=== PATIENT | female | born 1950 | race Caucasian/White ===

== ENCOUNTER 2018-06-22 05:56 | Inpatient (IN) | payer MEDICARE ==
[~2018-06-22] VITALS: Ht 149.9 cm; Wt 74.4 kg
[~2018-06-22 05:56] MED LIST: ALBU2.5V2 IH; ASCO125T PO; BUDE0.5A3 IH; BUPR100T6 PO; DIAZ5TAB PO; IPRA4AER IH; PED1TAB. PO; SUVO10TA2 PO; TRAM50TA PO; VERA180C2 PO; [UNRECOGNIZED DRUG - CODE] PO
[2018-06-22 06:00] VITALS: BP 158/73
[2018-06-22] MEDS ORDERED: DUONEB 0.5 MG-3 MG/3 ML SOLN IH STA ×3 (06:12→13:39)
[2018-06-22] MEDS ORDERED: SOLU-MEDROL IV STA (06:14)
[2018-06-22] MEDS ORDERED: DUONEB 0.5 MG-3 MG/3 ML SOLN IH ONE ×2 (06:16→15:58)
[2018-06-22] MEDS ORDERED: SOLU-MEDROL ONE (06:16)
--- NOTE | 2018-06-22 06:19 | ER.PDOC ---
General Chief Complaint: Requesting Medical Care Stated Complaint: ASTHMA Time seen by MD: 06:16 Source: patient Exam Limitations: no limitations History of Present Illness Initial Comments 67 y/o f with hx off and on sob last 2-3 days, to ED with increased wheezing this am. No chest pain, poss fever, no n/v/d. Did take breathing tx this am at home. Timing/Duration: 4-6 hours Severity: severe Activities at Onset: activity/exertion, rest Prior Episodes/Possible Cause: frequent episodes Modifying Factors: improves with albuterol inhaler, improves with albuterol nebulizer, improves with coughing Associated Symptoms: cough, wheezing Prior symptoms/Treatment: Similar symptoms previous Allergies: Coded Allergies: Penicillins (Unverified Allergy, Severe, CAN'T BREATH,SEVERE HEADACHE,RASH , 09/13/13) Latex, Natural Rubber (Verified Adverse Reaction, Severe, PULLS SKIN OFF, 02/05/14) Home Meds Reported Medications Suvorexant (Belsomra) 10 Mg Tablet, 10 MG PO DAILY, TABLET 11/29/14 Ipratropium/Albuterol Sulfate (COMBIVENT RESPIMAT INHAL SPRAY) Unknown Strength Aer.w.adap, IH RTQID PRN for SHORTNESS OF BREATH 09/13/13 Cyanocobalamin (Vitamin B-12) (VITAMIN B-12) 250 Mcg Tab.chew, PO DAILY, TAB.CHEW 09/13/13 Ped Multivit #22/Vit D3/Vit K (Multivitamins Chewable Tablet) 1 Each Tab.chew, PO DAILY, TAB.CHEW 09/13/13 Ascorbic Acid (Vitamin C) 125 Mg Tab.chew, PO DAILY, TAB.CHEW 09/13/13 Tramadol Hcl (TRAMADOL HCL) 50 Mg Tablet, 50 MG PO BID PRN for PAIN, TABLET 09/13/13 Bupropion Hcl (WELLBUTRIN) 100 Mg Tablet, 300 MG PO DAILY, TABLET 09/13/13 Diazepam (VALIUM) 5 Mg Tablet, 5 MG PO HS, TABLET 09/13/13 Ipratropium/Albuterol Sulfate (COMBIVENT RESPIMAT INHAL SPRAY) 4 Gm Aer.w.adap, IH DAILY 09/13/13 Albuterol Sulfate (ALBUTEROL SULFATE) 2.5 Mg/3 Ml Vial.neb, 2.5 MG IH DAILY 5/1/14 Budesonide (PULMICORT) 0.5 Mg/2 Ml Ampul.neb, 0.5 MG IH DAILY 09/13/13 Verapamil Hcl (VERAPAMIL ER) 180 Mg Cap24h.pel, 180 MG PO DAILY 09/13/13 Past Medical History Medical History: asthma Surgical History: appendectomy, cholecystectomy, hysterectomy, shoulder Family History Significant Family History: no pertinent family hx Social History Smoking: non-smoker Alcohol Use: none Drug Use: none Reviewed Nursing Reviewed: Vital Signs, Abn. Noted, Nursing Assessment Review of Systems Constitutional: see HPI, fever EENTM: no symptoms reported, other Respiratory: see HPI, cough, shortness of breath, wheezing Cardiovascular: no symptoms reported; denies see HPI, denies chest pain, denies edema, denies palpitations, denies syncope, denies other Gastrointestinal: no symptoms reported Genitourinary: no symptoms reported Musculoskeletal: no symptoms reported Skin: no symptoms reported Psychiatric/Neurological: no symptoms reported Endocrine: no symptoms reported Hematologic/Lymphatic: no symptoms reported All Other Systems: Reviewed and Negative Physical Exam General Appearance: Moderate Distress HEENT: PERRL/EOMI, Normal ENT Inspection, TMs Normal, Pharynx Normal Neck: Non-Tender, Full Range of Motion, Supple, Normal Inspection Respiratory: respiratory distress, decreased breath sounds, prolonged expirations, wheezing Cardiovascular: Normal Peripheral Pulses, Regular Rate, Rhythm, No Edema, No Gallop, No JVD, No Murmur Gastrointestinal: Normal Bowel Sounds, No Organomegaly, No Pulsatile Mass, Non Tender, Soft Rectal: Normal Exam Extremities: Normal Range of Motion, Non-Tender, Normal Inspection, No Pedal Edema, No Calf Tenderness, Normal Capillary Refill 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, No Motor/Sensory Deficits, Alert, Normal Mood/Affect, Oriented x 3 Skin: Normal Color, Warm/Dry Lymphatic: No Adenopathy Results/Orders Results/Orders Laboratory Tests Test 06/22/18 06:25 06/22/18 06:45 06/22/18 07:43 White Blood Count 8.3 10^3/uL (4.5-11.0) Red Blood Count 4.51 10^6/uL (4.00-5.20) Hemoglobin 13.4 g/dL (12.0-15.0) Hematocrit 41.1 % (36.0-46.0) Mean Corpuscular Volume 91.1 fL (78-100) Mean Corpuscular Hemoglobin 29.7 pg (26-34) Mean Corpuscular Hemoglobin Concent 32.6 g/dL (33-37) Red Cell Distribution Width 14.9 % (11.5-14.5) Platelet Count 217 10^3/uL (150-400) Mean Platelet Volume 9.0 fL (7.8-11.0) Prothrombin Time 10.3 SEC (9.8-11.9) Prothrombin Time INR (Non-Therap) 1.0 Activated Partial Thromboplast Time 25.1 SEC (24.67-30.72) Sodium Level 138 mmol/L (132-145) Potassium Level 3.5 mmol/L (3.6-5.2) Chloride Level 100.0 mmol/L (96-109) Carbon Dioxide Level 25.2 mmol/L (20.0-32) Anion Gap 16.3 Blood Urea Nitrogen 17 mg/dL (7-18) Creatinine 0.98 mg/dL (0.59-1.40) Estimated GFR () 68.7 (>/=60) BUN/Creatinine Ratio 17.0 Glucose Level 105 mg/dL (70-110) Calcium Level 8.7 mg/dL (8.4-10.5) Total Bilirubin 0.7 mg/dL (0.2-1.0) Aspartate Amino Transf (AST/SGOT) 17 U/L (0-35) Alanine Aminotransferase (ALT/SGPT) 19 U/L (12-78) Alkaline Phosphatase 107 U/L (50-136) Creatine Kinase MB < 0.5 ng/mL (0.5-3.6) Troponin I < 0.02 ng/mL (0.00-0.05) Pro-B-Type Natriuretic Peptide 710 pg/mL (0-125) Total Protein 7.7 g/dL (6.4-8.2) Albumin 3.6 g/dL (3.4-5.0) Globulin 4.1 Influenza Type A Antigen POSITIVE (NEG) Influenza B Immunofluorescence NEGATIVE (NEG) Blood Gas Sample Site LEFT BRACHIAL ARTRY Blood Gas pH 7.578 (7.350-7.450) Blood Gas PCO2 30.3 mmHg (35.0-45.0) Blood Gas PO2 73.9 mmHg (75.0-100.0) Blood Gas HCO3 27.6 mmol/L (22.0-26.0) Blood Gas Base Excess 6.2 mmol/L (-2.0-2.0) Tim Test N/A Arterial Blood Oxygen Saturation 96.1 % (95-) Deoxyhemoglobin 3.8 % (0.2-0.6) Carboxyhemoglobin 1.1 % (0.5-1.5) Methemoglobin 0.3 % (0.2-0.6) Total Hemoglobin 13.8 % (13.5-17.5) Total Oxygen Concentration 18.4 % (13.5-17.5) Lactic Acid (Blood Gas) 1.1 MMOL/L (0.5-1.0) Blood Gas Temperature 37 Oxygen Delivery Method (LAB) RA FiO2 21 % (20-101) Bicarbonate 28.6 mmol/L (23-27) Administered Medications Medications (Trade) Dose Ordered Sig/Fani Route PRN Reason Start Time Stop Time Status Last Admin Dose Admin Albuterol/ Ipratropium (Duoneb 0.5 Mg-3 Mg/3 ml Soln) 3 ml STAT STAT IH 06/22/18 06:12 06/22/18 06:14 DC 06/22/18 06:23 Methylprednisolone Sodium Succinate (Solu-Medrol) 125 mg STAT STAT IV 06/22/18 06:14 06/22/18 06:17 DC 06/22/18 06:[address] Daugherty at 0700 EKG/XRAY/CT/US EKG: NSR EKG Comments: sinus tach XRAY: chest (No active disease) Departure Time of Disposition: 08:21 Disposition: 09 ADMITTED INPATIENT Impression: Primary Impression: Status asthmaticus Additional Impression: Influenza A Condition: Stable Referrals: MARCIE COYNE MD (PCP) PRIMARY CARE PROVIDER Comments Admitted to Dr. Wesley Duration or Time Spent with Pa: 60 mins Problem Qualifiers Primary Impression: Status asthmaticus Asthma severity: moderate Asthma persistence: unspecified Qualified Codes: J45.902 - Unspecified asthma with status asthmaticus BÁRBARA LOCKHART DO Jun 22, 2018 06:19 FABBY DAUGHERTY MD Jun 22, 2018 08:24
[2018-06-22 06:34] LABS: HEMOGLOBIN 13.4 g/dL (12.0-15.0); MEAN CELL HGB 29.7 pg (26-34); MEAN CELL HGB CONCENTRATION 32.6 g/dL (33-37); MEAN CORP VOLUME 91.1 fL (78-100); RED CELL DISTRIBUTION WIDTH 14.9 % (11.5-14.5); WHITE BLOOD CELL 8.3 10^3/uL (4.5-11.0)
--- NOTE | 2018-06-22 06:46 | PCM.EKG ---
[facility] Test Date: 2018-06-22 Test Time: 06:42:21 Pat Name: KEVIN ENCARNACION Department: Room: Gender: F Stock Holder: NICOLÁS : 1950 Requested By: BÁRBARA LOCKHART Order Number: [id number] Reading MD: Measurements Intervals [place] Rate: 115 P: 70 VA: 130 QRS: 62 QRSD: 70 T: 56 QT: 304 QTc: 420 Interpretive Statements Sinus tachycardia Low voltage QRS Borderline ECG Compared to ECG 06/27/2017 13:16:56 Atrial premature complex(es) no longer present Please click the below link to view image of tracing.
--- NOTE | 2018-06-22 07:12 | DIREP ---
PROCEDURE:CHEST 1 VIEW COMPARISON:[facility], CT, CT CHEST W/O, 06/27/2017, 03:05 PM. [facility], CR, XRAY CHEST SINGLE VW, 06/27/2017, 01:16 PM. [facility], CR, XRAY CHEST SINGLE VW, 07/21/2015, 01:20 PM. INDICATIONS:Short of breath FINDINGS: LUNGS/PLEURA:No significant pulmonary parenchymal abnormalities. No effusions. VASCULATURE:Normal. Unremarkable pulmonary vasculature. CARDIAC:Normal. No cardiac silhouette abnormality or cardiomegaly. MEDIASTINUM:Normal. No visible mass or adenopathy. BONES:Left shoulder arthroplasty pre surgical anchor in the right humeral head. Degenerative changes of the right shoulder. OTHER:Negative. CONCLUSION:No acute cardiopulmonary abnormalities. Dictated by: Douglas Matt M.D. on 06/22/2018 at 07:08 AM
[2018-06-22 07:15] LABS: ALANINE AMINOTRANSFERASE(ML) 19 U/L (12-78); ALKALINE PHOSPHATASE 107 U/L (50-136); ASPARTATE AMINO TRANSFERASE 17 U/L (0-35); CALCIUM 8.7 mg/dL (8.4-10.5); CARBON DIOXIDE 25.2 mmol/L (20.0-32); GLUCOSE 105 mg/dL (70-110)
[2018-06-22 07:55] LABS: ABG PCO2 30.3 mmHg (35.0-45.0); ABG PH 7.578 (7.350-7.450); BE(B) 6.2 mmol/L (-2.0-2.0); HCO3act 27.6 mmol/L (22.0-26.0); pO2 73.9 mmHg (75.0-100.0)
--- NOTE | 2018-06-22 08:04 | NUR ---
IRIS DALTONA ON PHONE WITH DR SIMMONS AT THIS TIME REGARDING PT.
[2018-06-22] MEDS ORDERED: DECADRON IH STA (08:07)
[2018-06-22] MEDS ORDERED: XOPENEX IH STA (08:07)
--- NOTE | 2018-06-22 08:26 | PRM.ACF1 ---
Date and Time Date and Time Time: Admission Criteria Forms ASTHMA Clinical Indications for Inpatient Care ([place]/check the applicable condition/criteria) Admission is indicated for 1 or more of the following(1)(2)(3)(4): [ ] I. Ventilatory support required [ ] II. Peak expiratory flow rate less than 25% of predicted or personal best before treatment [ ]III. Peak expiratory flow rate less than 40% of predicted or personal best after treatment [ ]IV. Peak expiratory flow rate between 40% and 60% of predicted or personal best after treatment, and 1 or more of the following: [ ] a. History of asthma requiring intubation [ ] b. Hospitalization for asthma within the past year [ ] c. Current or recent use of oral corticosteroids for asthma [ ] d. Use of more than 1 canister of inhaled beta2-agonist in past month [ ] e. Exacerbation due to allergic reaction to food [ ] f. Inadequate access to medical care or medications [ ] g. Adherence to post-discharge asthma regimen cannot be assured (eg, psychosocial problems, poor adherence, no available follow-up care) [ ] V. Hypoxemia as indicated by 1 or more of the following (1): [ ] a. Previously normal respiratory status with 1 or more of the following [ ]i. Arterial oxygen saturation (SaO2) less than 90% or arterial partial pressure of oxygen (PO2) less than 60 mm Hg (8.0 kPa) on room air[A] [ ] ii. Oxygen required to keep SaO2 greater than 90% or PO2 greater than 60 mm Hg (8.0 kPa) [ ] b. Chronic lung disease with 1 or more of the following (2): [ ]i. New requirement for supplemental oxygen to keep SaO2 at baseline or acceptable level [ ]ii. Required supplemental oxygen performable only in acute inpatient setting [ ]. PaCO2 elevation from baseline by 2 mm Hg (0.27 kPa) or greater [ ]VII. Cyanosis [ ]VIII. Silent chest (absent or markedly diminished breath sounds) [ ]IX. Cardiac dysrhythmia (eg, Bradycardia) [ ]a. Bradycardia as indicated by 1 or more of the following(1)(2): [ ] i. Heart rate less than 60 beats per minute in adult or child age 6 years or older [ ] ii. Heart rate less than 70 beats per minute in child 3 to 5 years of age [ ] iii. Heart rate less than 80 beats per minute in child 1 or 2 years of age [ ]iv. Heart rate less than 90 beats per minute in infant 6 to 11 months of age [ ] v. Heart rate less than 100 beats per minute in infant 3 to 5 months of age [ ] vi. Heart rate less than 110 beats per minute in from (full-term) to 3 months of age [ ]X. Hemodynamic instability indicated by 1 or more of the following(1)(2)(3 )(4)(5)(6)(7): [ ]a. Vital sign abnormality not readily corrected by appropriate treatment within 12 to 24 hours indicated by 1 or more of the following: [ ]i. Tachycardia as indicated by 1 or more of the following (1)(2): [ ] 1. Heart rate greater than 100 beats per minute in adult or child age 6 years or older [ ] 2. Heart rate greater than 115 beats per minute in child 3 to 5 years of age [ ] 3. Heart rate greater than 125 beats per minute in child 1 or 2 years of age [ ] 4. Heart rate greater than 130 beats per minute in 6 to 11 months of age [ ] 5. Heart rate greater than 150 beats per minute in infant 3 to 5 months of age [ ] 6. Heart rate greater than 160 beats per minute in 1 or 2 months of age [ ]ii. Hypotension as indicated by ALL of the following (1)(2)(3)(4): [ ] A. Not patient baseline (eg, healthy adult with low SBP) or intentional therapeutic goal (eg, low SBP as treatment goal in heart failure) [ ] B. Low blood pressure as indicated by 1 or more of the following: [ ]1. New onset of SBP less than 90 mm Hg in adult or child 10 years or older [ ]2. New decrease in SBP greater than 40 mm Hg in adult or child 10 years or older [ ]3. Mean arterial pressure[A] less than 70 mm Hg in adult or child 10 years or older [ ]4. New onset of SBP less than sum of 70 mm Hg plus twice patient's age in years in child 1 to 9 years of age [ ]5. New onset of SBP less than 70 mm Hg in infant 1 to 11 months of age [ ] iii. Orthostatic vital sign changes as indicated by 1 or more of the following (1): [ ] A. Fall in SBP of 20 mm Hg or more 1 to 3 minutes after patient sits or stands from recumbent position [ ] B. Fall in DBP of 10 mm Hg or more 1 to 3 minutes after patient sits or stands from recumbent position [ ]b. Vital sign abnormality that is severe indicated by 1 or more of the following: [ ]i. Inadequate perfusion as indicated by 1 or more of the following : [ ] A. Lactic acidosis, with lactic acid greater than 18 mg/dL (2 mmol /L) or base excess < -5mEq/L [ ]B. New abnormal capillary refill (longer than 3 seconds) [ ] C. Other metabolic acidosis (arterial pH < 7.35)not otherwise explained [ ]D. Myocardial ischemia [ ]E. Altered mental status indicated by 1 or more of the following(1) (2)(3)(4): [ ]1. Confusional state (eg,disorientation,difficulty following commands,deficit in attention) [ ]2. Lethargy (awake or arousal,but with drowsiness;reduced awareness of self and environment) [ ]3. Obtundation(ie,arousal with strong stimuli,lessened interesting environment, slowed responses to stimulation) [ ]4. Stupor (may be arousal but patient does not return to normal baseline level of awareness) [ ]5. Coma (not arousal) [ ]F. Reduced urine output as indicated by 1 or more of the following(1)(2): [ ]1. Urine output less than 0.5 mL/kg/hour for 6 hours in adult [ ]2. Anuria (urine output less than 0.1 mL/kg/hour) for 4 hours in any age group [ ]3. Reduced output in child as indicated by 1 or more of the following (3): [ ]i. Urine output less than 2 mL/kg/hour for 6 hours in younger than 2 years [ ] ii. Urine output less than 1 mL/kg/hour for 6 hours in child younger than 12 years [ ] iii. Urine output less than 0.75 mL/kg/h [ ] ii. Mean arterial pressure[A] less than 60 mm Hg [ ] iii. Mean arterial pressure[A] less than 70 mm Hg after 30 minutes of appropriate treatment (eg, fluid resuscitation) [ ]iv. IV inotropic or vasopressor medication required to maintain adequate blood pressure or perfusion [ ]v. Sustained heart rate greater than 120 beats per minute in adult or child 6 years or older [ ] XI. Altered mental status indicated by 1 or more of the following(1)(2)(3) (4): [ ] a. Confusional state (eg,disorientation,difficulty following commands, deficit in attention) [ ] b. Lethargy (awake or arousal,but with drowsiness;reduced awareness of self and environment) [ ] c. Obtundation(ie,arousal with strong stimuli,lessened interesting environment, slowed responses to stimulation) [ ] d. Stupor (may be arousal but patient does not return to normal baseline level of awareness) [ ] e. Coma (not arousal) [ ]XII. Radiographic evidence of complication requiring inpatient treatment ( eg, pneumonia, pneumothorax) [ ]XIII. Inpatient admission required[A] rather than observation care) because of 1 or more of the following: [ ]a. Respiratory finding that is severe or persistent (eg, dyspnea, Tachypnea, accessory muscle use) [ ] i. Tachypnea as indicated by respiratory rate of 1 or more of the following(1)(2): [ ]1. Greater than 18 breaths per minute in adult or child age 12 years or older [ ]2. Greater than 22 breaths per minute in child 6 to 11 years of age [ ]3. Greater than 25 breaths per minute in child 3 to 5 years of age [ ]4. Greater than 30 breaths per minute in child 1 or 2 years of age [ ]5. Greater than 40 breaths per minute in 6 to 11 months of age [ ]6. Greater than 45 breaths per minute in 3 to 5 months of age [ ]7. Greater than 60 breaths per minute in 1 or 2 months of age [ ]ii. Other condition, treatment, or monitoring requiring inpatient admission Extended stay beyond goal length of stay may be needed for(1)(25)(27): [ ] I. Severe respiratory distress or respiratory failure(22)(23)(28)(29) [ ] a. Anticipate possible mechanical ventilation or noninvasive positive pressure ventilation. [ ] b. Patient requiring mechanical ventilation or noninvasive ventilation for status asthmaticus may require longer duration of therapy before adequate response. [ ]c. Anticipate intense bronchodilator treatment with continuous nebulization. [x ] II. Status asthmaticus [ ]a. Resistant and severe signs and symptoms of asthma despite aggressive conventional treatment, including intubation and mechanical ventilation, may require general anesthesia. [ ]III. Chronic obstructive asthma (eg, asthma-COPD overlap syndrome) (30) [ ]a. Severe attacks may result in slow resolution of admission indicators. [ ] b. Anticipate continued intense bronchodilation treatment and flow monitoring. [ ] IV. Secondary causes and complications (24) [ ]a. Infectious causes (eg, pneumonia) and asthma complications(eg , pneumothorax) may require additional therapy. [ ]V. Clinically significant exacerbation of comorbidities (eg, congestive heart failure, atrial fibrillation) [ ]a. Anticipate specific treatment of comorbidity. [ ]. Slow resolution [ ] a. Severe attacks may result in slow resolution of admission indicators. oxygen as needed. [ ] b. Anticipate continued intense bronchodilation treatment, flow monitoring, and oxygen as needed [ ]VII. Older patient (28) [x ]a. Patient 65 years or older may require longer acute hospital care. The original [employer] content created by [employer] has been revised. The portions of the content which have been revised are identified through the use of italic text or in bold, and [employer] has neither reviewed nor approved the modified material. All other unmodified content is copyright [employer] FOOTNOTES: (Only relevant footnotes and references have been used in this form) FABBY DAUGHERTY MD Jun 22, 2018 08:26
[2018-06-22] MEDS ORDERED: D5W-1/2 NS/KCL 20MEQ 1,000 ML IV STA (08:34)
[2018-06-22] MEDS ORDERED: TAMIFLU PO STA (08:34)
[2018-06-22] MEDS ORDERED: TAMIFLU PO ONE (08:35)
[2018-06-22] MEDS ORDERED: D5W-1/2 NS/KCL 20MEQ 1,000 ML ONE ×2 (08:35→19:34)
--- NOTE | 2018-06-22 09:06 | NUR ---
[facility] THEY ARE WAITING ON STAT CLEAN OF ROOM
--- NOTE | 2018-06-22 09:30 | NUR ---
ARRIVAL PT ARRIVED FROM ER AT THIS TIME. REPORT RECEIVED FROM Kade LORENZO RN AND ASSUMED CARE OF PT
[2018-06-22 09:41] VITALS: BP 119/59
[2018-06-22 12:04] VITALS: BP 122/58
[2018-06-22] MEDS: TAMIFLU PO SCH ×2 (12:42→20:50)
[2018-06-22] MEDS ORDERED: TYLENOL PO PRN (14:00)
--- NOTE | 2018-06-22 14:01 | PCM.HP ---
History of Present Illness Reason for Visit: Dyspnea History of Present Illness Patient is a 67 F PMH of HTN and asthma presents today with 4-5 day worsening dyspnea with fever. Patient found to have Influenza A and Asthma exacerbation. Patient started on IV steroids and Nebs with improvement in symptoms. CXR negative for acute pathology. Patient still having mild respiratory distress during my evaluation but she does feel better. Patient requires frequent hospitalization but never required intubation. She states she responds well to IV steroids. She denies any other complaints. Past Medical History Cardiac: HTN Pulmonary: Asthma Past Surgical History: Appendectomy, Cholecystectomy, Other (Hysterectomy, Left Shoulder Arthroplasty, right shoulder arthroscopy) Past Social History Smoke: Quit Alcohol: none Drugs: None Lives: with Family Travel Hx EBOLA RISK:Travel to/contact w: No Is pt experiencing any Ebola s: No Review of Systems Constitutional: Fever; No: Chills Eyes: No: Vision change, Conjunctivae inflammation, Eyelid inflammation ENT: No: Nose discharge, Nose congestion Respiratory: Cough, Shortness of breath, SOB with excertion, Wheezing Cardiovascular: Palpitations; No: Chest Pain, Edema Gastrointestinal: No: Nausea, Vomiting, Abdominal Pain, Diarrhea, Constipation Genitourinary: No Dysuria, No Frequency, No Hematuria, No Retention Musculoskeletal: No: neck pain, back pain Skin: No: Rash, Lesions, Jaundice, Bruising Neurological: No: Weakness, Numbness, Incoordination, Change in speech, Confusion, Seizures Allergies: Coded Allergies: Penicillins (Unverified Allergy, Severe, CAN'T BREATH,SEVERE HEADACHE,RASH , 09/13/13) Latex, Natural Rubber (Verified Adverse Reaction, Severe, PULLS SKIN OFF, 02/05/14) Scheduled Albuterol Sulfate (Albuterol Sulfate), 2.5 MG IH DAILY, (Reported) Ascorbic Acid (Vitamin C), Unknown Dose PO DAILY, (Reported) Budesonide (Pulmicort), 0.5 MG IH DAILY, (Reported) Cyanocobalamin (Vitamin B-12) (Vitamin B-12), Unknown Dose PO DAILY, (Reported) Ipratropium/Albuterol Sulfate (Combivent Respimat Inhal [place]), Unknown Dose IH DAILY, (Reported) Ped Multivit #22/Vit D3/Vit K (Multivitamins Chewable Tablet), Unknown Dose PO DAILY, (Reported) Verapamil Hcl (Verapamil Er), 180 MG PO DAILY, (Reported) Scheduled PRN Ipratropium/Albuterol Sulfate (Combivent Respimat Inhal [place]), Unknown Dose IH RTQID PRN for SHORTNESS OF BREATH, (Reported) Discontinued Medications Bupropion Hcl (Wellbutrin), 300 MG PO DAILY, (Reported) Discontinued Reason: No Longer Taking Diazepam (Valium), 5 MG PO HS, (Reported) Discontinued Reason: No Longer Taking Suvorexant (Belsomra), 10 MG PO DAILY, (Reported) Discontinued Reason: No Longer Taking Tramadol Hcl (Tramadol Hcl), 50 MG PO BID PRN for PAIN, (Reported) Discontinued Reason: No Longer Taking VTE VTE Risk Total Score: 3 VTE Risk Score VTE Risk: Score 0-1 = Low Risk (Aggressive mobilization; early ambulation; no VTE prophylaxis required) Score 2: Moderate Risk (Intermittent/Pneumatic Compression Device OR Lovenox/Heparin/Coumadin) Score 3-4: High Risk (Intermittent/Pneumatic Compression Device AND Lovenox/Heparin/Coumadin) Score > or =5: Highest Risk (Intermittent/Pneumatic Compression Device AND Lovenox/Heparin/Coumadin) VTE VTE Present on Admission: No Currently receiving anticoagul: No VTE Risk Total Score: 3 Exam Vital Signs Vital Signs Date Time Temp Pulse Resp B/P (MAP) Pulse Ox O2 Delivery O2 Flow Rate FiO2 06/22/18 12:04 98.4 92 18 122/58 (79) 91 Room Air 98.4 General Appearance: Alert, Oriented X3, Cooperative, mild distress HEENT: Atraumatic, PERRLA, EOMI, Mucous membr. moist/pink Respiratory: Other (diffuse wheezing, decreased aeration) Cardiovascular: Normal S1, Normal S2, No murmurs, Other (tachycardia) Extremities: No edema, Normal pulses, No tenderness/swelling Skin: No rash, No breakdown, No lesions Neuro: Normal gait, Normal speech, Strength at 5/5 X4 ext, Normal tone, Sensation intact, Cranial nerves 3-12 NL Psych/Mental Status: Mental status NL, Mood NL Assessment/Plan Assessment/Plan Assessment/Plan Patient is a 67 F PMH of HTN and asthma presents today with 4-5 day worsening dyspnea with fever. Patient History: Patient reports no known family medical history. Plan 1. Asthma Exacerbation: cont IV steroids, Nebs, O2 support. 2. Influenza A: cont Tamiflu, treat fever PRN 3. HTN: cont home meds 4. PPx: PPI BID, GUDELIA Harvey MD Jun 22, 2018 14:01
[2018-06-22] MEDS ORDERED: DIAZ5TAB PO (14:28)
[2018-06-22] MEDS ORDERED: FLUT1AER IH (14:28)
[2018-06-22] MEDS: LOVENOX SQ SCH (15:09)
[2018-06-22] MEDS: SOLU-MEDROL IV SCH ×2 (15:09→20:49)
[2018-06-22 16:29] VITALS: BP 124/61
[2018-06-22] MEDS: DUONEB 0.5 MG-3 MG/3 ML SOLN IH SCH ×2 (16:37→20:11)
[2018-06-22 20:09] VITALS: BP 139/63
[2018-06-22] MEDS: VALIUM PO PRN (20:50)
[2018-06-22] MEDS: PROTONIX PO SCH (20:50)
[2018-06-23] VITALS (7 sets, daily range): BP systolic 113–158; BP diastolic 54–76
[2018-06-23] MEDS: DUONEB 0.5 MG-3 MG/3 ML SOLN IH SCH ×6 (00:50→20:00)
[2018-06-23] MEDS: VALIUM PO PRN (03:16)
[2018-06-23 05:23] LABS: BASOPHIL % 0.1 % (0.0-0.2); HEMOGLOBIN 13.6 g/dL (12.0-15.0); LYMPHOCYTES # 0.6 10^3/uL (1.0-4.8); LYMPHOCYTES % 5.7 % (24.0-44.0); MEAN CELL HGB 29.6 pg (26-34); MEAN CELL HGB CONCENTRATION 32.2 g/dL (33-37); MEAN CORP VOLUME 91.9 fL (78-100); MEAN PLATELET VOLUME 9.2 fL (7.8-11.0); MONOCYTES # 0.6 10^3/uL (0.3-0.8); MONOCYTES % 5.1 % (5.0-12.0); NEUTROPHIL # 9.8 10^3/uL (1.8-7.7); NEUTROPHILS % 88.6 % (41.0-85.0); RED CELL DISTRIBUTION WIDTH 14.5 % (11.5-14.5); WHITE BLOOD CELL 11.1 10^3/uL (4.5-11.0)
[2018-06-23 05:48] LABS: CALCIUM 9.1 mg/dL (8.4-10.5); CARBON DIOXIDE 21.9 mmol/L (20.0-32)
[2018-06-23 06:06] LABS: BAND NEUTROPHILS 1 % (2-6); LYMPHOCYTE 6 % (25-36); MONOCYTE 4 % (3-9); SEGMENTED NEUTROPHILS 89 % (31-76)
[2018-06-23] MEDS: SOLU-MEDROL IV SCH ×2 (07:01→20:56)
[2018-06-23] MEDS: PULMICORT IH SCH ×2 (08:20→20:01)
[2018-06-23] MEDS ORDERED: PROTONIX PO SCH (09:00)
--- NOTE | 2018-06-23 10:14 | NUR ---
DISCHARGE PLAN SPOKE TO PATIENT ABOUT DISCHARGE PLAN AND NEEDS. PT STATES SHE LIVES AT HOME WITH SPOUSE AND OTHER FAMILY MEMBERS. 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 PT STATES SHE IS INDEPENDENT OF ADL'S. PCP IS DR. BARNETT. THERE IS NO DME EQUIPMENT IN THE HOME. PT STATES THAT SHE IS ABLE TO AFFORD MEDICATIONS. DISCHARGE GOAL IS TO DISCHARGE HOME SELF CARE. NO OTHER NEEDS NOTED AT THIS TIME.
[2018-06-23] MEDS: CALAN PO SCH (10:36)
[2018-06-23] MEDS: TAMIFLU PO SCH ×2 (10:37→20:56)
[2018-06-23] MEDS: PROTONIX PO SCH ×2 (10:37→20:56)
--- NOTE | 2018-06-23 11:46 | NUR ---
DISCHARGE PLAN UPDATE CHOICE LETTER PRESENTED TO PT, SIGNED AND PLACED IN CHART. PT DENIES NEED FOR HOME HEALTH OR OUTPT SERVICES AT THIS TIME.
--- NOTE | 2018-06-23 12:53 | PRM.PN ---
Subjective Subjective Date: Jun 23, 2018 Time: 12:50 Subjective Patient with significant improvement. Will decrease steroids today. No fever, no resp distress. Likely home in AM. Patient History: Patient reports no known family medical history. VTE VTE Risk Total Score: 3 VTE Risk Score VTE Risk: Score 0-1 = Low Risk (Aggressive mobilization; early ambulation; no VTE prophylaxis required) Score 2: Moderate Risk (Intermittent/Pneumatic Compression Device OR Lovenox/Heparin/Coumadin) Score 3-4: High Risk (Intermittent/Pneumatic Compression Device AND Lovenox/Heparin/Coumadin) Score > or =5: Highest Risk (Intermittent/Pneumatic Compression Device AND Lovenox/Heparin/Coumadin) Review of Systems Gastrointestinal: Constipation Allergies: Coded Allergies: Penicillins (Unverified Allergy, Severe, CAN'T BREATH,SEVERE HEADACHE,RASH , 09/13/13) Latex, Natural Rubber (Verified Adverse Reaction, Severe, PULLS SKIN OFF, 02/05/14) Scheduled Albuterol Sulfate (Albuterol Sulfate), 2.5 MG IH DAILY, (Reported) Budesonide (Pulmicort), 0.5 MG IH DAILY, (Reported) Fluticasone/Vilanterol (Breo Ellipta 100-25 Mcg INH), 1 EACH IH DAILY24, ( Reported) Ipratropium/Albuterol Sulfate (Combivent Respimat Inhal Perry), Unknown Dose IH DAILY, (Reported) Verapamil Hcl (Verapamil Er), 180 MG PO DAILY, (Reported) Scheduled PRN Diazepam (Valium), 1 TAB PO BID PRN for ANXIETY, (Reported) Ipratropium/Albuterol Sulfate (Combivent Respimat Inhal Perry), Unknown Dose IH RTQID PRN for SHORTNESS OF BREATH, (Reported) Discontinued Medications Ascorbic Acid (Vitamin C), Unknown Dose PO DAILY, (Reported) Discontinued Reason: No Longer Taking Bupropion Hcl (Wellbutrin), 300 MG PO DAILY, (Reported) Discontinued Reason: No Longer Taking Cyanocobalamin (Vitamin B-12) (Vitamin B-12), Unknown Dose PO DAILY, (Reported) Discontinued Reason: No Longer Taking Diazepam (Valium), 5 MG PO HS, (Reported) Discontinued Reason: No Longer Taking Ped Multivit #22/Vit D3/Vit K (Multivitamins Chewable Tablet), Unknown Dose PO DAILY, (Reported) Discontinued Reason: No Longer Taking Suvorexant (Belsomra), 10 MG PO DAILY, (Reported) Discontinued Reason: No Longer Taking Tramadol Hcl (Tramadol Hcl), 50 MG PO BID PRN for PAIN, (Reported) Discontinued Reason: No Longer Taking Objective Vitals and I/O Vital Sign - Last 24 Hours 06/22/18 06/22/18 06/22/18 06/22/18 14:02 14:04 14:10 16:29 Temp 97.5 97.5 Pulse 95 103 86 Resp 20 20 20 17 B/P (MAP) 124/61 (82) Pulse Ox 93 93 95 91 O2 Delivery Room Air 06/22/18 06/22/18 06/22/18 06/22/18 16:37 16:43 20:09 20:13 Temp 97.5 97.5 Pulse 87 96 88 88 Resp 20 24 20 20 B/P (MAP) 139/63 (88) Pulse Ox 95 96 92 92 O2 Delivery Room Air Room Air FiO2 21 06/22/18 06/22/18 06/22/18 06/23/18 20:13 20:13 20:17 00:29 Temp 97.8 97.8 Pulse 88 88 88 Resp 20 20 19 B/P (MAP) 142/76 (98) Pulse Ox 92 92 92 O2 Delivery Room Air Room Air 06/23/18 06/23/18 06/23/18 06/23/18 00:49 00:51 04:26 04:29 Pulse 81 88 83 77 Resp 20 18 16 16 Pulse Ox 94 94 94 97 06/23/18 06/23/18 06/23/18 06/23/18 04:39 08:20 08:28 10:34 Temp 97.6 97.5 97.6 97.5 Pulse 86 86 88 90 Resp 20 16 16 20 B/P (MAP) 144/73 (96) 131/58 (82) Pulse Ox 90 96 96 92 O2 Delivery Room Air Room Air 06/23/18 06/23/18 10:36 10:44 Pulse 90 B/P (MAP) 131/58 O2 Delivery Room Air Intake and Output 06/22/18 06/22/18 06/23/18 15:01 23:01 07:01 Intake Total 240 ml 240 ml 480 ml Output Total 900 ml 650 ml Balance 240 ml -660 ml -170 ml General: Alert, Oriented X3, Cooperative, mild distress HEENT: Atraumatic, PERRLA, EOMI, Mucous membr. moist/pink Neck: Supple, No JVD Lungs: Other (diffuse wheezing, decreased aeration) Heart: Normal S1, Normal S2, No murmurs, Other (tachycardia) Abdomen: Normal bowel sounds, Soft, No tenderness Extremities: No edema, Normal pulses, No tenderness/swelling Skin: No rashes, No breakdown, No significant lesion Neuro: Normal gait, Normal speech, Strength at 5/5 X4 ext, Normal tone, Sensation intact, Cranial nerves 3-12 NL Psych/Mental Status: Mental status NL, Mood NL All Results(Lab/Rad) Laboratory Tests Test 06/23/18 05:05 06/23/18 05:28 White Blood Count 11.1 10^3/uL Red Blood Count 4.59 10^6/uL Hemoglobin 13.6 g/dL Hematocrit 42.2 % Mean Corpuscular Volume 91.9 fL Mean Corpuscular Hemoglobin 29.6 pg Mean Corpuscular Hemoglobin Concent 32.2 g/dL Red Cell Distribution Width 14.5 % Platelet Count 201 10^3/uL Mean Platelet Volume 9.2 fL Neutrophils (%) (Auto) 88.6 % Lymphocytes (%) (Auto) 5.7 % Monocytes (%) (Auto) 5.1 % Neutrophils # (Auto) 9.8 10^3/uL Lymphocytes # (Auto) 0.6 10^3/uL Monocytes # (Auto) 0.6 10^3/uL Absolute Immature Granulocyte (auto 0.06 10^3 u/L Eosinophils % 0.0 % Basophils % 0.1 % Basophils # 0.0 10^3/uL Eosinophil Count 0.0 10^3/uL Sodium Level 140 mmol/L Potassium Level 3.5 mmol/L Chloride Level 105.0 mmol/L Carbon Dioxide Level 21.9 mmol/L Anion Gap 16.6 Blood Urea Nitrogen 13 mg/dL Creatinine 0.97 mg/dL Estimated GFR () 69.5 BUN/Creatinine Ratio 13.0 Glucose Level 164 mg/dL Calcium Level 9.1 mg/dL Total Bilirubin 0.4 mg/dL Aspartate Amino Transf (AST/SGOT) 14 U/L Alanine Aminotransferase (ALT/SGPT) 18 U/L Alkaline Phosphatase 101 U/L Total Protein 7.8 g/dL Albumin 3.3 g/dL Globulin 4.5 Percent Immature Gran (Cell Imm) 0.50 % Differential Total Cells Counted 100 #CELLS Segmented Neutrophils 89 % Band Neutrophils 1 % Lymphocytes 6 % Monocytes 4 % Platelet Estimate ADEQUATE Platelet Morphology NORMAL Blood Morphology Comment NORMAL MORPHOLOGY Current Medications Medications (Trade) Dose Ordered Sig/Fani Route PRN Reason Start Time Stop Time Status Last Admin Dose Admin Albuterol/ Ipratropium (Duoneb 0.5 Mg-3 Mg/3 ml Soln) 3 ml STAT STAT IH 06/22/18 06:12 06/22/18 06:14 DC 06/22/18 06:23 Methylprednisolone Sodium Succinate (Solu-Medrol) 125 mg STAT STAT IV 06/22/18 06:14 06/22/18 06:17 DC 06/22/18 06:20 Albuterol/ Ipratropium (Duoneb 0.5 Mg-3 Mg/3 ml Soln) 3 ml STK-MED ONCE IH 06/22/18 06:16 06/22/18 06:19 DC Methylprednisolone Sodium Succinate (Solu-Medrol) 125 mg STK-MED ONCE .ROUTE 06/22/18 06:16 06/22/18 06:20 DC Levalbuterol HCl (Xopenex) 1.25 mg STAT STAT IH 06/22/18 08:07 06/22/18 09:24 DC 06/22/18 08:40 Dexamethasone Sodium Phosphate (Decadron) 4 mg STAT STAT IH 06/22/18 08:07 06/22/18 09:24 DC 06/22/18 08:40 Oseltamivir Phosphate (Tamiflu) 75 mg STAT STAT PO 06/22/18 08:34 06/22/18 08:37 DC 06/22/18 08:40 Oseltamivir Phosphate (Tamiflu) 75 mg BID PO 06/22/18 09:00 07/22/18 08:59 06/23/18 10:37 Potassium Chloride/Dextrose/ Sod Cl 1,000 ml @ 100 mls/hr Q10H STAT IV 06/22/18 08:34 06/22/18 18:33 DC 06/22/18 08:40 Albuterol/ Ipratropium (Duoneb 0.5 Mg-3 Mg/3 ml Soln) 3 ml STAT STAT IH 06/22/18 08:34 06/22/18 08:37 DC Methylprednisolone Sodium Succinate (Solu-Medrol) 60 mg Q8HR IV 06/22/18 14:00 06/23/18 12:50 DC 06/23/18 07:01 Oseltamivir Phosphate (Tamiflu) 75 mg STK-MED ONCE PO 06/22/18 08:35 06/22/18 08:38 DC Potassium Chloride/Dextrose/ Sod Cl 1,000 ml @ ud STK-MED ONCE .ROUTE 06/22/18 08:35 06/22/18 08:39 DC Pantoprazole Sodium (Protonix) 40 mg DAILY PO 06/23/18 09:00 06/23/18 09:00 DC Albuterol/ Ipratropium (Duoneb 0.5 Mg-3 Mg/3 ml Soln) 3 ml RTQ4 IH 06/22/18 17:00 07/22/18 16:59 06/23/18 08:20 Albuterol/ Ipratropium (Duoneb 0.5 Mg-3 Mg/3 ml Soln) 3 ml STAT STAT IH 06/22/18 13:39 06/22/18 13:55 DC 06/22/18 14:02 Pantoprazole Sodium (Protonix) 40 mg BID PO 06/22/18 21:00 07/23/18 08:59 06/23/18 10:37 Acetaminophen (Tylenol) 650 mg Q6HR PRN PO FEVER 06/22/18 14:00 07/22/18 13:59 Budesonide (Pulmicort) 0.5 mg DAILY IH 06/23/18 09:00 07/23/18 08:59 06/23/18 08:20 Verapamil HCl (Calan) 180 mg DAILY PO 06/23/18 09:00 07/23/18 08:59 06/23/18 10:36 Enoxaparin Sodium (Lovenox) 40 mg Q24HRS SQ 06/22/18 14:30 07/22/18 14:29 06/22/18 15:09 Albuterol/ Ipratropium (Duoneb 0.5 Mg-3 Mg/3 ml Soln) 3 ml STK-MED ONCE IH 06/22/18 15:58 06/22/18 16:02 DC Diazepam (Valium) 5 mg Q6 PRN PO ANXIETY 06/22/18 20:00 06/23/18 12:40 DC 06/23/18 03:16 Potassium Chloride/Dextrose/ Sod Cl 1,000 ml @ ud STK-MED ONCE .ROUTE 06/22/18 19:34 06/22/18 19:38 DC Diazepam (Valium) 5 mg HS PRN PO ANXIETY 06/23/18 13:00 07/22/18 19:59 UNV Methylprednisolone Sodium Succinate (Solu-Medrol) 60 mg BID IV 06/23/18 21:00 07/22/18 13:59 UNV Course Sepsis Screening Results: Posi: NEGATIVE Sepsis Qualifier/Stage: NO DEFINITE RISK Duration or Total Time Spent w: 60 mins Vitals & review Data Vital Sign - Last 24 Hours 06/22/18 06/22/18 06/22/18 06/22/18 14:02 14:04 14:10 16:29 Temp 97.5 97.5 Pulse 95 103 86 Resp 20 20 20 17 B/P (MAP) 124/61 (82) Pulse Ox 93 93 95 91 O2 Delivery Room Air 06/22/18 06/22/18 06/22/18 06/22/18 16:37 16:43 20:09 20:13 Temp 97.5 97.5 Pulse 87 96 88 88 Resp 20 24 20 20 B/P (MAP) 139/63 (88) Pulse Ox 95 96 92 92 O2 Delivery Room Air Room Air FiO2 21 06/22/18 06/22/18 06/22/18 06/23/18 20:13 20:13 20:17 00:29 Temp 97.8 97.8 Pulse 88 88 88 Resp 20 20 19 B/P (MAP) 142/76 (98) Pulse Ox 92 92 92 O2 Delivery Room Air Room Air 06/23/18 06/23/18 06/23/18 06/23/18 00:49 00:51 04:26 04:29 Pulse 81 88 83 77 Resp 20 18 16 16 Pulse Ox 94 94 94 97 06/23/18 06/23/18 06/23/18 06/23/18 04:39 08:20 08:28 10:34 Temp 97.6 97.5 97.6 97.5 Pulse 86 86 88 90 Resp 20 16 16 20 B/P (MAP) 144/73 (96) 131/58 (82) Pulse Ox 90 96 96 92 O2 Delivery Room Air Room Air 06/23/18 06/23/18 10:36 10:44 Pulse 90 B/P (MAP) 131/58 O2 Delivery Room Air Intake and Output 06/22/18 06/22/18 06/23/18 15:01 23:01 07:01 Intake Total 240 ml 240 ml 480 ml Output Total 900 ml 650 ml Balance 240 ml -660 ml -170 ml Laboratory Tests Test 06/22/18 06:25 06/22/18 06:45 06/22/18 07:43 06/23/18 05:05 White Blood Count 8.3 10^3/uL 11.1 10^3/uL Red Blood Count 4.51 10^6/uL 4.59 10^6/uL Hemoglobin 13.4 g/dL 13.6 g/dL Hematocrit 41.1 % 42.2 % Mean Corpuscular Volume 91.1 fL 91.9 fL Mean Corpuscular Hemoglobin 29.7 pg 29.6 pg Mean Corpuscular Hemoglobin Concent 32.6 g/dL 32.2 g/dL Red Cell Distribution Width 14.9 % 14.5 % Platelet Count 217 10^3/uL 201 10^3/uL Mean Platelet Volume 9.0 fL 9.2 fL Prothrombin Time 10.3 SEC Prothrombin Time INR (Non-Therap) 1.0 Activated Partial Thromboplast Time 25.1 SEC Sodium Level 138 mmol/L 140 mmol/L Potassium Level 3.5 mmol/L 3.5 mmol/L Chloride Level 100.0 mmol/L 105.0 mmol/L Carbon Dioxide Level 25.2 mmol/L 21.9 mmol/L Anion Gap 16.3 16.6 Blood Urea Nitrogen 17 mg/dL 13 mg/dL Creatinine 0.98 mg/dL 0.97 mg/dL Estimated GFR () 68.7 69.5 BUN/Creatinine Ratio 17.0 13.0 Glucose Level 105 mg/dL 164 mg/dL Calcium Level 8.7 mg/dL 9.1 mg/dL Total Bilirubin 0.7 mg/dL 0.4 mg/dL Aspartate Amino Transf (AST/SGOT) 17 U/L 14 U/L Alanine Aminotransferase (ALT/SGPT) 19 U/L 18 U/L Alkaline Phosphatase 107 U/L 101 U/L Creatine Kinase MB < 0.5 ng/mL Troponin I < 0.02 ng/mL Pro-B-Type Natriuretic Peptide 710 pg/mL Total Protein 7.7 g/dL 7.8 g/dL Albumin 3.6 g/dL 3.3 g/dL Globulin 4.1 4.5 Influenza Type A Antigen POSITIVE Influenza B Immunofluorescence NEGATIVE Blood Gas Sample Site LEFT BRACHIAL ARTRY Blood Gas pH 7.578 Blood Gas PCO2 30.3 mmHg Blood Gas PO2 73.9 mmHg Blood Gas HCO3 27.6 mmol/L Blood Gas Base Excess 6.2 mmol/L Tim Test N/A Arterial Blood Oxygen Saturation 96.1 % Deoxyhemoglobin 3.8 % Carboxyhemoglobin 1.1 % Methemoglobin 0.3 % Total Hemoglobin 13.8 % Total Oxygen Concentration 18.4 % Lactic Acid (Blood Gas) 1.1 MMOL/L Blood Gas Temperature 37 Oxygen Delivery Method (LAB) RA FiO2 21 % Bicarbonate 28.6 mmol/L Neutrophils (%) (Auto) 88.6 % Lymphocytes (%) (Auto) 5.7 % Monocytes (%) (Auto) 5.1 % Neutrophils # (Auto) 9.8 10^3/uL Lymphocytes # (Auto) 0.6 10^3/uL Monocytes # (Auto) 0.6 10^3/uL Absolute Immature Granulocyte (auto 0.06 10^3 u/L Eosinophils % 0.0 % Basophils % 0.1 % Basophils # 0.0 10^3/uL Eosinophil Count 0.0 10^3/uL Percent Immature Gran (Cell Imm) 0.50 % Test 06/23/18 05:28 Differential Total Cells Counted 100 #CELLS Segmented Neutrophils 89 % Band Neutrophils 1 % Lymphocytes 6 % Monocytes 4 % Platelet Estimate ADEQUATE Platelet Morphology NORMAL Blood Morphology Comment NORMAL MORPHOLOGY Current Medications Medications (Trade) Dose Ordered Sig/Fani PRN Reason Start Time Stop Time Status Last Admin Acetaminophen (Tylenol) 650 mg Q6HR PRN FEVER 06/22/18 14:00 07/22/18 13:59 Albuterol/ Ipratropium (Duoneb 0.5 Mg-3 Mg/3 ml Soln) 3 ml RTQ4 06/22/18 17:00 07/22/18 16:59 06/23/18 08:20 Budesonide (Pulmicort) 0.5 mg DAILY 06/23/18 09:00 07/23/18 08:59 06/23/18 08:20 Diazepam (Valium) 5 mg HS PRN ANXIETY 06/23/18 13:00 07/22/18 19:59 UNV Enoxaparin Sodium (Lovenox) 40 mg Q24HRS 06/22/18 14:30 07/22/18 14:29 06/22/18 15:09 Methylprednisolone Sodium Succinate (Solu-Medrol) 60 mg BID 06/23/18 21:00 07/22/18 13:59 UNV Oseltamivir Phosphate (Tamiflu) 75 mg BID 06/22/18 09:00 07/22/18 08:59 06/23/18 10:37 Pantoprazole Sodium (Protonix) 40 mg BID 06/22/18 21:00 07/23/18 08:59 06/23/18 10:37 Verapamil HCl (Calan) 180 mg DAILY 06/23/18 09:00 07/23/18 08:59 06/23/18 10:36 Sepsis Infection Criteria Pres: Documented Infection LEVEL 1 SEPSIS INFECTION CRITE: Flu-Pneumonia LEVEL 2-SIRS (LIST ALL THAT AP: None/Not assessed O2 Sat by Pulse Oximetry: 92 Assessment/Plan Assessment/Plan Assessment/Plan Patient is a 67 F PMH of HTN and asthma presents today with 4-5 day worsening dyspnea with fever. Plan 1. Asthma Exacerbation: decrease IV steroids, cont nebs/O2 support. Possible d /c in AM. 2. Influenza A: cont Tamiflu, treat fever PRN 3. HTN: cont home meds 4. PPx: PPI BID, Lovenox GUDELIA SIMMONS MD Jun 23, 2018 12:53
[2018-06-23] MEDS ORDERED: VALIUM PO PRN (13:00)
[2018-06-23] MEDS: LOVENOX SQ SCH (14:20)
--- NOTE | 2018-06-23 19:05 | NUR ---
BEDSIDE REPORT BEDSIDE REPORT GIVEN TO NIGHT NURSE ELLEN CASAS.
--- NOTE | 2018-06-23 19:28 | NUR ---
report received repoert from offgoing shift
[2018-06-24 00:23] VITALS: BP 138/64
[2018-06-24] MEDS: DUONEB 0.5 MG-3 MG/3 ML SOLN IH SCH ×3 (01:33→08:16)
[2018-06-24 04:30] VITALS: BP 153/86
[2018-06-24 05:07] LABS: BASOPHIL % 0.1 % (0.0-0.2); HEMOGLOBIN 13.2 g/dL (12.0-15.0); LYMPHOCYTES # 0.7 10^3/uL (1.0-4.8); LYMPHOCYTES % 4.6 % (24.0-44.0); MEAN CELL HGB 29.6 pg (26-34); MEAN CELL HGB CONCENTRATION 32.1 g/dL (33-37); MEAN CORP VOLUME 92.2 fL (78-100); MEAN PLATELET VOLUME 9.8 fL (7.8-11.0); MONOCYTES # 0.6 10^3/uL (0.3-0.8); MONOCYTES % 3.7 % (5.0-12.0); NEUTROPHIL # 13.8 10^3/uL (1.8-7.7); NEUTROPHILS % 91.2 % (41.0-85.0); RED CELL DISTRIBUTION WIDTH 14.6 % (11.5-14.5); WHITE BLOOD CELL 15.2 10^3/uL (4.5-11.0)
[2018-06-24 07:09] LABS: BAND NEUTROPHILS 13 % (2-6); LYMPHOCYTE 4 % (25-36); SEGMENTED NEUTROPHILS 79 % (31-76)
[2018-06-24] MEDS: PULMICORT IH SCH (08:15)
[2018-06-24 08:49] VITALS: BP 148/72
[2018-06-24] MEDS: CALAN PO SCH (08:51)
[2018-06-24] MEDS: SOLU-MEDROL IV SCH (08:51)
[2018-06-24] MEDS: PROTONIX PO SCH (08:51)
[2018-06-24] MEDS: TAMIFLU PO SCH (08:51)
--- NOTE | 2018-06-24 09:28 | NUR ---
DR AGUILERA AT THE BEDSIDE TALKING WITH Pt.
--- NOTE | 2018-06-24 10:02 | PRM.DC ---
Discharge Summary Date of Discharge: Jun 24, 2018 Time of Request to Discharge: 09:52 Reason for Visit: Dyspnea Hospital Course Patient admitted with Influenza and Asthma exacerbation. Patient treated with O2 support, IV Steroids, and scheduled Nebs. Patient feels much better and is ready to go home. Patient sees Medical Review Specialist for management of Asthma. She will f/ u within one week. Patient states that bilingual inside sales representative recommends Prednisone 10mg PO daily at home after exacerbation and she has medications at home already. I will not need to d/c on burst or taper. Patient can follow recs of Medical Review Specialist upon d/c. Will give course of Tamiflu to complete and discussed with patient. Patient History: Patient reports no known family medical history. General: Alert, Oriented X3, Cooperative, No acute distress HEENT: Atraumatic, PERRLA, EOMI, Mucous membr. moist/pink Neck: Supple, No JVD Lungs: Normal air movement, Other (mild diffuse wheezing) Heart: Regular rate, Normal S1, Normal S2, No murmurs Abdomen: Normal bowel sounds, Soft, No tenderness Extremities: No edema, Normal pulses, No tenderness/swelling Skin: No rashes, No breakdown, No significant lesion Neuro: Normal gait, Normal speech, Strength at 5/5 X4 ext, Normal tone, Sensation intact, Cranial nerves 3-12 NL Psych/Mental Status: Mental status NL, Mood NL Scheduled Albuterol Sulfate (Albuterol Sulfate), 2.5 MG IH DAILY, (Reported) Budesonide (Pulmicort), 0.5 MG IH DAILY, (Reported) Fluticasone/Vilanterol (Breo Ellipta 100-25 Mcg INH), 1 EACH IH DAILY24, ( Reported) Ipratropium/Albuterol Sulfate (Combivent Respimat Inhal [place]), Unknown Dose IH DAILY, (Reported) Verapamil Hcl (Verapamil Er), 180 MG PO DAILY, (Reported) Scheduled PRN Diazepam (Valium), 1 TAB PO BID PRN for ANXIETY, (Reported) Ipratropium/Albuterol Sulfate (Combivent Respimat Inhal [place]), Unknown Dose IH RTQID PRN for SHORTNESS OF BREATH, (Reported) Discontinued Medications Ascorbic Acid (Vitamin C), Unknown Dose PO DAILY, (Reported) Discontinued Reason: No Longer Taking Bupropion Hcl (Wellbutrin), 300 MG PO DAILY, (Reported) Discontinued Reason: No Longer Taking Cyanocobalamin (Vitamin B-12) (Vitamin B-12), Unknown Dose PO DAILY, (Reported) Discontinued Reason: No Longer Taking Diazepam (Valium), 5 MG PO HS, (Reported) Discontinued Reason: No Longer Taking Ped Multivit #22/Vit D3/Vit K (Multivitamins Chewable Tablet), Unknown Dose PO DAILY, (Reported) Discontinued Reason: No Longer Taking Suvorexant (Belsomra), 10 MG PO DAILY, (Reported) Discontinued Reason: No Longer Taking Tramadol Hcl (Tramadol Hcl), 50 MG PO BID PRN for PAIN, (Reported) Discontinued Reason: No Longer Taking Sepsis Evaluation @ Discharge Vital Sign - Last 24 Hours 06/22/18 06/22/18 06/22/18 06/22/18 14:02 14:04 14:10 16:29 Temp 97.5 97.5 Pulse 95 103 86 Resp 20 20 20 17 B/P (MAP) 124/61 (82) Pulse Ox 93 93 95 91 O2 Delivery Room Air 06/22/18 06/22/18 06/22/18 06/22/18 16:37 16:43 20:09 20:13 Temp 97.5 97.5 Pulse 87 96 88 88 Resp 20 24 20 20 B/P (MAP) 139/63 (88) Pulse Ox 95 96 92 92 O2 Delivery Room Air Room Air FiO2 21 06/22/18 06/22/18 06/22/18 06/23/18 20:13 20:13 20:17 00:29 Temp 97.8 97.8 Pulse 88 88 88 Resp 20 20 19 B/P (MAP) 142/76 (98) Pulse Ox 92 92 92 O2 Delivery Room Air Room Air 06/23/18 06/23/18 06/23/18 06/23/18 00:49 00:51 04:26 04:29 Pulse 81 88 83 77 Resp 20 18 16 16 Pulse Ox 94 94 94 97 06/23/18 06/23/18 06/23/18 06/23/18 04:39 08:20 08:28 10:34 Temp 97.6 97.5 97.6 97.5 Pulse 86 86 88 90 Resp 20 16 16 20 B/P (MAP) 144/73 (96) 131/58 (82) Pulse Ox 90 96 96 92 O2 Delivery Room Air Room Air 06/23/18 06/23/18 10:36 10:44 Pulse 90 B/P (MAP) 131/58 O2 Delivery Room Air Intake and Output 06/22/18 06/22/18 06/23/18 15:01 23:01 07:01 Intake Total 240 ml 240 ml 480 ml Output Total 900 ml 650 ml Balance 240 ml -660 ml -170 ml Laboratory Tests Test 06/22/18 06:25 06/22/18 06:45 06/22/18 07:43 06/23/18 05:05 White Blood Count 8.3 10^3/uL 11.1 10^3/uL Red Blood Count 4.51 10^6/uL 4.59 10^6/uL Hemoglobin 13.4 g/dL 13.6 g/dL Hematocrit 41.1 % 42.2 % Mean Corpuscular Volume 91.1 fL 91.9 fL Mean Corpuscular Hemoglobin 29.7 pg 29.6 pg Mean Corpuscular Hemoglobin Concent 32.6 g/dL 32.2 g/dL Red Cell Distribution Width 14.9 % 14.5 % Platelet Count 217 10^3/uL 201 10^3/uL Mean Platelet Volume 9.0 fL 9.2 fL Prothrombin Time 10.3 SEC Prothrombin Time INR (Non-Therap) 1.0 Activated Partial Thromboplast Time 25.1 SEC Sodium Level 138 mmol/L 140 mmol/L Potassium Level 3.5 mmol/L 3.5 mmol/L Chloride Level 100.0 mmol/L 105.0 mmol/L Carbon Dioxide Level 25.2 mmol/L 21.9 mmol/L Anion Gap 16.3 16.6 Blood Urea Nitrogen 17 mg/dL 13 mg/dL Creatinine 0.98 mg/dL 0.97 mg/dL Estimated GFR () 68.7 69.5 BUN/Creatinine Ratio 17.0 13.0 Glucose Level 105 mg/dL 164 mg/dL Calcium Level 8.7 mg/dL 9.1 mg/dL Total Bilirubin 0.7 mg/dL 0.4 mg/dL Aspartate Amino Transf (AST/SGOT) 17 U/L 14 U/L Alanine Aminotransferase (ALT/SGPT) 19 U/L 18 U/L Alkaline Phosphatase 107 U/L 101 U/L Creatine Kinase MB < 0.5 ng/mL Troponin I < 0.02 ng/mL Pro-B-Type Natriuretic Peptide 710 pg/mL Total Protein 7.7 g/dL 7.8 g/dL Albumin 3.6 g/dL 3.3 g/dL Globulin 4.1 4.5 Influenza Type A Antigen POSITIVE Influenza B Immunofluorescence NEGATIVE Blood Gas Sample Site LEFT BRACHIAL ARTRY Blood Gas pH 7.578 Blood Gas PCO2 30.3 mmHg Blood Gas PO2 73.9 mmHg Blood Gas HCO3 27.6 mmol/L Blood Gas Base Excess 6.2 mmol/L Tim Test N/A Arterial Blood Oxygen Saturation 96.1 % Deoxyhemoglobin 3.8 % Carboxyhemoglobin 1.1 % Methemoglobin 0.3 % Total Hemoglobin 13.8 % Total Oxygen Concentration 18.4 % Lactic Acid (Blood Gas) 1.1 MMOL/L Blood Gas Temperature 37 Oxygen Delivery Method (LAB) RA FiO2 21 % Bicarbonate 28.6 mmol/L Neutrophils (%) (Auto) 88.6 % Lymphocytes (%) (Auto) 5.7 % Monocytes (%) (Auto) 5.1 % Neutrophils # (Auto) 9.8 10^3/uL Lymphocytes # (Auto) 0.6 10^3/uL Monocytes # (Auto) 0.6 10^3/uL Absolute Immature Granulocyte (auto 0.06 10^3 u/L Eosinophils % 0.0 % Basophils % 0.1 % Basophils # 0.0 10^3/uL Eosinophil Count 0.0 10^3/uL Percent Immature Gran (Cell Imm) 0.50 % Test 06/23/18 05:28 Differential Total Cells Counted 100 #CELLS Segmented Neutrophils 89 % Band Neutrophils 1 % Lymphocytes 6 % Monocytes 4 % Platelet Estimate ADEQUATE Platelet Morphology NORMAL Blood Morphology Comment NORMAL MORPHOLOGY Current Medications Medications (Trade) Dose Ordered Sig/Fani PRN Reason Start Time Stop Time Status Last Admin Acetaminophen (Tylenol) 650 mg Q6HR PRN FEVER 06/22/18 14:00 07/22/18 13:59 Albuterol/ Ipratropium (Duoneb 0.5 Mg-3 Mg/3 ml Soln) 3 ml RTQ4 06/22/18 17:00 07/22/18 16:59 06/23/18 08:20 Budesonide (Pulmicort) 0.5 mg DAILY 06/23/18 09:00 07/23/18 08:59 06/23/18 08:20 Diazepam (Valium) 5 mg HS PRN ANXIETY 2/8/19 13:00 07/22/18 19:59 UNV Enoxaparin Sodium (Lovenox) 40 mg Q24HRS 06/22/18 14:30 07/22/18 14:29 06/22/18 15:09 Methylprednisolone Sodium Succinate (Solu-Medrol) 60 mg BID 06/23/18 21:00 07/22/18 13:59 UNV Oseltamivir Phosphate (Tamiflu) 75 mg BID 06/22/18 09:00 07/22/18 08:59 06/23/18 10:37 Pantoprazole Sodium (Protonix) 40 mg BID 06/22/18 21:00 07/23/18 08:59 06/23/18 10:37 Verapamil HCl (Calan) 180 mg DAILY 06/23/18 09:00 07/23/18 08:59 06/23/18 10:36 Course Sepsis Screening Results: Posi: NEGATIVE Sepsis Qualifier/Stage: NO DEFINITE RISK Duration or Total Time Spent w: 60 mins Vitals & review Data Vital Sign - Last 24 Hours 06/22/18 06/22/18 06/22/18 06/22/18 14:02 14:04 14:10 16:29 Temp 97.5 97.5 Pulse 95 103 86 Resp 20 20 20 17 B/P (MAP) 124/61 (82) Pulse Ox 93 93 95 91 O2 Delivery Room Air 06/22/18 06/22/18 06/22/18 06/22/18 16:37 16:43 20:09 20:13 Temp 97.5 97.5 Pulse 87 96 88 88 Resp 20 24 20 20 B/P (MAP) 139/63 (88) Pulse Ox 95 96 92 92 O2 Delivery Room Air Room Air FiO2 21 06/22/18 06/22/18 06/22/18 06/23/18 20:13 20:13 20:17 00:29 Temp 97.8 97.8 Pulse 88 88 88 Resp 20 19 B/P (MAP) 142/76 (98) Pulse Ox 92 92 92 O2 Delivery Room Air Room Air 06/23/18 06/23/18 06/23/18 06/23/18 00:49 00:51 04:26 04:29 Pulse 81 88 83 77 Resp 20 18 16 16 Pulse Ox 94 94 94 97 06/23/18 06/23/18 06/23/18 06/23/18 04:39 08:20 08:28 10:34 Temp 97.6 97.5 97.6 97.5 Pulse 86 86 88 90 Resp 20 16 16 20 B/P (MAP) 144/73 (96) 131/58 (82) Pulse Ox 90 96 96 92 O2 Delivery Room Air Room Air 06/23/18 06/23/18 10:36 10:44 Pulse 90 B/P (MAP) 131/58 O2 Delivery Room Air Intake and Output 06/22/18 06/22/18 06/23/18 15:01 23:01 07:01 Intake Total 240 ml 240 ml 480 ml Output Total 900 ml 650 ml Balance 240 ml -660 ml -170 ml Laboratory Tests Test 06/22/18 06:25 06/22/18 06:45 06/22/18 07:43 06/23/18 05:05 White Blood Count 8.3 10^3/uL 11.1 10^3/uL Red Blood Count 4.51 10^6/uL 4.59 10^6/uL Hemoglobin 13.4 g/dL 13.6 g/dL Hematocrit 41.1 % 42.2 % Mean Corpuscular Volume 91.1 fL 91.9 fL Mean Corpuscular Hemoglobin 29.7 pg 29.6 pg Mean Corpuscular Hemoglobin Concent 32.6 g/dL 32.2 g/dL Red Cell Distribution Width 14.9 % 14.5 % Platelet Count 217 10^3/uL 201 10^3/uL Mean Platelet Volume 9.0 fL 9.2 fL Prothrombin Time 10.3 SEC Prothrombin Time INR (Non-Therap) 1.0 Activated Partial Thromboplast Time 25.1 SEC Sodium Level 138 mmol/L 140 mmol/L Potassium Level 3.5 mmol/L 3.5 mmol/L Chloride Level 100.0 mmol/L 105.0 mmol/L Carbon Dioxide Level 25.2 mmol/L 21.9 mmol/L Anion Gap 16.3 16.6 Blood Urea Nitrogen 17 mg/dL 13 mg/dL Creatinine 0.98 mg/dL 0.97 mg/dL Estimated GFR () 68.7 69.5 BUN/Creatinine Ratio 17.0 13.0 Glucose Level 105 mg/dL 164 mg/dL Calcium Level 8.7 mg/dL 9.1 mg/dL Total Bilirubin 0.7 mg/dL 0.4 mg/dL Aspartate Amino Transf (AST/SGOT) 17 U/L 14 U/L Alanine Aminotransferase (ALT/SGPT) 19 U/L 18 U/L Alkaline Phosphatase 107 U/L 101 U/L Creatine Kinase MB < 0.5 ng/mL Troponin I < 0.02 ng/mL Pro-B-Type Natriuretic Peptide 710 pg/mL Total Protein 7.7 g/dL 7.8 g/dL Albumin 3.6 g/dL 3.3 g/dL Globulin 4.1 4.5 Influenza Type A Antigen POSITIVE Influenza B Immunofluorescence NEGATIVE Blood Gas Sample Site LEFT BRACHIAL ARTRY Blood Gas pH 7.578 Blood Gas PCO2 30.3 mmHg Blood Gas PO2 73.9 mmHg Blood Gas HCO3 27.6 mmol/L Blood Gas Base Excess 6.2 mmol/L Tim Test N/A Arterial Blood Oxygen Saturation 96.1 % Deoxyhemoglobin 3.8 % Carboxyhemoglobin 1.1 % Methemoglobin 0.3 % Total Hemoglobin 13.8 % Total Oxygen Concentration 18.4 % Lactic Acid (Blood Gas) 1.1 MMOL/L Blood Gas Temperature 37 Oxygen Delivery Method (LAB) RA FiO2 21 % Bicarbonate 28.6 mmol/L Neutrophils (%) (Auto) 88.6 % Lymphocytes (%) (Auto) 5.7 % Monocytes (%) (Auto) 5.1 % Neutrophils # (Auto) 9.8 10^3/uL Lymphocytes # (Auto) 0.6 10^3/uL Monocytes # (Auto) 0.6 10^3/uL Absolute Immature Granulocyte (auto 0.06 10^3 u/L Eosinophils % 0.0 % Basophils % 0.1 % Basophils # 0.0 10^3/uL Eosinophil Count 0.0 10^3/uL Percent Immature Gran (Cell Imm) 0.50 % Test 06/23/18 05:28 Differential Total Cells Counted 100 #CELLS Segmented Neutrophils 89 % Band Neutrophils 1 % Lymphocytes 6 % Monocytes 4 % Platelet Estimate ADEQUATE Platelet Morphology NORMAL Blood Morphology Comment NORMAL MORPHOLOGY Current Medications Medications (Trade) Dose Ordered Sig/Fani PRN Reason Start Time Stop Time Status Last Admin Acetaminophen (Tylenol) 650 mg Q6HR PRN FEVER 06/22/18 14:00 07/22/18 13:59 Albuterol/ Ipratropium (Duoneb 0.5 Mg-3 Mg/3 ml Soln) 3 ml RTQ4 06/22/18 17:00 07/22/18 16:59 06/23/18 08:20 Budesonide (Pulmicort) 0.5 mg DAILY 06/23/18 09:00 07/23/18 08:59 06/23/18 08:20 Diazepam (Valium) 5 mg HS PRN ANXIETY 06/23/18 13:00 07/22/18 19:59 UNV Enoxaparin Sodium (Lovenox) 40 mg Q24HRS 06/22/18 14:30 07/22/18 14:29 06/22/18 15:09 Methylprednisolone Sodium Succinate (Solu-Medrol) 60 mg BID 06/23/18 21:00 07/22/18 13:59 UNV Oseltamivir Phosphate (Tamiflu) 75 mg BID 06/22/18 09:00 07/22/18 08:59 06/23/18 10:37 Pantoprazole Sodium (Protonix) 40 mg BID 06/22/18 21:00 07/23/18 08:59 06/23/18 10:37 Verapamil HCl (Calan) 180 mg DAILY 06/23/18 09:00 07/23/18 08:59 06/23/18 10:36 Sepsis Infection Criteria Pres: Documented Infection LEVEL 1 SEPSIS INFECTION CRITE: Flu-Pneumonia LEVEL 2-SIRS (LIST ALL THAT AP: None/Not assessed O2 Sat by Pulse Oximetry: 94 Plan Discharge Date: Jun 24, 2018 Dicharge DX: Asthma exacerbation, Influenza Discharge Disposition: Stable Plan ok to d/c to home self care medications: per med rec list Diet: regular Activity: as tolerated Return to care for worsening/concerning symptoms F/U with Medical Review Specialist/PCP within 1 week GUDELIA SIMMONS MD Jun 24, 2018 10:02
[2018-06-24] MEDS ORDERED: OSEL75CA PO (10:04)
[2018-06-24 10:45] VITALS: BP 148/72
--- NOTE | 2018-06-24 10:45 | NUR ---
DISCHARGED Pt DISCHARGED TO HOME FROM THE HOSPITAL, EDUCATED ON PRESCRIPTION AND DISCHARGE PACKET, PT VERBALIZED UNDERSTANDING. IV DC, ASSISTED Pt IN WC TO MAIN EXIT.
--- NOTE | 2018-06-24 10:45 | NUR ---
DIFFERENT Pt( WRONG CHARTING) DR AGUILERA AT THE BEDSIDE TALKING WITH Pt.
== END 2018-06-24 11:24 | disposition home or self-care (01) | DRG 194 ==
LOC: ER 05:56 → MS 08:09
PROVIDERS: ADMIT Family Medicine; ATTEND Family Medicine
DX: J09.X2 Influenza due to identified novel influenza A virus with other respiratory manifestations (principal); J45.902 Unspecified asthma with status asthmaticus; I10 Essential (primary) hypertension; F41.9 Anxiety disorder, unspecified; Z96.612 Presence of left artificial shoulder joint; Z90.49 Acquired absence of other specified parts of digestive tract; Z90.710 Acquired absence of both cervix and uterus; Z88.0 Allergy status to penicillin; Z88.8 Allergy status to other drugs, medicaments and biological substances; Z88.1 Allergy status to other antibiotic agents; Z91.040 Latex allergy status; Z79.51 Long term (current) use of inhaled steroids
CPT/HCPCS: 36415; 36600; 71045; 73700; 80053; 82553; 82803; 83880; 84484; 85025; 85027; 85610; 85730; 87804; 93005; 94640; 99285; G0378; J1100; J1650; J2930; J7070; J7620; J7627; G9019

== ENCOUNTER 2018-06-28 16:12 | Inpatient (IN) | payer MEDICARE ==
[~2018-06-28] VITALS: Ht 162.6 cm; Wt 88.0 kg
[~2018-06-28 16:12] MED LIST changes: +FLUT1AER IH; +OSEL75CA PO
[2018-06-28] MEDS ORDERED: DUONEB 0.5 MG-3 MG/3 ML SOLN IH ONE (16:15)
[2018-06-28] MEDS ORDERED: DECADRON ONE (16:15)
--- NOTE | 2018-06-28 16:15 | NUR ---
ARRIVAL PATIENT TO ROOM 8, VIA WC. PATIENT WAS DISSMISSED FROM HOSPITAL ON TUESDAY WITH SIMILAR SYMPTOMS AND FLU A. PATIENT HAS NOT BEEN ABLE TO INSPIRE DEEPLY SINCE GOING HOME. PATIENT HAS DIMENISHED BREATH SOUNDS AND SLIGHT WHEEZES. PATIENT STATES SHE HAS NO PAIN AT THIS TIME. ASSESSMENT COMPLETED, CONNECTED TO ALL MONITORS, ATTENDING ANESTHESIOLOGIST IN PLACE. AWAITING MD FARIA.
[2018-06-28] MEDS ORDERED: DUONEB 0.5 MG-3 MG/3 ML SOLN IH STA (16:26)
[2018-06-28] MEDS ORDERED: SOLU-MEDROL IV STA (16:26)
[2018-06-28] MEDS ORDERED: DECADRON IH STA (16:26)
--- NOTE | 2018-06-28 16:38 | PCM.EKG ---
[facility] Test Date: 2018-06-28 Test Time: 16:36:57 Pat Name: KEVIN ENCARNACION Department: Room: Gender: F Media Relations Coordinator: HARSHAL : 1950 Requested By: AMOR ANDREW Order Number: [id number] Reading MD: Measurements Intervals [place] Rate: 105 P: 74 OR: 98 QRS: 63 QRSD: 70 T: 66 QT: 356 QTc: 470 Interpretive Statements Sinus tachycardia with short OR Otherwise normal ECG Compared to ECG 06/27/2017 13:16:56 Short OR interval now present Atrial premature complex(es) no longer present Please click the below link to view image of tracing.
[2018-06-28 16:42] VITALS: BP 168/88
[2018-06-28 16:55] LABS: BASOPHIL % 0.3 % (0.0-0.2); EOSINOPHIL % 0.3 % (0.0-5.0); HEMOGLOBIN 13.5 g/dL (12.0-15.0); LYMPHOCYTES # 0.9 10^3/uL (1.0-4.8); LYMPHOCYTES % 6.8 % (24.0-44.0); MEAN CELL HGB 29.7 pg (26-34); MEAN CELL HGB CONCENTRATION 32.6 g/dL (33-37); MEAN CORP VOLUME 91.2 fL (78-100); MEAN PLATELET VOLUME 8.8 fL (7.8-11.0); MONOCYTES # 0.7 10^3/uL (0.3-0.8); MONOCYTES % 5.5 % (5.0-12.0); NEUTROPHILS % 87.1 % (41.0-85.0); PLATELET COUNT 263 10^3/uL (150-400); RED CELL DISTRIBUTION WIDTH 14.4 % (11.5-14.5); WHITE BLOOD CELL 12.7 10^3/uL (4.5-11.0)
[2018-06-28] MEDS ORDERED: ZOFRAN IV STA (16:55)
[2018-06-28] MEDS ORDERED: ZOFRAN ONE (17:08)
[2018-06-28] MEDS ORDERED: SOLU-MEDROL ONE (17:09)
[2018-06-28 17:14] LABS: ALANINE AMINOTRANSFERASE(ML) 21 U/L (12-78); ALKALINE PHOSPHATASE 102 U/L (50-136); ASPARTATE AMINO TRANSFERASE 16 U/L (0-35); CALCIUM 8.6 mg/dL (8.4-10.5); CARBON DIOXIDE 24.9 mmol/L (20.0-32); GLUCOSE 107 mg/dL (70-110)
--- NOTE | 2018-06-28 17:36 | DIREP ---
PROCEDURE:CHEST 1 VIEW COMPARISON:[facility], CR, XRAY CHEST SINGLE VW, 06/22/2018, 05:53 AM. INDICATIONS:asthma attack FINDINGS: LUNGS/PLEURA:No significant pulmonary parenchymal abnormalities. No effusions. There is mild hyper expansion of the lungs. No pneumonia, CHF or effusions are seen. No pneumothorax or atelectasis is seen. VASCULATURE:Normal. Unremarkable pulmonary vasculature. CARDIAC:Normal. No cardiac silhouette abnormality or cardiomegaly. MEDIASTINUM:Normal. No visible mass or adenopathy. BONES:Left shoulder arthroplasty noted. [place] sutures in the right humeral head. Horizontal acromion with secondary findings of rotator cuff degeneration in the shoulders. OTHER:Negative. CONCLUSION:Mild hyper expansion of the lungs, question reactive airway disease such as asthma. No complications of pneumonia, atelectasis or pneumothorax is seen. Dictated by: Vernon Goode MD on 06/28/2018 at 05:34 PM
[2018-06-28 17:45] LABS: DIFFERENTIAL COMMENT NORMAL; LYMPHOCYTE 8 % (25-36); MONOCYTE 5 % (3-9); SEGMENTED NEUTROPHILS 87 % (31-76)
--- NOTE | 2018-06-28 17:51 | NUR ---
HOSPITALIST EDP ON PHONE WITH DR. YUEN.
[2018-06-28] MEDS ORDERED: VENTOLIN IH STA (17:58)
--- NOTE | 2018-06-28 17:58 | ER.PDOC ---
General Chief Complaint: Dyspnea/Respdistress Stated Complaint: ASTHMA ATTACK Time seen by MD: 18:00 Source: patient Exam Limitations: no limitations History of Present Illness Timing/Duration: 24 hours Severity: moderate Initiating Event: upper respiratory illness Associated Symptoms: trouble breathing, shortness of breath, hurts to breath, cough Medication Course: taking brief course Prior symptoms/Treatment: Similar symptoms previous Allergies: Coded Allergies: Penicillins (Unverified Allergy, Severe, CAN'T BREATH,SEVERE HEADACHE,RASH , 09/13/13) Latex, Natural Rubber (Verified Adverse Reaction, Severe, PULLS SKIN OFF, 02/05/14) Home Meds Active Scripts Oseltamivir Phosphate (TAMIFLU) 75 Mg Capsule, 75 MG PO BID for 3 Days, #6 CAPSULE 0 Refills Prov:GUDELIA SIMMONS MD 06/24/18 Reported Medications Diazepam (VALIUM) 5 Mg Tablet, 1 TAB PO BID PRN for ANXIETY, #60 TAB 06/22/18 Fluticasone/Vilanterol (Breo Ellipta 100-25 Mcg INH) 1 Each Aer.pow.ba, 1 EACH IH DAILY24 06/22/18 Ipratropium/Albuterol Sulfate (COMBIVENT RESPIMAT INHAL [place]) Unknown Strength Aer.w.adap, IH RTQID PRN for SHORTNESS OF BREATH 09/13/13 Ipratropium/Albuterol Sulfate (COMBIVENT RESPIMAT INHAL [place]) 4 Gm Aer.w.adap, IH DAILY 09/13/13 Albuterol Sulfate (ALBUTEROL SULFATE) 2.5 Mg/3 Ml Vial.neb, 2.5 MG IH DAILY 09/13/13 Budesonide (PULMICORT) 0.5 Mg/2 Ml Ampul.neb, 0.5 MG IH DAILY 09/13/13 Verapamil Hcl (VERAPAMIL ER) 180 Mg Cap24h.pel, 180 MG PO DAILY 09/13/13 Discontinued Reported Medications Suvorexant (Belsomra) 10 Mg Tablet, 10 MG PO DAILY, TABLET 11/29/14 Cyanocobalamin (Vitamin B-12) (VITAMIN B-12) 250 Mcg Tab.chew, PO DAILY, TAB.CHEW 09/13/13 Ped Multivit #22/Vit D3/Vit K (Multivitamins Chewable Tablet) 1 Each Tab.chew, PO DAILY, TAB.CHEW 09/13/13 Ascorbic Acid (Vitamin C) 125 Mg Tab.chew, PO DAILY, TAB.CHEW 09/13/13 Tramadol Hcl (TRAMADOL HCL) 50 Mg Tablet, 50 MG PO BID PRN for PAIN, TABLET 09/13/13 Bupropion Hcl (WELLBUTRIN) 100 Mg Tablet, 300 MG PO DAILY, TABLET 09/13/13 Diazepam (VALIUM) 5 Mg Tablet, 5 MG PO HS, TABLET 09/13/13 Past Medical History Medical History: asthma, diabetes Surgical History: cholecystectomy, hysterectomy, shoulder, other LMP (females 10-50): postmenopause Social History Smoking: non-smoker Alcohol Use: none Drug Use: none Reviewed Nursing Reviewed: Vital Signs, Abn. Noted All Other Systems: Reviewed and Negative Physical Exam General Appearance: alert, no distress EENT: eyes nml, no nystagmus, ENT nml inspection, pharynx nml Neck: nml inspection, non-tender Respiratory: no accessory muscle use, respiratory distress, decreased breath sounds, accessory muscle use, prolonged expirations, wheezing, expiration Cardiovascular: Normal Peripheral Pulses, Regular Rate, Rhythm, No Edema, No Gallop, No JVD, No Murmur Abdomen: non-tender, no organomegaly Skin: Normal Color, Warm/Dry Extremities: non-tender, nml ROM, no pedal edema NEURO/PSYCH: oriented x 3, CN's nml as tested, motor nml, sensation nml, mood/ affect nml Results/Orders Results/Orders Laboratory Tests Test 06/28/18 16:35 06/28/18 16:55 White Blood Count 12.7 10^3/uL (4.5-11.0) Red Blood Count 4.54 10^6/uL (4.00-5.20) Hemoglobin 13.5 g/dL (12.0-15.0) Hematocrit 41.4 % (36.0-46.0) Mean Corpuscular Volume 91.2 fL (78-100) Mean Corpuscular Hemoglobin 29.7 pg (26-34) Mean Corpuscular Hemoglobin Concent 32.6 g/dL (33-37) Red Cell Distribution Width 14.4 % (11.5-14.5) Platelet Count 263 10^3/uL (150-400) Mean Platelet Volume 8.8 fL (7.8-11.0) Neutrophils (%) (Auto) 87.1 % (41.0-85.0) Lymphocytes (%) (Auto) 6.8 % (24.0-44.0) Monocytes (%) (Auto) 5.5 % (5.0-12.0) Neutrophils # (Auto) 11.0 10^3/uL (1.8-7.7) Lymphocytes # (Auto) 0.9 10^3/uL (1.0-4.8) Monocytes # (Auto) 0.7 10^3/uL (0.3-0.8) Eosinophils % 0.3 % (0.0-5.0) Basophils % 0.3 % (0.0-0.2) Basophils # 0.0 10^3/uL (0.0-0.1) Eosinophil Count 0.0 10^3/uL (0.0-0.2) Prothrombin Time 9.4 SEC (9.8-11.9) Prothrombin Time INR (Non-Therap) 0.9 Activated Partial Thromboplast Time 23.0 SEC (24.67-30.72) D-Dimer 0.69 mg/L (0.19-0.49) Sodium Level 139 mmol/L (132-145) Potassium Level 3.8 mmol/L (3.6-5.2) Chloride Level 102.0 mmol/L (96-109) Carbon Dioxide Level 24.9 mmol/L (20.0-32) Anion Gap 15.9 Blood Urea Nitrogen 14 mg/dL (7-18) Creatinine 0.88 mg/dL (0.59-1.40) Estimated GFR () 77.8 (>/=60) BUN/Creatinine Ratio 15.0 Glucose Level 107 mg/dL (70-110) Calcium Level 8.6 mg/dL (8.4-10.5) Total Bilirubin 0.4 mg/dL (0.2-1.0) Aspartate Amino Transf (AST/SGOT) 16 U/L (0-35) Alanine Aminotransferase (ALT/SGPT) 21 U/L (12-78) Alkaline Phosphatase 102 U/L (50-136) Total Creatine Kinase 55 U/L (26-192) Troponin I < 0.02 ng/mL (0.00-0.05) Pro-B-Type Natriuretic Peptide 288 pg/mL (0-125) Total Protein 7.6 g/dL (6.4-8.2) Albumin 3.1 g/dL (3.4-5.0) Globulin 4.5 Helicobacter pylori Screen NEGATIVE (NEGATIVE) Differential Total Cells Counted 100 #CELLS Segmented Neutrophils 87 % (31-76) Lymphocytes 8 % (25-36) Monocytes 5 % (3-9) Differential Comment NORMAL Platelet Estimate ADEQUATE Platelet Morphology NORMAL Blood Morphology Comment NORMAL MORPHOLOGY Administered Medications Medications (Trade) Dose Ordered Sig/Fani Route PRN Reason Start Time Stop Time Status Last Admin Dose Admin Albuterol/ Ipratropium (Duoneb 0.5 Mg-3 Mg/3 ml Soln) 3 ml STAT STAT IH 06/28/18 16:26 06/28/18 16:27 DC 06/28/18 16:28 Dexamethasone Sodium Phosphate (Decadron) 4 mg STAT STAT IH 06/28/18 16:26 06/28/18 16:27 DC 06/28/18 16:28 Methylprednisolone Sodium Succinate (Solu-Medrol) 125 mg STAT STAT IV 06/28/18 16:26 06/28/18 16:27 DC 06/28/18 17:11 Ondansetron HCl (Zofran) 4 mg STAT STAT IV 06/28/18 16:55 06/28/18 16:56 DC 06/28/18 17:11 EKG/XRAY/CT/US EKG: NSR, no ST T wave changes Departure Time of Disposition: 19:00 Disposition: 09 ADMITTED INPATIENT Impression: Primary Impression: Asthma attack Condition: Improved Referrals: MARCIE COYNE MD (PCP) PRIMARY CARE PROVIDER Duration or Time Spent with Pa: 2 HRS AMOR ANDREW MD Jun 28, 2018 17:58
[2018-06-28] MEDS ORDERED: MAGNESIUM SULFATE 50 ML IV ONE (18:00)
[2018-06-28] MEDS ORDERED: EPINEPHRINE SQ PRN (18:00)
[2018-06-28] MEDS ORDERED: VENTOLIN IH ONE (18:00)
--- NOTE | 2018-06-28 18:03 | NUR ---
ALPA ANDREW SPOKE WITH DOCTOR YUEN ABOUT POSSIBLE ADMISSION, DOCTOR YUEN WITH COME TO THE ED AND SEE PATIENT.
--- NOTE | 2018-06-28 18:28 | NUR ---
ALPA DOCTOR ALPA TO ED TO SEE PATIENT.
[2018-06-28] MEDS ORDERED: ATIVAN ONE (20:11)
[2018-06-28 20:12] VITALS: BP 135/66
[2018-06-28] MEDS ORDERED: TRAM50TA PO (20:22)
[2018-06-28] MEDS ORDERED: ULTRAM PO PRN (20:30)
[2018-06-28] MEDS ORDERED: ATIVAN IV PRN (20:30)
--- NOTE | 2018-06-29 00:05 | PCM.HP ---
HISTORY & PHYSICAL HISTORY & PHYSICAL DATE OF ADMISSION: CHIEF COMPLAINT: 67 yo female recently discharged from [facility] for COPDE comes in with worsening SOB over the last 4 days. Also with much worse anxiety over this time. Admit or SOB, Asthma Exac, and SIRS. H&P # [id number] HISTORY OF PRESENT ILLNESS: ALLERGIES: CURRENT MEDICATIONS: PAST MEDICAL HISTORY: SOCIAL HISTORY: FAMILY HISTORY: REVIEW OF SYSTEMS: PHYSICAL EXAMINATION: GENERAL: VITAL SIGNS: HEENT: NECK: LUNGS: HEART: ABDOMEN: EXTREMITIES: NEUROLOGIC: LABORATORY DATA: IMPRESSION: CARE PLAN: SAUL YUEN MD Jun 29, 2018 00:05
--- NOTE | 2018-06-29 00:22 | HPH ---
ADMIT DATE: 06/28/2018 CHIEF COMPLAINT: Shortness of breath. HISTORY OF PRESENT ILLNESS: This is a 67-year-old female with a past medical history of asthma, who had recently been admitted to [facility] approximately 5 days prior with an asthma attack and states that she never fully got over this. She comes in with trouble breathing over the last 4 days, much worse over the last 24 hours. She states that it hurts to breathe and she has a lot of pain in her chest and back whenever she coughs. She states that she has a severe headache and she feels like she wants to pull her skin off because she is so short of breath. She has been very anxious during this time and has been taking Valium, which does give her some relief and helps her shortness of breath, but all in all, it is not helping her as much as she initially thought. She has been taking multiple inhalers that are fairly new for her, though they are not giving her much relief. PAST MEDICAL HISTORY: 1. Asthma. 2. Hypertension. 3. Generalized anxiety. 4. Osteoarthritis. 5. COPD. 6. Major depressive disorder. 7. Diabetes mellitus. PAST SURGICAL HISTORY: 1. Cholecystectomy. 2. Hysterectomy. 3. Shoulder surgery. MEDICATIONS: See admit medication reconciliation form. ALLERGIES: LATEX, NATURAL RUBBER, AND PENICILLINS. SOCIAL HISTORY: Alcohol, tobacco, drugs -- none. The patient lives in [place] with family. FAMILY HISTORY: Reviewed. REVIEW OF SYSTEMS: Other than the above-mentioned review of review of systems, the 11-point review of systems is negative. PHYSICAL EXAMINATION: VITAL SIGNS: Pulse 104, temperature 98.4, respirations 34, blood pressure 168/88, O2 sat 96% on room air. GENERAL: This is a very anxious appearing female who is in mild distress. She is mildly tachypneic and dyspneic. HEENT: Atraumatic, normocephalic. Sclerae are clear and anicteric. NECK: Soft, supple. Normal range of motion. No tenderness, bruits, goiter, mass or adenopathy. LUNGS: Respirations are decreased significantly at bilateral bases with profound wheezing at bilateral bases on expiration. HEART: Regular rate and rhythm without murmurs, S3 or S4. ABDOMEN: Soft, nontender, nondistended. EXTREMITIES: No edema, cyanosis or clubbing. They are warm and well perfused. NEUROLOGIC: Cranial nerves 2 through 12 are grossly intact and symmetric. SKIN: Intact. LABORATORY DATA: WBC 12.7, hemoglobin 13.5, hematocrit 41.4, platelets are 263. Sodium 139, potassium 3.8, BUN 14, creatinine 0.88. ProBNP 288. Albumin 3.1. Chest x-ray: "Mild hyperexpansion of the lungs, question reactive airway disease such as asthma. No complications of pneumonia, atelectasis or pneumothorax are seen." ASSESSMENT: 1. Shortness of breath. 2. Acute asthma exacerbation. 3. Systemic inflammatory response syndrome. 4. Generalized anxiety. 5. Hypertension. 6. Tachycardia. 7. Leukocytosis. 8. Hypoalbuminemia. PLAN: 1. This patient is admitted to [facility] where she will be followed closely with breathing treatments every 6 hours as well as Solu-Medrol given every 6 hours. She will be on azithromycin 500 mg every 24 hours. 2. She will need to be on her Valium twice daily as well as p.r.n. IV lorazepam to help with her anxiety, which should greatly help with air hunger. 3. Hopefully being on a long-acting steroid such as Symbicort or Advair will also help in terms of getting her over the exacerbation. 4. We will ask Physical Therapy to see the patient. 5. Continue with incentive spirometry. 6. Will need stress ulcer and DVT prophylaxis. Jairo Chinchilla MD DR: DEVAUGHN/ina JOB# [id number]
[2018-06-29 00:32] VITALS: BP 112/55
[2018-06-29] MEDS ORDERED: NS 250ML 250 ML IV ONE ×2 (00:55→00:58)
[2018-06-29] MEDS: VALIUM PO PRN (00:57)
[2018-06-29] MEDS: ZITHROMAX 500 MG in NS 250ML 250 ML IV SCH ×2 (00:58→23:29)
[2018-06-29] MEDS: XOPENEX IH SCH ×4 (02:38→21:00)
[2018-06-29] MEDS: ATIVAN IV PRN ×4 (04:14→23:29)
[2018-06-29 04:30] VITALS: BP 150/81
[2018-06-29 05:36] LABS: BASOPHIL % 0.1 % (0.0-0.2); EOSINOPHIL % 0.1 % (0.0-5.0); HEMOGLOBIN 12.9 g/dL (12.0-15.0); LYMPHOCYTES # 0.8 10^3/uL (1.0-4.8); MEAN CELL HGB 29.7 pg (26-34); MEAN CELL HGB CONCENTRATION 32.3 g/dL (33-37); MEAN CORP VOLUME 91.7 fL (78-100); MEAN PLATELET VOLUME 9.1 fL (7.8-11.0); MONOCYTES # 0.4 10^3/uL (0.3-0.8); MONOCYTES % 3.2 % (5.0-12.0); NEUTROPHILS % 89.6 % (41.0-85.0); PLATELET COUNT 276 10^3/uL (150-400); RED CELL DISTRIBUTION WIDTH 14.2 % (11.5-14.5); WHITE BLOOD CELL 11.2 10^3/uL (4.5-11.0)
[2018-06-29 05:49] LABS: CALCIUM 8.7 mg/dL (8.4-10.5); CARBON DIOXIDE 26.7 mmol/L (20.0-32)
[2018-06-29] MEDS: SOLU-MEDROL IV SCH ×4 (06:00→23:29)
--- NOTE | 2018-06-29 06:45 | NUR ---
REPORT REPORT RECEIVED FROM Carla BUSH LVN ASSUMED CARE OF PT
[2018-06-29 07:15] VITALS: BP 159/79
[2018-06-29] MEDS: CALAN PO SCH (08:23)
[2018-06-29] MEDS: PULMICORT IH SCH ×2 (08:39→20:46)
[2018-06-29] MEDS ORDERED: PULMICORT IH SCH (09:00)
[2018-06-29] MEDS ORDERED: TAMIFLU PO SCH (09:00)
[2018-06-29] MEDS ORDERED: VENTOLIN IH SCH (09:00)
--- NOTE | 2018-06-29 11:11 | NUR ---
DISCHARGE PLANNING CM VISITED WITH PATIENT REGARDING DISCHARGE NEEDS. PATIENT STATES SHE LIVES AT HOME WITH HER SPOUSE WHO HELPS WHEN HE IS NOT WORKING. SHE STATED SHE HAS FELT WEAKER AND LESS INDEPENDENT THE LAST COUPLE OF WEEKS DUE TO SHE HAS FELT BAD. PATIENT STATED SHE DID NOT WANT TO GO TO A SKILLED FACILITY AND PREFERS TO HAVE HOME HEALTH. [facility], [facility], AND [facility] ASKED TO COME BY AND VISIT WITH PATIENT. NOTIFIED Ceci PINO RN TO LET CASE MANAGEMENT KNOW WHEN PATIENT DECIDE WHICH COMPANY SHE PREFERS. D/C GOAL IS FOR PATIENT TO DISCHARGE HOME WITH HOME HEALTH. CM WILL CONTINUE TO FOLLOW NEEDS.
--- NOTE | 2018-06-29 12:53 | PRM.PN ---
Subjective Subjective Date: Jun 29, 2018 Time: 12:49 Subjective feeling a little better. Shortness of breath slowly improving. Less cough. Anxiety Improved with lorazepam. Patient History: Patient reports no known family medical history. VTE VTE Risk Total Score: 2 VTE Risk Score VTE Risk: Score 0-1 = Low Risk (Aggressive mobilization; early ambulation; no VTE prophylaxis required) Score 2: Moderate Risk (Intermittent/Pneumatic Compression Device OR Lovenox/Heparin/Coumadin) Score 3-4: High Risk (Intermittent/Pneumatic Compression Device AND Lovenox/Heparin/Coumadin) Score > or =5: Highest Risk (Intermittent/Pneumatic Compression Device AND Lovenox/Heparin/Coumadin) Review of Systems Constitutional: No: Fever, Chills, Sweats, Weakness, Malaise, Other Respiratory: Cough, Shortness of breath, SOB with excertion, Wheezing; No: Hemoptysis Cardiovascular: No: Chest Pain, Palpitations, Orthopnea, Paroxysmal Noc. Dyspnea, Edema, Lt Headedness, Other Gastrointestinal: Constipation; No: Nausea, Vomiting, Abdominal Pain, Diarrhea , Melena, Hematochezia, Other Genitourinary: No Dysuria, No Frequency, No Incontinence, No Hematuria, No Retention, No Other Neurological: Weakness Allergies: Coded Allergies: Penicillins (Unverified Allergy, Severe, CAN'T BREATH,SEVERE HEADACHE,RASH , 09/13/13) Latex, Natural Rubber (Verified Adverse Reaction, Severe, PULLS SKIN OFF, 02/05/14) Scheduled Albuterol Sulfate (Albuterol Sulfate), 2.5 MG IH DAILY, (Reported) Budesonide (Pulmicort), 0.5 MG IH DAILY, (Reported) Fluticasone/Vilanterol (Breo Ellipta 100-25 Mcg INH), 1 EACH IH DAILY24, ( Reported) Ipratropium/Albuterol Sulfate (Combivent Respimat Inhal [place]), Unknown Dose IH DAILY, (Reported) Oseltamivir Phosphate (Tamiflu), 75 MG PO BID Verapamil Hcl (Verapamil Er), 180 MG PO DAILY, (Reported) Scheduled PRN Diazepam (Valium), 1 TAB PO BID PRN for ANXIETY, (Reported) Ipratropium/Albuterol Sulfate (Combivent Respimat Inhal [place]), Unknown Dose IH RTQID PRN for SHORTNESS OF BREATH, (Reported) Tramadol Hcl (Tramadol Hcl), 50 MG PO Q4 PRN for PAIN, (Reported) Discontinued Medications Ascorbic Acid (Vitamin C), Unknown Dose PO DAILY, (Reported) Discontinued Reason: No Longer Taking Bupropion Hcl (Wellbutrin), 300 MG PO DAILY, (Reported) Discontinued Reason: No Longer Taking Cyanocobalamin (Vitamin B-12) (Vitamin B-12), Unknown Dose PO DAILY, (Reported) Discontinued Reason: No Longer Taking Diazepam (Valium), 5 MG PO HS, (Reported) Discontinued Reason: No Longer Taking Ped Multivit #22/Vit D3/Vit K (Multivitamins Chewable Tablet), Unknown Dose PO DAILY, (Reported) Discontinued Reason: No Longer Taking Suvorexant (Belsomra), 10 MG PO DAILY, (Reported) Discontinued Reason: No Longer Taking Tramadol Hcl (Tramadol Hcl), 50 MG PO BID PRN for PAIN, (Reported) Discontinued Reason: No Longer Taking Objective Vitals and I/O Vital Sign - Last 24 Hours 06/28/18 06/28/18 06/28/18 06/28/18 16:21 16:21 16:23 16:37 Temp 98.4 98.4 Pulse 87 109 104 Resp 35 35 35 34 Pulse Ox 98 98 98 96 O2 Delivery Room Air 06/28/18 06/28/18 06/28/18 06/28/18 16:37 16:42 18:07 18:08 Temp 98.4 98.4 98.4 98.4 Pulse 104 104 90 84 Resp 34 34 25 25 B/P (MAP) 168/88 (114) Pulse Ox 96 95 95 O2 Delivery Room Air 06/28/18 06/28/18 06/29/18 06/29/18 20:12 20:41 00:23 00:32 Temp 98.1 97.7 98.1 97.7 Pulse 83 83 Resp 24 24 B/P (MAP) 135/66 (89) 112/55 (74) Pulse Ox 93 92 O2 Delivery Room Air Room Air Room Air Room Air 06/29/18 06/29/18 06/29/18 06/29/18 02:38 02:44 04:30 05:56 Temp 97.9 97.9 97.9 Pulse 76 76 75 75 Resp 20 20 22 22 B/P (MAP) 150/81 (104) Pulse Ox 91 91 92 92 O2 Delivery Room Air Room Air 06/29/18 06/29/18 06/29/18 06/29/18 07:15 08:23 08:41 08:58 Temp 98.3 98.3 Pulse 83 83 81 81 Resp 30 20 20 B/P (MAP) 159/79 (105) 159/79 Pulse Ox 92 91 91 O2 Delivery Room Air 06/29/18 11:21 O2 Delivery Room Air Intake and Output 06/28/18 06/28/18 06/29/18 14:59 22:59 06:59 Intake Total 120 ml Output Total 350 ml Balance -230 ml General: Alert, Oriented X3, Cooperative, No acute distress HEENT: Atraumatic, PERRLA, EOMI, Mucous membr. moist/pink Lungs: Other ( decreased breath sounds bilaterally and expiratory wheezing at bilateral bases.) Heart: Regular rate, Normal S1, Normal S2, No murmurs Abdomen: Normal bowel sounds, Soft, No tenderness Extremities: No edema, Normal pulses, No tenderness/swelling Neuro: Normal gait, Normal speech, Strength at 5/5 X4 ext, Normal tone, Sensation intact, Cranial nerves 3-12 NL Psych/Mental Status: Mental status NL, Mood NL All Results(Lab/Rad) Laboratory Tests Test 06/28/18 16:35 06/28/18 16:55 06/29/18 04:30 White Blood Count 12.7 10^3/uL 11.2 10^3/uL Red Blood Count 4.54 10^6/uL 4.35 10^6/uL Hemoglobin 13.5 g/dL 12.9 g/dL Hematocrit 41.4 % 39.9 % Mean Corpuscular Volume 91.2 fL 91.7 fL Mean Corpuscular Hemoglobin 29.7 pg 29.7 pg Mean Corpuscular Hemoglobin Concent 32.6 g/dL 32.3 g/dL Red Cell Distribution Width 14.4 % 14.2 % Platelet Count 263 10^3/uL 276 10^3/uL Mean Platelet Volume 8.8 fL 9.1 fL Neutrophils (%) (Auto) 87.1 % 89.6 % Lymphocytes (%) (Auto) 6.8 % 7.0 % Monocytes (%) (Auto) 5.5 % 3.2 % Neutrophils # (Auto) 11.0 10^3/uL 10.0 10^3/uL Lymphocytes # (Auto) 0.9 10^3/uL 0.8 10^3/uL Monocytes # (Auto) 0.7 10^3/uL 0.4 10^3/uL Eosinophils % 0.3 % 0.1 % Basophils % 0.3 % 0.1 % Basophils # 0.0 10^3/uL 0.0 10^3/uL Eosinophil Count 0.0 10^3/uL 0.0 10^3/uL Prothrombin Time 9.4 SEC Prothrombin Time INR (Non-Therap) 0.9 Activated Partial Thromboplast Time 23.0 SEC D-Dimer 0.69 mg/L Sodium Level 139 mmol/L 141 mmol/L Potassium Level 3.8 mmol/L 4.2 mmol/L Chloride Level 102.0 mmol/L 102.0 mmol/L Carbon Dioxide Level 24.9 mmol/L 26.7 mmol/L Anion Gap 15.9 16.5 Blood Urea Nitrogen 14 mg/dL 13 mg/dL Creatinine 0.88 mg/dL 0.88 mg/dL Estimated GFR () 77.8 77.8 BUN/Creatinine Ratio 15.0 14.0 Glucose Level 107 mg/dL 125 mg/dL Calcium Level 8.6 mg/dL 8.7 mg/dL Total Bilirubin 0.4 mg/dL 0.3 mg/dL Aspartate Amino Transf (AST/SGOT) 16 U/L 10 U/L Alanine Aminotransferase (ALT/SGPT) 21 U/L 8 U/L Alkaline Phosphatase 102 U/L 97 U/L Total Creatine Kinase 55 U/L Troponin I < 0.02 ng/mL Pro-B-Type Natriuretic Peptide 288 pg/mL Total Protein 7.6 g/dL 7.3 g/dL Albumin 3.1 g/dL 2.9 g/dL Globulin 4.5 4.4 Helicobacter pylori Screen NEGATIVE Differential Total Cells Counted 100 #CELLS Segmented Neutrophils 87 % Lymphocytes 8 % Monocytes 5 % Differential Comment NORMAL Platelet Estimate ADEQUATE Platelet Morphology NORMAL Blood Morphology Comment NORMAL MORPHOLOGY Hemoglobin A1c 5.9 % Free Thyroxine 1.23 ng/dL Thyroxine (T4) Pending Free Triiodothyronine (T3) Index 1.61 Total Triiodothyronine Pending Current Medications Medications (Trade) Dose Ordered Sig/Fani Route PRN Reason Start Time Stop Time Status Last Admin Dose Admin Albuterol/ Ipratropium (Duoneb 0.5 Mg-3 Mg/3 ml Soln) 3 ml STK-MED ONCE IH 06/28/18 16:15 06/28/18 16:17 DC Dexamethasone Sodium Phosphate (Decadron) 4 mg STK-MED ONCE .ROUTE 06/28/18 16:15 06/28/18 16:17 DC Albuterol/ Ipratropium (Duoneb 0.5 Mg-3 Mg/3 ml Soln) 3 ml STAT STAT IH 06/28/18 16:26 06/28/18 16:27 DC 06/28/18 16:28 Dexamethasone Sodium Phosphate (Decadron) 4 mg STAT STAT IH 06/28/18 16:26 06/28/18 16:27 DC 06/28/18 16:28 Methylprednisolone Sodium Succinate (Solu-Medrol) 125 mg STAT STAT IV 06/28/18 16:26 06/28/18 16:27 DC 06/28/18 17:11 Ondansetron HCl (Zofran) 4 mg STAT STAT IV 06/28/18 16:55 06/28/18 16:56 DC 06/28/18 17:11 Ondansetron HCl (Zofran) 4 mg STK-MED ONCE .ROUTE 06/28/18 17:08 06/28/18 17:10 DC Methylprednisolone Sodium Succinate (Solu-Medrol) 125 mg STK-MED ONCE .ROUTE 06/28/18 17:09 06/28/18 17:11 DC Magnesium Sulfate 50 ml @ 50 mls/hr OT ONCE IV 06/28/18 18:00 06/28/18 21:06 DC 06/28/18 18:15 Albuterol Sulfate (Ventolin) 5 mg STAT STAT IH 06/28/18 17:58 06/28/18 18:00 DC 06/28/18 18:07 Epinephrine HCl (Epinephrine) 0.3 mg PRN PRN SQ SHORTNESS OF BREATH 06/28/18 18:00 07/28/18 17:59 Albuterol Sulfate (Ventolin) 2.5 mg STK-MED ONCE IH 06/28/18 18:00 06/28/18 18:02 DC Lorazepam (Ativan) 2 mg STK-MED ONCE .ROUTE 06/28/18 20:11 06/28/18 20:13 DC Tramadol HCl (Ultram) 50 mg Q4 PRN PO PAIN 06/28/18 20:30 07/28/18 20:29 Verapamil HCl (Calan) 180 mg DAILY PO 06/29/18 09:00 07/29/18 08:59 06/29/18 08:23 Lorazepam (Ativan) 0.5 mg Q4HR PRN IV AGITATION 06/28/18 20:30 06/29/18 00:39 DC 06/28/18 20:38 Albuterol Sulfate (Ventolin) 2.5 mg DAILY IH 06/29/18 09:00 06/29/18 09:00 DC Budesonide (Pulmicort) 0.5 mg DAILY IH 06/29/18 09:00 07/29/18 08:59 06/29/18 08:39 Diazepam (Valium) 5 mg BID PRN PO ANXIETY 06/29/18 00:00 07/29/18 00:00 06/29/18 00:57 Oseltamivir Phosphate (Tamiflu) 75 mg BID PO 06/29/18 09:00 07/29/18 08:59 Budesonide (Pulmicort) 0.5 mg RTDAILY IH 06/29/18 09:00 07/29/18 08:59 Cancel Levalbuterol HCl (Xopenex) 1.25 mg RTQ6 IH 06/29/18 03:00 07/29/18 02:59 06/29/18 08:39 Azithromycin 500 mg/Sodium Chloride 250 ml @ 175 mls/hr Q24HRS IV 06/29/18 00:30 07/29/18 00:29 06/29/18 00:58 Methylprednisolone Sodium Succinate (Solu-Medrol) 60 mg Q6 IV 06/29/18 06:00 07/29/18 05:59 06/29/18 06:00 Lorazepam (Ativan) 1 mg Q4HR PRN IV AGITATION 06/29/18 00:30 07/29/18 00:29 06/29/18 09:39 Sodium Chloride 250 ml @ ud STK-MED ONCE IV 06/29/18 00:55 06/29/18 00:57 DC Sodium Chloride 250 ml @ ud STK-MED ONCE IV 06/29/18 00:58 2/14/19 00:59 DC Course Sepsis Screening Results: Posi: NEGATIVE Sepsis Qualifier/Stage: NO DEFINITE RISK Duration or Total Time Spent w: 2 HRS Vitals & review Data Vital Sign - Last 24 Hours 06/28/18 06/28/18 06/28/18 06/28/18 16:21 16:21 16:23 16:37 Temp 98.4 98.4 Pulse 87 109 104 Resp 35 35 35 34 Pulse Ox 98 98 98 96 O2 Delivery Room Air 06/28/18 06/28/18 06/28/18 06/28/18 16:37 16:42 18:07 18:08 Temp 98.4 98.4 98.4 98.4 Pulse 104 104 90 84 Resp 34 34 25 25 B/P (MAP) 168/88 (114) Pulse Ox 96 95 95 O2 Delivery Room Air 06/28/18 06/28/18 06/29/18 06/29/18 20:12 20:41 00:23 00:32 Temp 98.1 97.7 98.1 97.7 Pulse 83 83 Resp 24 24 B/P (MAP) 135/66 (89) 112/55 (74) Pulse Ox 93 92 O2 Delivery Room Air Room Air Room Air Room Air 06/29/18 06/29/18 06/29/18 06/29/18 02:38 02:44 04:30 05:56 Temp 97.9 97.9 97.9 Pulse 76 76 75 75 Resp 20 20 22 22 B/P (MAP) 150/81 (104) Pulse Ox 91 91 92 92 O2 Delivery Room Air Room Air 06/29/18 06/29/18 06/29/18 06/29/18 07:15 08:23 08:41 08:58 Temp 98.3 98.3 Pulse 83 83 81 81 Resp 30 20 20 B/P (MAP) 159/79 (105) 159/79 Pulse Ox 92 91 91 O2 Delivery Room Air 06/29/18 11:21 O2 Delivery Room Air Intake and Output 06/28/18 06/28/18 06/29/18 14:59 22:59 06:59 Intake Total 120 ml Output Total 350 ml Balance -230 ml Laboratory Tests Test 06/28/18 16:35 06/28/18 16:55 06/29/18 04:30 White Blood Count 12.7 10^3/uL 11.2 10^3/uL Red Blood Count 4.54 10^6/uL 4.35 10^6/uL Hemoglobin 13.5 g/dL 12.9 g/dL Hematocrit 41.4 % 39.9 % Mean Corpuscular Volume 91.2 fL 91.7 fL Mean Corpuscular Hemoglobin 29.7 pg 29.7 pg Mean Corpuscular Hemoglobin Concent 32.6 g/dL 32.3 g/dL Red Cell Distribution Width 14.4 % 14.2 % Platelet Count 263 10^3/uL 276 10^3/uL Mean Platelet Volume 8.8 fL 9.1 fL Neutrophils (%) (Auto) 87.1 % 89.6 % Lymphocytes (%) (Auto) 6.8 % 7.0 % Monocytes (%) (Auto) 5.5 % 3.2 % Neutrophils # (Auto) 11.0 10^3/uL 10.0 10^3/uL Lymphocytes # (Auto) 0.9 10^3/uL 0.8 10^3/uL Monocytes # (Auto) 0.7 10^3/uL 0.4 10^3/uL Eosinophils % 0.3 % 0.1 % Basophils % 0.3 % 0.1 % Basophils # 0.0 10^3/uL 0.0 10^3/uL Eosinophil Count 0.0 10^3/uL 0.0 10^3/uL Prothrombin Time 9.4 SEC Prothrombin Time INR (Non-Therap) 0.9 Activated Partial Thromboplast Time 23.0 SEC D-Dimer 0.69 mg/L Sodium Level 139 mmol/L 141 mmol/L Potassium Level 3.8 mmol/L 4.2 mmol/L Chloride Level 102.0 mmol/L 102.0 mmol/L Carbon Dioxide Level 24.9 mmol/L 26.7 mmol/L Anion Gap 15.9 16.5 Blood Urea Nitrogen 14 mg/dL 13 mg/dL Creatinine 0.88 mg/dL 0.88 mg/dL Estimated GFR () 77.8 77.8 BUN/Creatinine Ratio 15.0 14.0 Glucose Level 107 mg/dL 125 mg/dL Calcium Level 8.6 mg/dL 8.7 mg/dL Total Bilirubin 0.4 mg/dL 0.3 mg/dL Aspartate Amino Transf (AST/SGOT) 16 U/L 10 U/L Alanine Aminotransferase (ALT/SGPT) 21 U/L 8 U/L Alkaline Phosphatase 102 U/L 97 U/L Total Creatine Kinase 55 U/L Troponin I < 0.02 ng/mL Pro-B-Type Natriuretic Peptide 288 pg/mL Total Protein 7.6 g/dL 7.3 g/dL Albumin 3.1 g/dL 2.9 g/dL Globulin 4.5 4.4 Helicobacter pylori Screen NEGATIVE Differential Total Cells Counted 100 #CELLS Segmented Neutrophils 87 % Lymphocytes 8 % Monocytes 5 % Differential Comment NORMAL Platelet Estimate ADEQUATE Platelet Morphology NORMAL Blood Morphology Comment NORMAL MORPHOLOGY Hemoglobin A1c 5.9 % Free Thyroxine 1.23 ng/dL Free Triiodothyronine (T3) Index 1.61 Current Medications Medications (Trade) Dose Ordered Sig/Fani PRN Reason Start Time Stop Time Status Last Admin Azithromycin 500 mg/Sodium Chloride 250 ml @ 175 mls/hr Q24HRS 06/29/18 00:30 07/29/18 00:29 06/29/18 00:58 Budesonide (Pulmicort) 0.5 mg DAILY 06/29/18 09:00 07/29/18 08:59 06/29/18 08:39 Diazepam (Valium) 5 mg BID PRN ANXIETY 06/29/18 00:00 07/29/18 00:00 06/29/18 00:57 Epinephrine HCl (Epinephrine) 0.3 mg PRN PRN SHORTNESS OF BREATH 06/28/18 18:00 07/28/18 17:59 Levalbuterol HCl (Xopenex) 1.25 mg RTQ6 06/29/18 03:00 07/29/18 02:59 06/29/18 08:39 Lorazepam (Ativan) 1 mg Q4HR PRN AGITATION 06/29/18 00:30 07/29/18 00:29 06/29/18 09:39 Methylprednisolone Sodium Succinate (Solu-Medrol) 60 mg Q6 06/29/18 06:00 07/29/18 05:59 06/29/18 06:00 Oseltamivir Phosphate (Tamiflu) 75 mg BID 06/29/18 09:00 07/29/18 08:59 Tramadol HCl (Ultram) 50 mg Q4 PRN PAIN 06/28/18 20:30 07/28/18 20:29 Verapamil HCl (Calan) 180 mg DAILY 06/29/18 09:00 07/29/18 08:59 06/29/18 08:23 Sepsis Infection Criteria Pres: None LEVEL 1 SEPSIS INFECTION CRITE: Flu-Pneumonia LEVEL 2-SIRS (LIST ALL THAT AP: RR>20/min, WBC>[id number] Cardiovascular Evidence: Not Assessed or None Hematologic Evidence: None/Not assessed Hepatic Evidence: None/Not assessed Metabolic Evidence: None/Not assessed Neurological Evidence: None/Not assessed Respiratory Evidence: None/Not assessed Renal Evidence: None/Not assessed O2 Sat by Pulse Oximetry: 91 Assessment/Plan Assessment/Plan Problems: (1) Shortness of breath Assessment & Plan: Secondary to asthma exacerbation. Continue corticosteroids and antibiotics. Consider morphine for air hunger. ICD Code: R06.02 - Shortness of breath SNOMED: 960414818 (2) Hypertensive urgency Status: Acute Assessment & Plan: Continue same home blood pressure medications. ICD Code: I10 - Essential (primary) hypertension SNOMED: 515295378 (3) Asthma with acute exacerbation Status: Acute Assessment & Plan: Maintain pathologic process for hospitalization. Continue corticosteroids and nebulizer treatments. ICD Code: J45.901 - Unspecified asthma with (acute) exacerbation SNOMED: 377186965 (4) Anxiety Status: Acute Assessment & Plan: Patient has severe anxiety and may do better with a single medication at home. For now, continue IV lorazepam. ICD Code: F41.1 - Generalized anxiety disorder SNOMED: [id number] SAUL YUEN MD Jun 29, 2018 12:53
[2018-06-29 12:55] VITALS: BP 120/59
[2018-06-29] MEDS: LIDOCAINE VISCOUS MM PRN ×3 (13:02→23:28)
[2018-06-29 16:19] VITALS: BP 134/87
--- NOTE | 2018-06-29 18:51 | NUR ---
REPORT RECEIVED REPORT FROM OFFGOING SHIFT
[2018-06-29 20:27] VITALS: BP 133/64
[2018-06-30 00:19] VITALS: BP 142/79
[2018-06-30] MEDS: XOPENEX IH SCH ×3 (02:36→21:03)
[2018-06-30] MEDS: SOLU-MEDROL IV SCH ×3 (05:19→18:00)
[2018-06-30] MEDS: ATIVAN IV PRN ×3 (05:19→20:30)
[2018-06-30 05:33] VITALS: BP 140/66
[2018-06-30 06:02] LABS: CALCIUM 8.8 mg/dL (8.4-10.5); CARBON DIOXIDE 27.2 mmol/L (20.0-32)
--- NOTE | 2018-06-30 06:47 | NUR ---
report report given to o/c shift
--- NOTE | 2018-06-30 07:46 | NUR ---
REPORT RECEIVED REPORT, ASSUMED CARE FOR PATIENT AT THIS TIME.
--- NOTE | 2018-06-30 08:01 | NUR ---
DISCHARGE PLANNNING CM FOLLOWED UP WITH PATIENT AND SHE DECIDED TO GO WITH [facility]. D/C GOAL IS FOR PATIENT TO DISCHARGE HOME WITH [facility] TO FOLLOW.
[2018-06-30 08:22] LABS: THYROXINE (T4) TOTAL(REF) 7.5 ug/dL (4.5-12.0)
[2018-06-30 08:38] VITALS: BP 118/68
[2018-06-30] MEDS ORDERED: PULMICORT IH ONE (09:40)
[2018-06-30] MEDS: LIDOCAINE VISCOUS MM PRN (09:59)
[2018-06-30] MEDS: CALAN PO SCH (10:00)
[2018-06-30] MEDS: PULMICORT IH SCH ×2 (10:52→21:03)
[2018-06-30 12:30] VITALS: BP 126/68
[2018-06-30] MEDS: VALIUM PO PRN ×2 (15:09→21:26)
--- NOTE | 2018-06-30 18:09 | PRM.PN ---
Subjective Subjective Date: Jun 30, 2018 Time: 18:06 Subjective Much improved. This is the best she has felt even being at the house. Still wheezing quite a bit but ambulating in the halls without severe shortness of breath now. Patient History: Patient reports no known family medical history. VTE VTE Risk Total Score: 2 VTE Risk Score VTE Risk: Score 0-1 = Low Risk (Aggressive mobilization; early ambulation; no VTE prophylaxis required) Score 2: Moderate Risk (Intermittent/Pneumatic Compression Device OR Lovenox/Heparin/Coumadin) Score 3-4: High Risk (Intermittent/Pneumatic Compression Device AND Lovenox/Heparin/Coumadin) Score > or =5: Highest Risk (Intermittent/Pneumatic Compression Device AND Lovenox/Heparin/Coumadin) Review of Systems Constitutional: No: Fever, Chills, Sweats, Weakness, Malaise, Other Respiratory: Cough, Shortness of breath, SOB with excertion, Wheezing; No: Hemoptysis Cardiovascular: No: Chest Pain, Palpitations, Orthopnea, Paroxysmal Noc. Dyspnea, Edema, Lt Headedness, Other Gastrointestinal: Constipation; No: Nausea, Vomiting, Abdominal Pain, Diarrhea , Melena, Hematochezia, Other Genitourinary: No Dysuria, No Frequency, No Incontinence, No Hematuria, No Retention, No Other Neurological: Weakness Allergies: Coded Allergies: Penicillins (Unverified Allergy, Severe, CAN'T BREATH,SEVERE HEADACHE,RASH , 09/13/13) Latex, Natural Rubber (Verified Adverse Reaction, Severe, PULLS SKIN OFF, 02/05/14) Scheduled Albuterol Sulfate (Albuterol Sulfate), 2.5 MG IH DAILY, (Reported) Budesonide (Pulmicort), 0.5 MG IH DAILY, (Reported) Fluticasone/Vilanterol (Breo Ellipta 100-25 Mcg INH), 1 EACH IH DAILY24, ( Reported) Ipratropium/Albuterol Sulfate (Combivent Respimat Inhal Inavale), Unknown Dose IH DAILY, (Reported) Oseltamivir Phosphate (Tamiflu), 75 MG PO BID Verapamil Hcl (Verapamil Er), 180 MG PO DAILY, (Reported) Scheduled PRN Diazepam (Valium), 1 TAB PO BID PRN for ANXIETY, (Reported) Ipratropium/Albuterol Sulfate (Combivent Respimat Inhal Inavale), Unknown Dose RTQID PRN for SHORTNESS OF BREATH, (Reported) Tramadol Hcl (Tramadol Hcl), 50 MG PO Q4 PRN for PAIN, (Reported) Objective Vitals and I/O Vital Sign - Last 24 Hours 06/28/18 06/28/18 06/28/18 06/28/18 16:21 16:21 16:23 16:37 Temp 98.4 98.4 Pulse 87 109 104 Resp 35 35 35 34 Pulse Ox 98 98 98 96 O2 Delivery Room Air 06/28/18 06/28/18 06/28/18 06/28/18 16:37 16:42 18:07 18:08 Temp 98.4 98.4 98.4 98.4 Pulse 104 104 90 84 Resp 34 34 25 25 B/P (MAP) 168/88 (114) Pulse Ox 96 95 95 O2 Delivery Room Air 06/28/18 06/28/18 06/29/18 06/29/18 20:12 20:41 00:23 00:32 Temp 98.1 97.7 98.1 97.7 Pulse 83 83 Resp 24 24 B/P (MAP) 135/66 (89) 112/55 (74) Pulse Ox 93 92 O2 Delivery Room Air Room Air Room Air Room Air 06/29/18 06/29/18 06/29/18 06/29/18 02:38 02:44 04:30 05:56 Temp 97.9 97.9 97.9 Pulse 76 76 75 75 Resp 20 20 22 22 B/P (MAP) 150/81 (104) Pulse Ox 91 91 92 92 O2 Delivery Room Air Room Air 06/29/18 06/29/18 06/29/18 06/29/18 07:15 08:23 08:41 08:58 Temp 98.3 98.3 Pulse 83 83 81 81 Resp 30 20 20 B/P (MAP) 159/79 (105) 159/79 Pulse Ox 92 91 91 O2 Delivery Room Air 06/29/18 11:21 O2 Delivery Room Air Intake and Output 06/28/18 06/28/18 06/29/18 14:59 22:59 06:59 Intake Total 120 ml Output Total 350 ml Balance -230 ml General: Alert, Oriented X3, Cooperative, No acute distress HEENT: Atraumatic, PERRLA, EOMI, Mucous membr. moist/pink Lungs: Other ( decreased breath sounds bilaterally and expiratory wheezing at bilateral bases.) Heart: Regular rate, Normal S1, Normal S2, No murmurs Abdomen: Normal bowel sounds, Soft, No tenderness Extremities: No edema, Normal pulses, No tenderness/swelling Neuro: Normal gait, Normal speech, Strength at 5/5 X4 ext, Normal tone, Sensation intact, Cranial nerves 3-12 NL Psych/Mental Status: Mental status NL, Mood NL All Results(Lab/Rad) Laboratory Tests Test 06/28/18 16:35 06/28/18 16:55 06/29/18 04:30 White Blood Count 12.7 10^3/uL 11.2 10^3/uL Red Blood Count 4.54 10^6/uL 4.35 10^6/uL Hemoglobin 13.5 g/dL 12.9 g/dL Hematocrit 41.4 % 39.9 % Mean Corpuscular Volume 91.2 fL 91.7 fL Mean Corpuscular Hemoglobin 29.7 pg 29.7 pg Mean Corpuscular Hemoglobin Concent 32.6 g/dL 32.3 g/dL Red Cell Distribution Width 14.4 % 14.2 % Platelet Count 263 10^3/uL 276 10^3/uL Mean Platelet Volume 8.8 fL 9.1 fL Neutrophils (%) (Auto) 87.1 % 89.6 % Lymphocytes (%) (Auto) 6.8 % 7.0 % Monocytes (%) (Auto) 5.5 % 3.2 % Neutrophils # (Auto) 11.0 10^3/uL 10.0 10^3/uL Lymphocytes # (Auto) 0.9 10^3/uL 0.8 10^3/uL Monocytes # (Auto) 0.7 10^3/uL 0.4 10^3/uL Eosinophils % 0.3 % 0.1 % Basophils % 0.3 % 0.1 % Basophils # 0.0 10^3/uL 0.0 10^3/uL Eosinophil Count 0.0 10^3/uL 0.0 10^3/uL Prothrombin Time 9.4 SEC Prothrombin Time INR (Non-Therap) 0.9 Activated Partial Thromboplast Time 23.0 SEC D-Dimer 0.69 mg/L Sodium Level 139 mmol/L 141 mmol/L Potassium Level 3.8 mmol/L 4.2 mmol/L Chloride Level 102.0 mmol/L 102.0 mmol/L Carbon Dioxide Level 24.9 mmol/L 26.7 mmol/L Anion Gap 15.9 16.5 Blood Urea Nitrogen 14 mg/dL 13 mg/dL Creatinine 0.88 mg/dL 0.88 mg/dL Estimated GFR () 77.8 77.8 BUN/Creatinine Ratio 15.0 14.0 Glucose Level 107 mg/dL 125 mg/dL Calcium Level 8.6 mg/dL 8.7 mg/dL Total Bilirubin 0.4 mg/dL 0.3 mg/dL Aspartate Amino Transf (AST/SGOT) 16 U/L 10 U/L Alanine Aminotransferase (ALT/SGPT) 21 U/L 8 U/L Alkaline Phosphatase 102 U/L 97 U/L Total Creatine Kinase 55 U/L Troponin I < 0.02 ng/mL Pro-B-Type Natriuretic Peptide 288 pg/mL Total Protein 7.6 g/dL 7.3 g/dL Albumin 3.1 g/dL 2.9 g/dL Globulin 4.5 4.4 Helicobacter pylori Screen NEGATIVE Differential Total Cells Counted 100 #CELLS Segmented Neutrophils 87 % Lymphocytes 8 % Monocytes 5 % Differential Comment NORMAL Platelet Estimate ADEQUATE Platelet Morphology NORMAL Blood Morphology Comment NORMAL MORPHOLOGY Hemoglobin A1c 5.9 % Free Thyroxine 1.23 ng/dL Thyroxine (T4) Pending Free Triiodothyronine (T3) Index 1.61 Total Triiodothyronine Pending Current Medications Medications (Trade) Dose Ordered Sig/Fani Route PRN Reason Start Time Stop Time Status Last Admin Dose Admin Albuterol/ Ipratropium (Duoneb 0.5 Mg-3 Mg/3 ml Soln) 3 ml STK-MED ONCE IH 06/28/18 16:15 06/28/18 16:17 DC Dexamethasone Sodium Phosphate (Decadron) 4 mg STK-MED ONCE .ROUTE 06/28/18 16:15 06/28/18 16:17 DC Albuterol/ Ipratropium (Duoneb 0.5 Mg-3 Mg/3 ml Soln) 3 ml STAT STAT IH 06/28/18 16:26 06/28/18 16:27 DC 06/28/18 16:28 Dexamethasone Sodium Phosphate (Decadron) 4 mg STAT STAT IH 06/28/18 16:26 06/28/18 16:27 DC 06/28/18 16:28 Methylprednisolone Sodium Succinate (Solu-Medrol) 125 mg STAT STAT IV 06/28/18 16:26 06/28/18 16:27 DC 06/28/18 17:11 Ondansetron HCl (Zofran) 4 mg STAT STAT IV 06/28/18 16:55 06/28/18 16:56 DC 06/28/18 17:11 Ondansetron HCl (Zofran) 4 mg STK-MED ONCE .ROUTE 06/28/18 17:08 06/28/18 17:10 DC Methylprednisolone Sodium Succinate (Solu-Medrol) 125 mg STK-MED ONCE .ROUTE 06/28/18 17:09 06/28/18 17:11 DC Magnesium Sulfate 50 ml @ 50 mls/hr OT ONCE IV 06/28/18 18:00 06/28/18 21:06 DC 06/28/18 18:15 Albuterol Sulfate (Ventolin) 5 mg STAT STAT IH 06/28/18 17:58 06/28/18 18:00 DC 06/28/18 18:07 Epinephrine HCl (Epinephrine) 0.3 mg PRN PRN SQ SHORTNESS OF BREATH 06/28/18 18:00 07/28/18 17:59 Albuterol Sulfate (Ventolin) 2.5 mg STK-MED ONCE IH 06/28/18 18:00 06/28/18 18:02 DC Lorazepam (Ativan) 2 mg STK-MED ONCE .ROUTE 06/28/18 20:11 06/28/18 20:13 DC Tramadol HCl (Ultram) 50 mg Q4 PRN PO PAIN 06/28/18 20:30 07/28/18 20:29 Verapamil HCl (Calan) 180 mg DAILY PO 06/29/18 09:00 07/29/18 08:59 06/29/18 08:23 Lorazepam (Ativan) 0.5 mg Q4HR PRN IV AGITATION 06/28/18 20:30 06/29/18 00:39 DC 06/28/18 20:38 Albuterol Sulfate (Ventolin) 2.5 mg DAILY IH 06/29/18 09:00 06/29/18 09:00 DC Budesonide (Pulmicort) 0.5 mg DAILY IH 06/29/18 09:00 07/29/18 08:59 06/29/18 08:39 Diazepam (Valium) 5 mg BID PRN PO ANXIETY 06/29/18 00:00 07/29/18 00:00 06/29/18 00:57 Oseltamivir Phosphate (Tamiflu) 75 mg BID PO 06/29/18 09:00 07/29/18 08:59 Budesonide (Pulmicort) 0.5 mg RTDAILY IH 06/29/18 09:00 07/29/18 08:59 Cancel Levalbuterol HCl (Xopenex) 1.25 mg RTQ6 IH 06/29/18 03:00 07/29/18 02:59 06/29/18 08:39 Azithromycin 500 mg/Sodium Chloride 250 ml @ 175 mls/hr Q24HRS IV 06/29/18 00:30 07/29/18 00:29 06/29/18 00:58 Methylprednisolone Sodium Succinate (Solu-Medrol) 60 mg Q6 IV 06/29/18 06:00 07/29/18 05:59 06/29/18 06:00 Lorazepam (Ativan) 1 mg Q4HR PRN IV AGITATION 06/29/18 00:30 07/29/18 00:29 06/29/18 09:39 Sodium Chloride 250 ml @ ud STK-MED ONCE IV 06/29/18 00:55 06/29/18 00:57 DC Sodium Chloride 250 ml @ ud STK-MED ONCE IV 06/29/18 00:58 06/29/18 00:59 DC Course Sepsis Screening Results: Posi: NEGATIVE Sepsis Qualifier/Stage: NO DEFINITE RISK Duration or Total Time Spent w: 2 HRS Vitals & review Data Vital Sign - Last 24 Hours 06/28/18 06/28/18 06/28/18 06/28/18 16:21 16:21 16:23 16:37 Temp 98.4 98.4 Pulse 87 109 104 Resp 35 35 35 34 Pulse Ox 98 98 98 96 O2 Delivery Room Air 06/28/18 06/28/18 06/28/18 06/28/18 16:37 16:42 18:07 18:08 Temp 98.4 98.4 98.4 98.4 Pulse 104 104 90 84 Resp 34 34 25 25 B/P (MAP) 168/88 (114) Pulse Ox 96 95 95 O2 Delivery Room Air 06/28/18 06/28/18 06/29/18 06/29/18 20:12 20:41 00:23 00:32 Temp 98.1 97.7 98.1 97.7 Pulse 83 83 Resp 24 24 B/P (MAP) 135/66 (89) 112/55 (74) Pulse Ox 93 92 O2 Delivery Room Air Room Air Room Air Room Air 06/29/18 06/29/18 06/29/18 06/29/18 02:38 02:44 04:30 05:56 Temp 97.9 97.9 97.9 Pulse 76 76 75 75 Resp 20 20 22 22 B/P (MAP) 150/81 (104) Pulse Ox 91 91 92 92 O2 Delivery Room Air Room Air 06/29/18 06/29/18 06/29/18 06/29/18 07:15 08:23 08:41 08:58 Temp 98.3 98.3 Pulse 83 83 81 81 Resp 30 20 20 B/P (MAP) 159/79 (105) 159/79 Pulse Ox 92 91 91 O2 Delivery Room Air 06/29/18 11:21 O2 Delivery Room Air Intake and Output 06/28/18 06/28/18 06/29/18 14:59 22:59 06:59 Intake Total 120 ml Output Total 350 ml Balance -230 ml Laboratory Tests Test 06/28/18 16:35 06/28/18 16:55 06/29/18 04:30 White Blood Count 12.7 10^3/uL 11.2 10^3/uL Red Blood Count 4.54 10^6/uL 4.35 10^6/uL Hemoglobin 13.5 g/dL 12.9 g/dL Hematocrit 41.4 % 39.9 % Mean Corpuscular Volume 91.2 fL 91.7 fL Mean Corpuscular Hemoglobin 29.7 pg 29.7 pg Mean Corpuscular Hemoglobin Concent 32.6 g/dL 32.3 g/dL Red Cell Distribution Width 14.4 % 14.2 % Platelet Count 263 10^3/uL 276 10^3/uL Mean Platelet Volume 8.8 fL 9.1 fL Neutrophils (%) (Auto) 87.1 % 89.6 % Lymphocytes (%) (Auto) 6.8 % 7.0 % Monocytes (%) (Auto) 5.5 % 3.2 % Neutrophils # (Auto) 11.0 10^3/uL 10.0 10^3/uL Lymphocytes # (Auto) 0.9 10^3/uL 0.8 10^3/uL Monocytes # (Auto) 0.7 10^3/uL 0.4 10^3/uL Eosinophils % 0.3 % 0.1 % Basophils % 0.3 % 0.1 % Basophils # 0.0 10^3/uL 0.0 10^3/uL Eosinophil Count 0.0 10^3/uL 0.0 10^3/uL Prothrombin Time 9.4 SEC Prothrombin Time INR (Non-Therap) 0.9 Activated Partial Thromboplast Time 23.0 SEC D-Dimer 0.69 mg/L Sodium Level 139 mmol/L 141 mmol/L Potassium Level 3.8 mmol/L 4.2 mmol/L Chloride Level 102.0 mmol/L 102.0 mmol/L Carbon Dioxide Level 24.9 mmol/L 26.7 mmol/L Anion Gap 15.9 16.5 Blood Urea Nitrogen 14 mg/dL 13 mg/dL Creatinine 0.88 mg/dL 0.88 mg/dL Estimated GFR () 77.8 77.8 BUN/Creatinine Ratio 15.0 14.0 Glucose Level 107 mg/dL 125 mg/dL Calcium Level 8.6 mg/dL 8.7 mg/dL Total Bilirubin 0.4 mg/dL 0.3 mg/dL Aspartate Amino Transf (AST/SGOT) 16 U/L 10 U/L Alanine Aminotransferase (ALT/SGPT) 21 U/L 8 U/L Alkaline Phosphatase 102 U/L 97 U/L Total Creatine Kinase 55 U/L Troponin I < 0.02 ng/mL Pro-B-Type Natriuretic Peptide 288 pg/mL Total Protein 7.6 g/dL 7.3 g/dL Albumin 3.1 g/dL 2.9 g/dL Globulin 4.5 4.4 Helicobacter pylori Screen NEGATIVE Differential Total Cells Counted 100 #CELLS Segmented Neutrophils 87 % Lymphocytes 8 % Monocytes 5 % Differential Comment NORMAL Platelet Estimate ADEQUATE Platelet Morphology NORMAL Blood Morphology Comment NORMAL MORPHOLOGY Hemoglobin A1c 5.9 % Free Thyroxine 1.23 ng/dL Free Triiodothyronine (T3) Index 1.61 Current Medications Medications (Trade) Dose Ordered Sig/Fani PRN Reason Start Time Stop Time Status Last Admin Azithromycin 500 mg/Sodium Chloride 250 ml @ 175 mls/hr Q24HRS 06/29/18 00:30 07/29/18 00:29 06/29/18 00:58 Budesonide (Pulmicort) 0.5 mg DAILY 06/29/18 09:00 07/29/18 08:59 06/29/18 08:39 Diazepam (Valium) 5 mg BID PRN ANXIETY 06/29/18 00:00 07/29/18 00:00 06/29/18 00:57 Epinephrine HCl (Epinephrine) 0.3 mg PRN PRN SHORTNESS OF BREATH 06/28/18 18:00 07/28/18 17:59 Levalbuterol HCl (Xopenex) 1.25 mg RTQ6 06/29/18 03:00 07/29/18 02:59 06/29/18 08:39 Lorazepam (Ativan) 1 mg Q4HR PRN AGITATION 06/29/18 00:30 07/29/18 00:29 06/29/18 09:39 Methylprednisolone Sodium Succinate (Solu-Medrol) 60 mg Q6 06/29/18 06:00 07/29/18 05:59 06/29/18 06:00 Oseltamivir Phosphate (Tamiflu) 75 mg BID 06/29/18 09:00 07/29/18 08:59 Tramadol HCl (Ultram) 50 mg Q4 PRN PAIN 06/28/18 20:30 07/28/18 20:29 Verapamil HCl (Calan) 180 mg DAILY 06/29/18 09:00 07/29/18 08:59 06/29/18 08:23 Sepsis Infection Criteria Pres: None LEVEL 1 SEPSIS INFECTION CRITE: Cough/Shortness of Breath LEVEL 2-SIRS (LIST ALL THAT AP: RR>20/min, None/Not assessed Cardiovascular Evidence: Not Assessed or None Hematologic Evidence: None/Not assessed Hepatic Evidence: None/Not assessed Metabolic Evidence: None/Not assessed Neurological Evidence: None/Not assessed Respiratory Evidence: None/Not assessed Renal Evidence: None/Not assessed O2 Sat by Pulse Oximetry: 95 Assessment/Plan Assessment/Plan Problems: (1) Asthma with acute exacerbation Status: Acute Assessment & Plan: Much improved. This is the best I have seen her. However , secondary to the brittle nature of her asthma, I want to watch her one more night and she can be discharged in the morning. ICD Code: J45.901 - Unspecified asthma with (acute) exacerbation SNOMED: 693526352 (2) Anxiety Status: Acute Assessment & Plan: Much better controlled on current dosage of benzo Should go home on scheduled medication and I think she will do much better overall. ICD Code: F41.1 - Generalized anxiety disorder SNOMED: 36166320 (3) Shortness of breath Assessment & Plan: Secondary to #1 and #2. Much improved. ICD Code: R06.02 - Shortness of breath SNOMED: 787422093 (4) Hypertensive urgency Status: Acute Assessment & Plan: Steroids contributing. Beta agonist attributing. Continue to treat as needed ICD Code: I10 - Essential (primary) hypertension SNOMED: 062750228 SAUL YUEN MD Jun 30, 2018 18:09
[2018-06-30 18:15] VITALS: BP 140/62
--- NOTE | 2018-06-30 18:25 | NUR ---
report received report from offgoing shift
[2018-06-30 19:39] VITALS: BP 142/63
[2018-07-01] MEDS: ZITHROMAX 500 MG in NS 250ML 250 ML IV SCH (00:16)
[2018-07-01] MEDS: ATIVAN IV PRN ×2 (00:16→04:05)
[2018-07-01 00:47] VITALS: BP 109/50
[2018-07-01] MEDS: XOPENEX IH SCH ×3 (02:53→15:12)
[2018-07-01 04:20] VITALS: BP 128/68
[2018-07-01] MEDS: LIDOCAINE VISCOUS MM PRN ×2 (04:39→13:25)
[2018-07-01] MEDS: SOLU-MEDROL IV SCH ×3 (05:45→12:00)
--- NOTE | 2018-07-01 07:01 | NUR ---
REPORT RECEIVED REPORT, ASSUMED CARE FOR PATIENT AT THIS TIME.
[2018-07-01] MEDS: CALAN PO SCH (08:40)
[2018-07-01] MEDS: PULMICORT IH SCH (09:03)
[2018-07-01 10:02] VITALS: BP 126/62
--- NOTE | 2018-07-01 12:29 | NUR ---
REFUSED MED PATIENT REFUSED 1200 DOSE OF SOLU-MEDROL DUE TO IT "MAKING HER VERY ANXIOUS AND NOT LETTING HER SLEEP." EDUCATED PATIENT ON IMPORTANCE OF TAKING SCHEDULED MEDS. PATIENT VOICED UNDERSTANDING. CALL LIGHT IN REACH, BED IS LOW AND LOCKED. WILL CONTINUE TO MONITOR.
[2018-07-01 14:48] VITALS: BP 135/67
[2018-07-01] MEDS ORDERED: PRED20TA PO (15:55)
[2018-07-01 17:26] VITALS: BP 135/67
--- NOTE | 2018-07-01 17:27 | NUR ---
DISCHARGE PATIENT BEING DISCHARGED HOME AT THIS TIME IN STABLE CONDITION. PATIENT STATES THAT SHE HAS PLENTY OF HELP AT HOME WITH HER CARE. PATIENT WAS ASSISTED DOWNSTAIRS TO PRIVATE VEHICLE VIA WHEELCHAIR BY HOSPITAL PERSONNEL. RELINQUISHED CARE FOR PATIENT AT THIS TIME.
--- NOTE | 2018-07-04 12:03 | DSH ---
DATE OF DISCHARGE: 07/01/2018 ADMITTING DIAGNOSES: 1. Shortness of breath. 2. Acute asthma exacerbation. 3. Systemic inflammatory response syndrome. 4. Generalized anxiety. 5. Hypertension. DISCHARGE DIAGNOSES: 1. Asthma with acute exacerbation. 2. Anxiety. 3. Shortness of breath. 4. Hypertensive urgency. DISCHARGE MEDICATIONS: See discharge medication reconciliation form. DISCHARGE DISPOSITION: Home. FOLLOW UP: Follow up with PCP within 2 weeks. HOSPITAL COURSE: This is a 67-year-old female who was admitted on 06/28/2018 with worsening shortness of breath. White blood cell count was 12.7. Chest x-ray did not show any signs of infiltrate. Heart rate on admission was 104 with the respiratory rate of 34, qualifying her for a diagnosis of systemic inflammatory response syndrome. She was kept on empiric IV antibiotics as well as IV corticosteroids and DuoNeb treatments for asthma exacerbation. Over the course of the next 48 hours, her symptoms improved significantly. She was able to be discharged to home in stable condition on 07/01/2018 with instructions to follow up with her PCP within 2 weeks. Jairo Chinchilla MD DR: DEVAUGHN/ina JOB# [id number]
== END 2018-07-01 17:39 | disposition home health service (06) | DRG 202 ==
LOC: ER 16:12 → MS 19:11 → EDPENDDISDT 07-01 17:27 → EDPENDDISTM 07-01 17:27
PROVIDERS: ADMIT Internal Medicine; ATTEND Internal Medicine
DX: J45.901 Unspecified asthma with (acute) exacerbation (principal); R65.10 Systemic inflammatory response syndrome (SIRS) of non-infectious origin without acute organ dysfunction; I16.0 Hypertensive urgency; F41.1 Generalized anxiety disorder; E88.09 Other disorders of plasma-protein metabolism, not elsewhere classified; E11.9 Type 2 diabetes mellitus without complications; I10 Essential (primary) hypertension; J44.9 Chronic obstructive pulmonary disease, unspecified; F32.9 Major depressive disorder, single episode, unspecified; M19.90 Unspecified osteoarthritis, unspecified site; Z90.710 Acquired absence of both cervix and uterus; Z90.49 Acquired absence of other specified parts of digestive tract; Z91.040 Latex allergy status; Z88.0 Allergy status to penicillin
CPT/HCPCS: 36415; 71045; 80053; 82550; 83036; 83880; 84436; 84439; 84480; 84484; 85025; 85379; 85610; 85730; 86677; 93005; 94640; 99285; G0378; J0456; J1100; J2060; J2405; J2920; J2930; J3475; J3490; J7050; J7613; J7620; J7627; G9019

== ENCOUNTER → 2018-11-03 | Outpatient (CLI) | payer MEDICARE ==
[~2018-11-03] MED LIST changes: +PRED20TA PO
--- NOTE | 2018-11-03 16:44 | DIREP ---
PROCEDURE:CT CHEST WITH CONTRAST TECHNIQUE:Following the intravenous administration of contrast material, axial cuts were obtained through the chest. The images were viewed at lung and soft tissue settings. COMPARISON:[facility], CT, CT CHEST W/O, 06/27/2017, 03:05 PM. INDICATIONS:NEOPLASM OF UNSPECIFIED BEHAVIOR OF RESPIRATORY SYSTEM FINDINGS: LUNGS:Ground-glass in the anterior right lung apex and posterior right perihilar region. Right lower lobe 2 mm nodule image 37 series 3. In the area of the right paracentral mediastinal mass seen on the prior study there is only slight soft tissue thickening remaining image 17 series 3, correlate with clinical and treatment history. CARDIAC:Normal size heart and normal pulmonary vascularity. THORACIC AORTA:Calcification without dilatation. MEDIASTINUM/NORMAN:Borderline prominent precarinal lymph node, decreased from the prior study. CHEST WALL:Normal. LIMITED ABDOMEN:Small hiatal hernia. Normal adrenals. Gastric sleeve. Post cholecystectomy. BONES:Thoracic spondylosis. OTHER:No additional findings. CONCLUSION: 1. The right peritracheal soft tissue mass seen on the prior study measuring 4.2 cm has decreased in size significantly and almost resolved with only mild soft tissue thickening and ground-glass opacities in this area remaining. Correlate with clinical and treatment history. 2. Right lower lobe nodule measuring 2 mm. Based on Fleischner criteria [id number] in 6-12 months may be beneficial . 3. Other findings as above. Dictated by: Francis Juarez MD on 11/03/2018 at 04:34 PM
== END | disposition home or self-care (01) ==
LOC: CT 13:11
PROVIDERS: ATTEND Nurse Practitioner
DX: R91.1 Solitary pulmonary nodule (principal); R91.8 Other nonspecific abnormal finding of lung field
CPT/HCPCS: 71260; Q9965

== ENCOUNTER 2018-12-11 08:00 | Inpatient (IN) | payer MEDICARE ==
[2018-12-05 14:47] VITALS: BP 138/92
[2018-12-05 15:18] LABS: BASOPHIL % 0.5 % (0.0-0.2); EOSINOPHIL # 0.2 10^3/uL (0.0-0.2); EOSINOPHIL % 2.4 % (0.0-5.0); HEMOGLOBIN 14.2 g/dL (12.0-15.0); LYMPHOCYTES # 1.4 10^3/uL (1.0-4.8); LYMPHOCYTES % 16.6 % (24.0-44.0); MEAN CELL HGB 29.5 pg (26-34); MEAN CELL HGB CONCENTRATION 32.3 g/dL (33-37); MEAN CORP VOLUME 91.3 fL (78-100); MEAN PLATELET VOLUME 9.5 fL (7.8-11.0); MONOCYTES # 0.8 10^3/uL (0.3-0.8); MONOCYTES % 9.7 % (5.0-12.0); NEUTROPHIL # 5.9 10^3/uL (1.8-7.7); NEUTROPHILS % 70.7 % (41.0-85.0); RED CELL DISTRIBUTION WIDTH 14.6 % (11.5-14.5); WHITE BLOOD CELL 8.4 10^3/uL (4.5-11.0)
[2018-12-05 15:37] LABS: CARBON DIOXIDE 25.5 mmol/L (20.0-32)
[2018-12-05 15:38] LABS: CALCIUM 9.1 mg/dL (8.4-10.5)
[2018-12-11] VITALS (10 sets, daily range): BP systolic 134–172; BP diastolic 64–99
[~2018-12-11] VITALS: Ht 149.9 cm; Wt 78.5 kg
[2018-12-11] MEDS: LACTATED RINGERS 1,000 ML IV SCH ×2 (06:17→18:41)
[~2018-12-11 08:00] MED LIST changes: +ALLERGY SHOTS SQ; +ASCO10002 PO; +ATOR20TA PO; +BACTROBAN OINTMENT TP ONE; +BUPR150T17 PO; +CELEBREX ONE; +CELEBREX PO SCH; +DECADRON ONE; +DILAUDID ONE; +DIPRIVAN IV ONE; +DUONEB 0.5 MG-3 MG/3 ML SOLN IH ONE; +FLUT1BLS3 PO; +LIDOCAINE 2% VIAL ONE; +NAROPIN 0.2% 40 MG/20 ML VIAL ONE; +NAROPIN 0.5% 5 MG/ML VIAL ONE; +NEOSTIGMINE ONE; +NEURONTIN ONE; +NEURONTIN PO SCH; +NS 100ML 100 ML IV ONE; +NS 250ML 250 ML IV ONE; +NS 3000ML IRR IR ONE; +PANT40TA5 PO; +PRECEDEX IV ONE; +SENSORCAINE 0.5% VIAL ONE; +SODIUM CHLORIDE IR ONE; +SUBLIMAZE ONE; +TORADOL ONE; +TRANEXAMIC ACID IV ONE; +TRANSDERM-SCOP TD ONE; +TYLENOL PO ONE; +TYLENOL PO SCH; +VANCOMYCIN 1,500 MG in NS 100ML 100 ML IV ONE; +VANCOMYCIN HCL 1 GM ONE; +VERA240C2 PO; +VERSED ONE; +WATER ONE; +ZEMURON IV ONE; +ZOFRAN ONE
[2018-12-11] MEDS ORDERED: NS IV ONE (08:24)
[2018-12-11] MEDS ORDERED: VANCOMYCIN IV ONE (08:24)
[2018-12-11] MEDS ORDERED: CELEBREX PO SCH (09:00)
[2018-12-11] MEDS ORDERED: EXPAREL 266 MG/20 ML VIAL IJ ONE (10:46)
[2018-12-11] MEDS ORDERED: BENADRYL IV PRN (11:00)
[2018-12-11] MEDS ORDERED: SUBLIMAZE IV PRN (11:00)
[2018-12-11] MEDS ORDERED: CEPACOL SORE THROAT LOZENGE MM PRN (11:00)
[2018-12-11] MEDS ORDERED: VENTOLIN IH PRN ×2 (11:00)
[2018-12-11] MEDS ORDERED: PHENERGAN IV PRN (11:00)
[2018-12-11] MEDS ORDERED: ZOFRAN IV PRN (11:00)
[2018-12-11] MEDS: DILAUDID IV PRN ×2 (11:02→11:08)
[2018-12-11] MEDS: TYLENOL PO SCH ×3 (12:02→18:55)
--- NOTE | 2018-12-11 12:06 | HPH ---
ADMIT DATE: 12/11/2018 CHIEF COMPLAINT: Painful left knee. HISTORY OF PRESENT ILLNESS: The patient is a 68-year-old female with left knee pain for several years secondary to osteoarthritis. She cannot go shopping or do her home activities because of severe knee pain. She is no better with physical therapy, bracing, cortisone injections, Motrin, and tramadol. The patient's x-rays show that she is [id number] medially and laterally about the knee as well as having some patellofemoral narrowing with osteophytes. MEDICATIONS: Include Wellbutrin, albuterol, pantoprazole, verapamil, Trelegy, Ellipta and tramadol. PAST MEDICAL HISTORY: Include asthma, hypertension, anxiety, depression. PREVIOUS SURGICAL PROCEDURES: Include left shoulder and right shoulder. She has also had a hysterectomy, appendectomy and cholecystectomy. ALLERGIES: THE PATIENT IS ALLERGIC TO PENICILLIN WELL LATEX. SOCIAL HISTORY: The patient stopped smoking several years ago, but smoked for 20 years prior to that. She does not drink alcohol. She lives in [place] with her family. FAMILY HISTORY: Positive for breast cancer, coronary artery disease, peripheral vascular disease, stroke, diabetes and hypertension. REVIEW OF SYSTEMS: Positive for occasional shortness of breath associated with her asthma when the allergy season is present. Otherwise, negative for chest pain, nausea, vomiting, melena, hematochezia, dysuria, hematuria, fever, chills or weight loss. PHYSICAL EXAMINATION: GENERAL: Shows that she is 4 feet 11 inches, weighs 173 pounds. Healthy appearing 68-year-old female in no acute distress. HEENT: Within normal limits for her age. CHEST: Clear to auscultation bilaterally with occasional wheezes. HEART: Regular rate and rhythm. ABDOMEN: Soft, nontender, good bowel sounds. EXTREMITIES: The patient's left knee has a 1+ effusion. She has full extension with 120 degrees of flexion, mild to moderate crepitation, good medial and lateral stability. Her Bryanna and posterior drawer exams are negative. NEUROLOGIC: She is awake and alert. She is oriented x 3. Her cranial nerves 2-12 are grossly intact. She has 5/5 strength in all muscle groups of both upper and lower extremities. ASSESSMENT: Osteoarthritis, left knee. Other diagnoses include asthma, hypertension, anxiety, depression. PLAN: The patient is being admitted for left total knee arthroplasty. The risks and hazards of the procedure have been explained to the patient. She understands the risk involved and wants to proceed as planned. Bay Ang MD DR: ERIN/ina JOB# [id number]
--- NOTE | 2018-12-11 12:15 | OPH ---
DATE OF SURGERY: 12/11/2018 PREOPERATIVE DIAGNOSIS: Osteoarthritis of the left knee. POSTOPERATIVE DIAGNOSIS: Osteoarthritis of the left knee. OPERATIVE PROCEDURE: Left total knee arthroplasty using Medacta Sphere knee, size 2+ femur, size 2 tibia, 12 mm insert. All components were cemented. SURGEON: Bay Ang MD ANESTHESIA: General endotracheal. BLOOD LOSS: 300 mL. DRAINS: None. TOURNIQUET TIME: 68 minutes at 300 mmHg. DESCRIPTION OF INDICATIONS: A 68-year-old female with severe knee pain for several years secondary to OA. She cannot shop or do her housework. She has home ambulation pain. She is no better with tramadol, anti-inflammatories, cortisone injections, home exercise program as well as bracing. X-rays show that she is [id number] medially as well as having patellofemoral narrowing with osteophytes. The patient is admitted for elective left total knee arthroplasty for pain relief. DESCRIPTION OF PROCEDURE: The patient was placed on the operating table in the supine position. General endotracheal anesthetic was induced without difficulty. A well-padded tourniquet was placed around the left thigh. Left lower extremity was then sterilely prepped and draped. The leg was exsanguinated with an Esmarch and then tourniquet was inflated to 300 mmHg. The knee was flexed to 90 degrees. An anterior incision was made about the patella. Incision was taken through the skin and the subcutaneous tissues. Full thickness flaps were developed medially and laterally. Medial parapatellar arthrotomy was performed. The patella was deviated laterally. The patient then had the medial and lateral meniscectomies performed. The MCL and the capsule were released around the posteromedial corner. The anterior and posterior cruciate ligaments were released. The patient then had the [employer]AR[employer] femoral cutting guide placed about the distal femur and held into position with multiple pins. The patient had the distal femoral cut made with the power saw. The patient then had the #2 femoral jig applied size 2.5. It was held into position with multiple screws and multiple pins. The anterior and posterior femoral cuts as well as the chamfer cuts were made. The patient then had the bent knee retractor reapplied and the tibia was subluxed anteriorly. The medial and lateral meniscectomies were completed. The patient had the [email or web address] tibial guide placed about the proximal tibia and held into position with multiple pins. Tibial cut was then made with the power saw. A size 2 tibial trial was used and there was good coverage. The tibial trial was held into position with multiple pins. The central drill hole was made and then the cruciate punch was used to stabilize the tibial component. We did a trial reduction initially with a 10 mm spacer and then subsequently a 12 mm polyethylene component. With the 12 component, the patient had full extension, excellent medial and lateral stability throughout the range of motion. The patient then had the final medial and lateral femoral drill holes made. The femoral sulcus cut was made. The trial components were then removed from the knee. The wounds were all copiously irrigated and the bone ends were dried. The soft tissue was injected with Exparel. The patient had the size 2 tibial component cemented into position. The 12 mm insert was impacted into position and held there with anterior screw. The femoral component was likewise cemented. There was good tracking of the patella and it only measured 18 mm in thickness. So, we elected not to resurface the patella. The peripheral edges of the patella were removed with the rongeur and cauterized with the Bovie. The excess cement was removed with curettes. Once the cement had hardened, then the wound was irrigated with Betadine-containing solution. The bleeding was controlled with the Aquamantys device after the tourniquet was released. The patient had the capsule closed with a #2 PDS in interrupted [id number] manner. The patient then had the subcutaneous closed with 2-0 Monocryl barbed in a running manner and the skin was closed with dwayne. A Prevena type dressing was applied. The patient's dressing was reinforced with 4 x 4s, ABD pad, cast padding and Stewart wrap. The patient was extubated in the operating room, sent to recovery in stable condition. Bay Ang MD DR: ERIN/ina JOB# [id number]
[2018-12-11] MEDS: ULTRAM PO SCH ×4 (12:23→23:25)
--- NOTE | 2018-12-11 14:22 | DIREP ---
PROCEDURE:XRAY KNEE 2 VWS-LT COMPARISON:None. INDICATIONS:POST TOTAL LEFT KNEE FINDINGS: Knee prosthesis. Fluid and air in the soft tissue. Skin dwayne. No unexpected radiopaque foreign body. CONCLUSION:Knee replacement without adverse features Dictated by: Jose Delvalle Jr. on 12/11/2018 at 01:20 PM Read in [place]
[2018-12-11] MEDS: ULTRAM PO PRN ×2 (15:45→23:25)
--- NOTE | 2018-12-11 16:45 | PRM.PN ---
Subjective Subjective Date: Dec 11, 2018 Time: 16:44 Subjective Getting up with PT Pain ok VSS NVM+ HGB pending Stable Patient History: Alzheimer's disease PATERNAL AUNT, Asthma 33 FATHER, , Age:72 Cerebrovascular disorder PATERNAL GRANDMOTHER, Chronic obstructive pulmonary disease 33 FATHER, , Age:72 Congestive heart failure 33 FATHER, , Age:72 Diabetes mellitus PATERNAL GRANDMOTHER, Hypertension 32 MOTHER, , Age:52 33 FATHER, , Age:72 No known health problems V19 CHILD No Family History of: Diabetes insipidus Parkinson's disease VTE VTE Risk Total Score: >5 VTE Risk Score VTE Risk: Score 0-1 = Low Risk (Aggressive mobilization; early ambulation; no VTE prophylaxis required) Score 2: Moderate Risk (Intermittent/Pneumatic Compression Device OR Lovenox/Heparin/Coumadin) Score 3-4: High Risk (Intermittent/Pneumatic Compression Device AND Lovenox/Heparin/Coumadin) Score > or =5: Highest Risk (Intermittent/Pneumatic Compression Device AND Lovenox/Heparin/Coumadin) Review of Systems Respiratory: Cough, Shortness of breath, SOB with excertion, Wheezing Gastrointestinal: Constipation Neurological: Weakness Allergies: Coded Allergies: Penicillins (Unverified Allergy, Severe, CAN'T BREATH, SWELLS THROAT SHUT, SEVERE HEADACHE,RASH, 12/05/18) Latex, Natural Rubber (Verified Adverse Reaction, Severe, PELLS SKIN OFF, 12/05/18) Scheduled Ascorbic Acid (Vitamin C), 1,000 MG PO DAILY24, (Reported) Atorvastatin 20MG (Lipitor 20MG), 1 TAB PO HS, (Reported) Bupropion Hcl (Wellbutrin Xl), 1 TAB PO DAILY, (Reported) Fluticasone/Umeclidin/Vilanter (Trelegy Ellipta 100-62.5-25), 1 PUFF PO DAILY24, (Reported) Pantoprazole Sodium (Pantoprazole Sodium), 1 TAB PO DAILY, (Reported) Verapamil Hcl (Verapamil Er), 1 CAP PO DAILY, (Reported) [Allergy Shots], 1 VIAL SQ Q7D, (Reported) Scheduled PRN Albuterol Sulfate (Albuterol Sulfate), 2.5 MG IH TID PRN for WHEEZING, (Reported) Ipratropium/Albuterol Sulfate (Combivent Respimat Inhal [place]), Unknown Dose IH RTQID PRN for SHORTNESS OF BREATH, (Reported) Discontinued Medications Budesonide (Pulmicort), 0.5 MG IH DAILY, (Reported) Discontinued Reason: No Longer Taking Diazepam (Valium), 1 TAB PO BID PRN for ANXIETY, (Reported) Discontinued Reason: No Longer Taking Fluticasone/Vilanterol (Breo Ellipta 100-25 Mcg INH), 1 EACH IH DAILY24, (Reported) Discontinued Reason: No Longer Taking Ipratropium/Albuterol Sulfate (Combivent Respimat Inhal [place]), Unknown Dose IH DAILY, (Reported) Discontinued Reason: No Longer Taking Oseltamivir Phosphate (Tamiflu), 75 MG PO BID Discontinued Reason: No Longer Taking Prednisone (Prednisone), 2 TAB PO DAILY Discontinued Reason: No Longer Taking Tramadol Hcl (Tramadol Hcl), 50 MG PO Q4 PRN for PAIN, (Reported) Discontinued Reason: No Longer Taking Verapamil Hcl (Verapamil Er), 180 MG PO DAILY, (Reported) Discontinued Reason: No Longer Taking Objective Vitals and I/O Vital Sign - Last 24 Hours 12/11/18 12/11/18 12/11/18 12/11/18 05:58 05:58 07:09 07:16 Temp 98.2 Pulse 90 82 76 Resp 16 16 18 B/P (MAP) 153/99 (117) 172/84 (113) 163/72 (102) Pulse Ox 92 94 93 O2 Delivery Room Air Room Air Nasal Canula Nasal Canula O2 Flow Rate 3 2 12/11/18 12/11/18 12/11/18 12/11/18 07:26 08:00 08:00 10:31 Temp 97.7 Pulse 77 88 71 85 Resp 16 18 18 16 B/P (MAP) 152/87 (108) 137/64 (88) Pulse Ox 94 93 93 98 O2 Delivery Nasal [place] Non-Rebreather O2 Flow Rate 2 15 12/11/18 12/11/18 12/11/18 12/11/18 10:31 10:41 10:51 11:01 Temp 97.2 97.8 98.0 Pulse 68 69 79 Resp 17 17 18 B/P (MAP) 134/72 (92) 137/75 (95) 137/81 (99) Pulse Ox 99 98 96 O2 Delivery Non-Rebreather Non-Rebreather Nasal [place] O2 Flow Rate 15 10 5 3 12/11/18 12/11/18 12/11/18 12/11/18 11:21 11:30 13:51 14:46 Temp 97.6 Pulse 71 87 Resp 18 18 18 B/P (MAP) 134/79 (97) Pulse Ox 95 95 96 O2 Delivery Nasal Canula Nasal Cannula Nasal Cannula O2 Flow Rate 3 1.00 1.00 FiO2 24 General: Alert, Oriented X3, Cooperative, No acute distress HEENT: Atraumatic, PERRLA, EOMI, Mucous membr. moist/pink Lungs: Other Heart: Regular rate, Normal S1, Normal S2, No murmurs Abdomen: Normal bowel sounds, Soft, No tenderness Extremities: No edema, Normal pulses, No tenderness/swelling Neuro: Normal gait, Normal speech, Strength at 5/5 X4 ext, Normal tone, Sensation intact, Cranial nerves 3-12 NL Psych/Mental Status: Mental status NL, Mood NL All Results(Lab/Rad) Current Medications Medications (Trade) Dose Ordered Sig/Fani Route PRN Reason Start Time Stop Time Status Last Admin Dose Admin Vancomycin HCl 1500 mg/Sodium Chloride 100 ml @ 100 mls/hr OT ONCE IV 12/11/18 07:00 12/11/18 12:46 DC 12/11/18 07:03 Mupirocin (Bactroban Ointment) 1 gm OT ONCE TP 12/11/18 06:00 12/11/18 12:48 DC 12/11/18 06:17 Vancomycin HCl 1 ml @ ud STK-MED ONCE .ROUTE 12/11/18 05:09 12/11/18 05:10 DC Sodium Chloride 250 ml @ ud STK-MED ONCE IV 12/11/18 05:09 12/11/18 05:10 DC Bupivacaine HCl (Sensorcaine 0.5% Vial) 5 mg STK-MED ONCE .ROUTE 12/11/18 06:05 12/11/18 06:06 DC Ropivacaine (Naropin 0.2% 40 Mg/20 ml Vial) 2 mg STK-MED ONCE .ROUTE 12/11/18 06:05 12/11/18 06:06 DC Lidocaine HCl (Lidocaine 2% Vial) 500 mg STK-MED ONCE .ROUTE 12/11/18 06:05 12/11/18 06:06 DC Neostigmine Methylsulfate (Neostigmine) 10 mg STK-MED ONCE .ROUTE 12/11/18 06:05 12/11/18 06:07 DC Dexmedetomidine HCl (Precedex) 200 mcg STK-MED ONCE IV 12/11/18 06:06 12/11/18 06:07 DC Ondansetron HCl (Zofran) 4 mg STK-MED ONCE .ROUTE 12/11/18 06:06 12/11/18 06:07 DC Ropivacaine (Naropin 0.5% 5 Mg/ml Vial) 150 mg STK-MED ONCE .ROUTE 12/11/18 06:06 12/11/18 06:07 DC Ketorolac Tromethamine (Toradol) 15 mg STK-MED ONCE .ROUTE 12/11/18 06:06 12/11/18 06:07 DC Rocuronium Russell (Zemuron) 100 mg STK-MED ONCE IV 12/11/18 06:06 12/11/18 06:07 DC Hydromorphone HCl (Dilaudid) 2 mg STK-MED ONCE .ROUTE 12/11/18 06:06 12/11/18 06:08 DC Fentanyl Citrate (Sublimaze) 100 mcg STK-MED ONCE .ROUTE 12/11/18 06:07 12/11/18 06:08 DC Propofol (Diprivan) 200 mg STK-MED ONCE IV 12/11/18 06:07 12/11/18 06:09 DC Midazolam HCl (Versed) 1 mg STK-MED ONCE .ROUTE 12/11/18 06:07 12/11/18 06:09 DC Dexamethasone Sodium Phosphate (Decadron) 4 mg STK-MED ONCE .ROUTE 12/11/18 06:08 12/11/18 06:09 DC Celecoxib (Celebrex) 100 mg STK-MED ONCE .ROUTE 12/11/18 06:31 12/11/18 06:33 DC Acetaminophen (Tylenol) 500 mg STK-MED ONCE PO 12/11/18 06:31 12/11/18 06:33 DC Gabapentin (Neurontin) 400 mg STK-MED ONCE .ROUTE 12/11/18 06:31 12/11/18 06:33 DC Albuterol/ Ipratropium (Duoneb 0.5 Mg-3 Mg/3 ml Soln) 3 ml STK-MED ONCE IH 12/11/18 06:31 12/11/18 06:33 DC Acetaminophen (Tylenol) 1,000 mg OT PO 12/11/18 07:00 12/11/18 12:43 DC 12/11/18 06:37 Celecoxib (Celebrex) 200 mg OT PO 12/11/18 07:00 12/11/18 12:46 DC 12/11/18 06:36 Gabapentin (Neurontin) 400 mg OT PO 12/11/18 07:00 12/11/18 12:41 DC 12/11/18 06:36 Acetaminophen (Tylenol) 1,000 mg Q6H PO 12/11/18 07:00 01/10/19 06:59 12/11/18 12:24 Celecoxib (Celebrex) 200 mg Q12HR PO 12/11/18 09:00 12/11/18 12:46 DC Gabapentin (Neurontin) 400 mg Q24HRS PO 12/12/18 07:00 12/12/18 07:01 Albuterol/ Ipratropium (Duoneb 0.5 Mg-3 Mg/3 ml Soln) 3 ml OT ONCE IH 12/11/18 07:45 12/11/18 12:41 DC 12/11/18 08:01 Scopolamine (Transderm-Scop) 1 each STK-MED ONCE TD 12/11/18 06:58 12/11/18 06:59 DC Sodium Chloride (Sodium Chloride) 1,000 ml STK-MED ONCE IR 12/11/18 06:58 12/11/18 07:00 DC Sterile Water (Water) 1,000 ml STK-MED ONCE .ROUTE 12/11/18 06:59 12/11/18 07:00 DC Sodium Chloride 100 ml @ ud STK-MED ONCE IV 12/11/18 06:59 12/11/18 07:00 DC Sodium Chloride 250 ml @ ud STK-MED ONCE IV 12/11/18 06:59 12/11/18 07:00 DC Sodium Chloride (NS 3000ml Irr) 3,000 ml STK-MED ONCE IR 12/11/18 06:59 12/11/18 07:00 DC Tranexamic Acid (Tranexamic Acid) 1,000 mg STK-MED ONCE IV 12/11/18 07:03 12/11/18 07:04 DC Hydromorphone HCl (Dilaudid) 0.2 mg Q5MIN PRN IV PAIN 1 - 3 12/11/18 11:00 12/11/18 12:38 DC 12/11/18 11:08 Fentanyl Citrate (Sublimaze) 25 mcg Q5MIN PRN IV PAIN 12/11/18 11:00 12/11/18 12:38 DC Ondansetron HCl (Zofran) 4 mg PRN PRN IV nv 12/11/18 11:00 12/11/18 12:39 DC Promethazine HCl (Phenergan) 6.25 mg PRN PRN IV NAUSEA / VOMITING 12/11/18 11:00 12/11/18 12:41 DC Diphenhydramine HCl (Benadryl) 25 mg Q5MIN PRN IV NAUSEA / VOMITING 12/11/18 11:00 12/11/18 12:38 DC Albuterol Sulfate (Ventolin) 2.5 mg OT PRN IH WHEEZING 12/11/18 11:00 12/11/18 12:46 DC Tramadol HCl (Ultram) 50 mg Q4HR PO 12/11/18 12:00 01/10/19 11:59 12/11/18 12:23 Tramadol HCl (Ultram) 100 mg Q4HR PRN PO PAIN 4 - 6 12/11/18 11:00 01/10/19 10:59 12/11/18 15:45 Rivaroxaban (Xarelto) 10 mg DAILY PO 12/12/18 09:00 01/11/19 08:59 Docusate Sodium (Colace) 100 mg DAILY PO 12/12/18 09:00 01/11/19 08:59 Throat Lozenges (Cepacol Sore Throat Lozenge) 1 each PRN PRN MM SORE THROAT 12/11/18 11:00 01/10/19 10:59 Famotidine (Pepcid) 20 mg DAILY PO 12/12/18 09:00 01/11/19 08:59 Vancomycin HCl 1 gm/Sodium Chloride 250 ml @ 175 mls/hr Q12H IV 12/11/18 19:00 12/12/18 20:26 Hydromorphone HCl (Dilaudid) 1 mg Q4H PRN IV PAIN 7 - 10 12/11/18 11:00 01/10/19 10:59 Albuterol Sulfate (Ventolin) 2.5 mg TID PRN IH WHEEZING 12/11/18 11:00 01/10/19 10:59 Atorvastatin Calcium (Lipitor) 20 mg HS PO 12/11/18 21:00 01/10/19 20:59 Bupropion HCl (Wellbutrin Xl) 150 mg DAILY PO 12/12/18 09:00 01/11/19 08:59 Pantoprazole Sodium (Protonix) 40 mg DAILY PO 12/12/18 09:00 01/11/19 08:59 Verapamil HCl (Calan) 240 mg DAILY PO 12/12/18 09:00 01/11/19 08:59 Vancomycin HCl 1500 mg/Sodium Chloride 250 ml @ 175 mls/hr OT ONCE IV 12/11/18 08:24 12/11/18 12:47 DC Course Sepsis Screening Results: Posi: NEGATIVE Sepsis Qualifier/Stage: NO DEFINITE RISK Duration or Total Time Spent w: 2 HRS Vitals & review Data Vital Sign - Last 24 Hours 12/11/18 12/11/18 12/11/18 12/11/18 05:58 05:58 07:09 07:16 Temp 98.2 Pulse 90 82 76 Resp 16 16 18 B/P (MAP) 153/99 (117) 172/84 (113) 163/72 (102) Pulse Ox 92 94 93 O2 Delivery Room Air Room Air Nasal Canula Nasal Canula O2 Flow Rate 3 2 12/11/18 12/11/18 12/11/18 12/11/18 07:26 08:00 08:00 10:31 Temp 97.7 Pulse 77 88 71 85 Resp 16 18 18 16 B/P (MAP) 152/87 (108) 137/64 (88) Pulse Ox 94 93 93 98 O2 Delivery Nasal Canula Non-Rebreather O2 Flow Rate 2 15 12/11/18 12/11/18 12/11/18 12/11/18 10:31 10:41 10:51 11:01 Temp 97.2 97.8 98.0 Pulse 68 69 79 Resp 17 17 18 B/P (MAP) 134/72 (92) 137/75 (95) 137/81 (99) Pulse Ox 99 98 96 O2 Delivery Non-Rebreather Non-Rebreather Nasal Canula O2 Flow Rate 15 10 5 3 12/11/18 12/11/18 12/11/18 12/11/18 11:21 11:30 13:51 14:46 Temp 97.6 Pulse 71 87 Resp 18 18 18 B/P (MAP) 134/79 (97) Pulse Ox 95 95 96 O2 Delivery Nasal Canula Nasal Cannula Nasal Cannula O2 Flow Rate 3 1.00 1.00 FiO2 24 Current Medications Medications (Trade) Dose Ordered Sig/Fani PRN Reason Start Time Stop Time Status Last Admin Acetaminophen (Tylenol) 1,000 mg Q6H 12/11/18 07:00 01/10/19 06:59 12/11/18 12:24 Albuterol Sulfate (Ventolin) 2.5 mg TID PRN WHEEZING 12/11/18 11:00 01/10/19 10:59 Atorvastatin Calcium (Lipitor) 20 mg HS 12/11/18 21:00 01/10/19 20:59 Bupropion HCl (Wellbutrin Xl) 150 mg DAILY 12/12/18 09:00 01/11/19 08:59 Docusate Sodium (Colace) 100 mg DAILY 12/12/18 09:00 01/11/19 08:59 Famotidine (Pepcid) 20 mg DAILY 12/12/18 09:00 01/11/19 08:59 Gabapentin (Neurontin) 400 mg Q24HRS 12/12/18 07:00 12/12/18 07:01 Hydromorphone HCl (Dilaudid) 1 mg Q4H PRN PAIN 7 - 10 12/11/18 11:00 01/10/19 10:59 Pantoprazole Sodium (Protonix) 40 mg DAILY 12/12/18 09:00 01/11/19 08:59 Rivaroxaban (Xarelto) 10 mg DAILY 12/12/18 09:00 01/11/19 08:59 Throat Lozenges (Cepacol Sore Throat Lozenge) 1 each PRN PRN SORE THROAT 12/11/18 11:00 01/10/19 10:59 Tramadol HCl (Ultram) 50 mg Q4HR 12/11/18 12:00 01/10/19 11:59 12/11/18 12:23 Tramadol HCl (Ultram) 100 mg Q4HR PRN PAIN 4 - 6 12/11/18 11:00 01/10/19 10:59 12/11/18 15:45 Vancomycin HCl 1 gm/Sodium Chloride 250 ml @ 175 mls/hr Q12H 12/11/18 19:00 12/12/18 20:26 Verapamil HCl (Calan) 240 mg DAILY 12/12/18 09:00 01/11/19 08:59 Sepsis Infection Criteria Pres: None LEVEL 1 SEPSIS INFECTION CRITE: ABX Therapy, Recent Invasive Procedure LEVEL 2-SIRS (LIST ALL THAT AP: None/Not assessed Cardiovascular Evidence: Not Assessed or None Hematologic Evidence: None/Not assessed Hepatic Evidence: None/Not assessed Metabolic Evidence: None/Not assessed Neurological Evidence: None/Not assessed Respiratory Evidence: Need for O2 to keep>90%, O2 SAT<90room air Renal Evidence: None/Not assessed O2 Sat by Pulse Oximetry: 96 Oxygen Flow Rate: 1.00 CLEO AGUILERA MD Dec 11, 2018 16:45
[2018-12-11 18:46] LABS: HEMOGLOBIN 14.2 g/dL (12.0-15.0); MEAN CELL HGB 29.5 pg (26-34); MEAN CELL HGB CONCENTRATION 31.9 g/dL (33-37); MEAN CORP VOLUME 92.5 fL (78-100); MEAN PLATELET VOLUME 9.6 fL (7.8-11.0); RED CELL DISTRIBUTION WIDTH 14.8 % (11.5-14.5); WHITE BLOOD CELL 10.6 10^3/uL (4.5-11.0)
[2018-12-11] MEDS: VANCOMYCIN HCL 1 GM in NS 250ML 250 ML IV SCH (18:55)
[2018-12-11] MEDS ORDERED: DUONEB 0.5 MG-3 MG/3 ML SOLN IH PRN (19:30)
--- NOTE | 2018-12-11 19:35 | PCM.HP ---
History of Present Illness Reason for Visit: S/P L TKA History of Present Illness Patient is a 68 F PMH of Asthma and Hyperlipidemia who presents following L TKA with Orthopedic Surgery. Medicine team consulted for medical management of Asthma and HLD. Patient pain controlled. She is not tolerating PO currently. She is in no distress. She has no wheezing. She denies chest pain, shortness of breath, fever, or any other concerning symptoms. I reviewed her medical history, medications, labs, and imaging. Patient denies complaints currently. Past Medical History Cardiac: HTN Pulmonary: Asthma Past Surgical History: Appendectomy, Cholecystectomy, Total knee replacement, Other (Hysterectomy, R shoulder x 2, Left shoulder Arthroplasty) Past Social History Smoke: Quit Alcohol: none Drugs: None Lives: with Family Travel Hx EBOLA RISK:Travel to/contact w: No Review of Systems Constitutional: No: Fever, Chills Eyes: No: Conjunctivae inflammation, Eyelid inflammation ENT: No: Nose discharge, Nose congestion Respiratory: No: Cough, Shortness of breath, SOB with excertion, Wheezing Cardiovascular: No: Chest Pain, Palpitations, Edema Gastrointestinal: No: Nausea, Vomiting, Abdominal Pain Genitourinary: No Incontinence, No Retention Musculoskeletal: No: neck pain, back pain Skin: No: Rash, Lesions, Jaundice, Bruising Neurological: No: Weakness, Numbness, Incoordination, Change in speech, Confusion, Seizures Allergies: Coded Allergies: Penicillins (Unverified Allergy, Severe, CAN'T BREATH, SWELLS THROAT SHUT, SEVERE HEADACHE,RASH, 12/05/18) Latex, Natural Rubber (Verified Adverse Reaction, Severe, PELLS SKIN OFF, 12/05/18) Scheduled Ascorbic Acid (Vitamin C), 1,000 MG PO DAILY24, (Reported) Atorvastatin 20MG (Lipitor 20MG), 1 TAB PO HS, (Reported) Bupropion Hcl (Wellbutrin Xl), 1 TAB PO DAILY, (Reported) Fluticasone/Umeclidin/Vilanter (Trelegy Ellipta 100-62.5-25), 1 PUFF PO DAILY24, (Reported) Pantoprazole Sodium (Pantoprazole Sodium), 1 TAB PO DAILY, (Reported) Verapamil Hcl (Verapamil Er), 1 CAP PO DAILY, (Reported) [Allergy Shots], 1 VIAL SQ Q7D, (Reported) Scheduled PRN Albuterol Sulfate (Albuterol Sulfate), 2.5 MG IH TID PRN for WHEEZING, (Reported) Ipratropium/Albuterol Sulfate (Combivent Respimat Inhal [place]), Unknown Dose IH RTQID PRN for SHORTNESS OF BREATH, (Reported) Discontinued Medications Budesonide (Pulmicort), 0.5 MG IH DAILY, (Reported) Discontinued Reason: No Longer Taking Diazepam (Valium), 1 TAB PO BID PRN for ANXIETY, (Reported) Discontinued Reason: No Longer Taking Fluticasone/Vilanterol (Breo Ellipta 100-25 Mcg INH), 1 EACH IH DAILY24, (Reported) Discontinued Reason: No Longer Taking Ipratropium/Albuterol Sulfate (Combivent Respimat Inhal [place]), Unknown Dose IH DAILY, (Reported) Discontinued Reason: No Longer Taking Oseltamivir Phosphate (Tamiflu), 75 MG PO BID Discontinued Reason: No Longer Taking Prednisone (Prednisone), 2 TAB PO DAILY Discontinued Reason: No Longer Taking Tramadol Hcl (Tramadol Hcl), 50 MG PO Q4 PRN for PAIN, (Reported) Discontinued Reason: No Longer Taking Verapamil Hcl (Verapamil Er), 180 MG PO DAILY, (Reported) Discontinued Reason: No Longer Taking VTE VTE Risk Total Score: >5 VTE Risk Score VTE Risk: Score 0-1 = Low Risk (Aggressive mobilization; early ambulation; no VTE prophylaxis required) Score 2: Moderate Risk (Intermittent/Pneumatic Compression Device OR Lovenox/Heparin/Coumadin) Score 3-4: High Risk (Intermittent/Pneumatic Compression Device AND Lovenox/Heparin/Coumadin) Score > or =5: Highest Risk (Intermittent/Pneumatic Compression Device AND Lovenox/Heparin/Coumadin) VTE VTE Present on Admission: No Currently receiving anticoagul: No VTE Risk Total Score: >5 Exam Vital Signs Vital Signs Date Time Temp Pulse Resp B/P (MAP) Pulse Ox O2 Delivery O2 Flow Rate FiO2 12/11/18 14:46 87 18 96 Nasal Cannula 1.00 24 12/11/18 11:21 97.6 134/79 (97) General Appearance: Alert, Oriented X3, Cooperative, No acute distress HEENT: Atraumatic, PERRLA, EOMI, Mucous membr. moist/pink Respiratory: Clear to auscultation, Normal air movement Cardiovascular: Regular rate, Normal S1, Normal S2, No murmurs Abdominal: Normal bowel sounds, Soft, No tenderness Extremities: Other (Dressing, supportive devices in place following L TKA) Skin: No rash, No breakdown, No lesions Neuro: Normal speech, Strength at 5/5 X4 ext, Normal tone, Sensation intact, Cranial nerves 3-12 NL Psych/Mental Status: Mental status NL, Mood NL Assessment/Plan Assessment/Plan Assessment/Plan Patient is a 68 F PMH of Asthma and Hyperlipidemia who presents following L TKA with Orthopedic Surgery. Patient History: Alzheimer's disease PATERNAL AUNT, Asthma 33 FATHER, , Age:72 Cerebrovascular disorder PATERNAL GRANDMOTHER, Chronic obstructive pulmonary disease 33 FATHER, , Age:72 Congestive heart failure 33 FATHER, , Age:72 Diabetes mellitus PATERNAL GRANDMOTHER, Hypertension 32 MOTHER, , Age:52 33 FATHER, , Age:72 No known health problems V19 CHILD No Family History of: Diabetes insipidus Parkinson's disease Plan 1. OA left knee: s/p Left TKA with Ortho. PT to eval/treat. Cont pain control. 2. HLD: cont Statin 3. Asthma: cont ICS, added Nebs PRN. Currently no symptoms. 4. PPx: Concepción, GUDELIA PRINCE MD Dec 11, 2018 19:35
[2018-12-11] MEDS: LIPITOR PO SCH (20:58)
[2018-12-12] VITALS (7 sets, daily range): BP systolic 108–167; BP diastolic 47–77
[2018-12-12] MEDS: TYLENOL PO SCH ×4 (00:47→18:53)
[2018-12-12] MEDS: ULTRAM PO SCH ×6 (04:00→23:29)
[2018-12-12] MEDS: ULTRAM PO PRN (04:01)
[2018-12-12 04:57] LABS: HEMOGLOBIN 12.7 g/dL (12.0-15.0); MEAN CELL HGB CONCENTRATION 32.6 g/dL (33-37); MEAN CORP VOLUME 92.2 fL (78-100); MEAN PLATELET VOLUME 9.3 fL (7.8-11.0); RED CELL DISTRIBUTION WIDTH 14.5 % (11.5-14.5)
[2018-12-12 05:19] LABS: CALCIUM 8.7 mg/dL (8.4-10.5); CARBON DIOXIDE 25.9 mmol/L (20.0-32)
[2018-12-12] MEDS: LACTATED RINGERS 1,000 ML IV SCH (05:26)
[2018-12-12] MEDS ORDERED: NEURONTIN ONE (05:38)
[2018-12-12] MEDS: VANCOMYCIN HCL 1 GM in NS 250ML 250 ML IV SCH ×2 (06:16→18:52)
[2018-12-12] MEDS ORDERED: NEURONTIN PO SCH (07:00)
[2018-12-12] MEDS: PROTONIX PO SCH (08:59)
[2018-12-12] MEDS: COLACE PO SCH (08:59)
[2018-12-12] MEDS: PEPCID PO SCH (08:59)
[2018-12-12] MEDS: XARELTO PO SCH (08:59)
[2018-12-12] MEDS: WELLBUTRIN XL PO SCH (09:00)
[2018-12-12] MEDS: CALAN PO SCH (09:00)
--- NOTE | 2018-12-12 10:23 | PRM.PN ---
Subjective Subjective Date: Dec 12, 2018 Time: 10:22 Subjective Ambulated in biggs this am Pain ok VSS Hgb 12.7 NVM+ Cont with PT Patient History: Alzheimer's disease PATERNAL AUNT, Asthma 33 FATHER, , Age:72 Cerebrovascular disorder PATERNAL GRANDMOTHER, Chronic obstructive pulmonary disease 33 FATHER, , Age:72 Congestive heart failure 33 FATHER, , Age:72 Diabetes mellitus PATERNAL GRANDMOTHER, Hypertension 32 MOTHER, , Age:52 33 FATHER, , Age:72 No known health problems V19 CHILD No Family History of: Diabetes insipidus Parkinson's disease VTE VTE Risk Total Score: >5 VTE Risk Score VTE Risk: Score 0-1 = Low Risk (Aggressive mobilization; early ambulation; no VTE prophylaxis required) Score 2: Moderate Risk (Intermittent/Pneumatic Compression Device OR Lovenox/Heparin/Coumadin) Score 3-4: High Risk (Intermittent/Pneumatic Compression Device AND Lovenox/Heparin/Coumadin) Score > or =5: Highest Risk (Intermittent/Pneumatic Compression Device AND Lovenox/Heparin/Coumadin) Review of Systems Constitutional: No: Fever, Chills Eyes: No: Conjunctivae inflammation, Eyelid inflammation ENT: No: Nose discharge, Nose congestion Respiratory: No: Cough, Shortness of breath, SOB with excertion, Wheezing Cardiovascular: No: Chest Pain, Palpitations, Edema Gastrointestinal: No: Nausea, Vomiting, Abdominal Pain Genitourinary: No Incontinence, No Retention Musculoskeletal: No: neck pain, back pain Skin: No: Rash, Lesions, Jaundice, Bruising Neurological: No: Weakness, Numbness, Incoordination, Change in speech, Confusion, Seizures Allergies: Coded Allergies: Penicillins (Unverified Allergy, Severe, CAN'T BREATH, SWELLS THROAT SHUT, SEVERE HEADACHE,RASH, 12/05/18) Latex, Natural Rubber (Verified Adverse Reaction, Severe, PELLS SKIN OFF, 12/05/18) Scheduled Ascorbic Acid (Vitamin C), 1,000 MG PO DAILY24, (Reported) Atorvastatin 20MG (Lipitor 20MG), 1 TAB PO HS, (Reported) Bupropion Hcl (Wellbutrin Xl), 1 TAB PO DAILY, (Reported) Fluticasone/Umeclidin/Vilanter (Trelegy Ellipta 100-62.5-25), 1 PUFF PO DAILY24, (Reported) Pantoprazole Sodium (Pantoprazole Sodium), 1 TAB PO DAILY, (Reported) Verapamil Hcl (Verapamil Er), 1 CAP PO DAILY, (Reported) [Allergy Shots], 1 VIAL SQ Q7D, (Reported) Scheduled PRN Albuterol Sulfate (Albuterol Sulfate), 2.5 MG IH TID PRN for WHEEZING, (Reported) Ipratropium/Albuterol Sulfate (Combivent Respimat Inhal [place]), Unknown Dose IH RTQID PRN for SHORTNESS OF BREATH, (Reported) Discontinued Medications Budesonide (Pulmicort), 0.5 MG IH DAILY, (Reported) Discontinued Reason: No Longer Taking Diazepam (Valium), 1 TAB PO BID PRN for ANXIETY, (Reported) Discontinued Reason: No Longer Taking Fluticasone/Vilanterol (Breo Ellipta 100-25 Mcg INH), 1 EACH IH DAILY24, (Reported) Discontinued Reason: No Longer Taking Ipratropium/Albuterol Sulfate (Combivent Respimat Inhal [place]), Unknown Dose IH DAILY, (Reported) Discontinued Reason: No Longer Taking Oseltamivir Phosphate (Tamiflu), 75 MG PO BID Discontinued Reason: No Longer Taking Prednisone (Prednisone), 2 TAB PO DAILY Discontinued Reason: No Longer Taking Tramadol Hcl (Tramadol Hcl), 50 MG PO Q4 PRN for PAIN, (Reported) Discontinued Reason: No Longer Taking Verapamil Hcl (Verapamil Er), 180 MG PO DAILY, (Reported) Discontinued Reason: No Longer Taking Objective Vitals and I/O Vital Sign - Last 24 Hours 12/11/18 12/11/18 12/11/18 12/11/18 05:58 05:58 07:09 07:16 Temp 98.2 Pulse 90 82 76 Resp 16 16 18 B/P (MAP) 153/99 (117) 172/84 (113) 163/72 (102) Pulse Ox 92 94 93 O2 Delivery Room Air Room Air Nasal Canula Nasal Canula O2 Flow Rate 3 2 12/11/18 12/11/18 12/11/18 12/11/18 07:26 08:00 08:00 10:31 Temp 97.7 Pulse 77 88 71 85 Resp 16 18 18 16 B/P (MAP) 152/87 (108) 137/64 (88) Pulse Ox 94 93 93 98 O2 Delivery Nasal [place] Non-Rebreather O2 Flow Rate 2 15 12/11/18 12/11/18 12/11/18 12/11/18 10:31 10:41 10:51 11:01 Temp 97.2 97.8 98.0 Pulse 68 69 79 Resp 17 17 18 B/P (MAP) 134/72 (92) 137/75 (95) 137/81 (99) Pulse Ox 99 98 96 O2 Delivery Non-Rebreather Non-Rebreather Nasal [place] O2 Flow Rate 15 10 5 3 12/11/18 12/11/18 12/11/18 12/11/18 11:21 11:30 13:51 14:46 Temp 97.6 Pulse 71 87 Resp 18 18 18 B/P (MAP) 134/79 (97) Pulse Ox 95 95 96 O2 Delivery Nasal Canula Nasal Cannula Nasal Cannula O2 Flow Rate 3 1.00 1.00 FiO2 24 General: Alert, Oriented X3, Cooperative, No acute distress HEENT: Atraumatic, PERRLA, EOMI, Mucous membr. moist/pink Lungs: Clear to auscultation, Normal air movement Heart: Regular rate, Normal S1, Normal S2, No murmurs Abdomen: Normal bowel sounds, Soft, No tenderness Extremities: Other (Dressing, supportive devices in place following L TKA) Neuro: Normal speech, Strength at 5/5 X4 ext, Normal tone, Sensation intact, Cranial nerves 3-12 NL Psych/Mental Status: Mental status NL, Mood NL All Results(Lab/Rad) Current Medications Medications (Trade) Dose Ordered Sig/Fani Route PRN Reason Start Time Stop Time Status Last Admin Dose Admin Vancomycin HCl 1500 mg/Sodium Chloride 100 ml @ 100 mls/hr OT ONCE IV 12/11/18 07:00 12/11/18 12:46 DC 12/11/18 07:03 Mupirocin (Bactroban Ointment) 1 gm OT ONCE TP 12/11/18 06:00 12/11/18 12:48 DC 12/11/18 06:17 Vancomycin HCl 1 ml @ ud STK-MED ONCE .ROUTE 12/11/18 05:09 12/11/18 05:10 DC Sodium Chloride 250 ml @ ud STK-MED ONCE IV 12/11/18 05:09 12/11/18 05:10 DC Bupivacaine HCl (Sensorcaine 0.5% Vial) 5 mg STK-MED ONCE .ROUTE 12/11/18 06:05 12/11/18 06:06 DC Ropivacaine (Naropin 0.2% 40 Mg/20 ml Vial) 2 mg STK-MED ONCE .ROUTE 12/11/18 06:05 12/11/18 06:06 DC Lidocaine HCl (Lidocaine 2% Vial) 500 mg STK-MED ONCE .ROUTE 12/11/18 06:05 12/11/18 06:06 DC Neostigmine Methylsulfate (Neostigmine) 10 mg STK-MED ONCE .ROUTE 12/11/18 06:05 12/11/18 06:07 DC Dexmedetomidine HCl (Precedex) 200 mcg STK-MED ONCE IV 12/11/18 06:06 12/11/18 06:07 DC Ondansetron HCl (Zofran) 4 mg STK-MED ONCE .ROUTE 12/11/18 06:06 12/11/18 06:07 DC Ropivacaine (Naropin 0.5% 5 Mg/ml Vial) 150 mg STK-MED ONCE .ROUTE 12/11/18 06:06 12/11/18 06:07 DC Ketorolac Tromethamine (Toradol) 15 mg STK-MED ONCE .ROUTE 12/11/18 06:06 12/11/18 06:07 DC Rocuronium [place] (Zemuron) 100 mg STK-MED ONCE IV 12/11/18 06:06 12/11/18 06:07 DC Hydromorphone HCl (Dilaudid) 2 mg STK-MED ONCE .ROUTE 12/11/18 06:06 12/11/18 06:08 DC Fentanyl Citrate (Sublimaze) 100 mcg STK-MED ONCE .ROUTE 12/11/18 06:07 12/11/18 06:08 DC Propofol (Diprivan) 200 mg STK-MED ONCE IV 12/11/18 06:07 12/11/18 06:09 DC Midazolam HCl (Versed) 1 mg STK-MED ONCE .ROUTE 12/11/18 06:07 12/11/18 06:09 DC Dexamethasone Sodium Phosphate (Decadron) 4 mg STK-MED ONCE .ROUTE 12/11/18 06:08 12/11/18 06:09 DC Celecoxib (Celebrex) 100 mg STK-MED ONCE .ROUTE 12/11/18 06:31 12/11/18 06:33 DC Acetaminophen (Tylenol) 500 mg STK-MED ONCE PO 12/11/18 06:31 12/11/18 06:33 DC Gabapentin (Neurontin) 400 mg STK-MED ONCE .ROUTE 12/11/18 06:31 12/11/18 06:33 DC Albuterol/ Ipratropium (Duoneb 0.5 Mg-3 Mg/3 ml Soln) 3 ml STK-MED ONCE IH 12/11/18 06:31 12/11/18 06:33 DC Acetaminophen (Tylenol) 1,000 mg OT PO 12/11/18 07:00 12/11/18 12:43 DC 12/11/18 06:37 Celecoxib (Celebrex) 200 mg OT PO 12/11/18 07:00 12/11/18 12:46 DC 12/11/18 06:36 Gabapentin (Neurontin) 400 mg OT PO 12/11/18 07:00 12/11/18 12:41 DC 12/11/18 06:36 Acetaminophen (Tylenol) 1,000 mg Q6H PO 12/11/18 07:00 01/10/19 06:59 12/11/18 12:24 Celecoxib (Celebrex) 200 mg Q12HR PO 12/11/18 09:00 12/11/18 12:46 DC Gabapentin (Neurontin) 400 mg Q24HRS PO 12/12/18 07:00 12/12/18 07:01 Albuterol/ Ipratropium (Duoneb 0.5 Mg-3 Mg/3 ml Soln) 3 ml OT ONCE IH 12/11/18 07:45 12/11/18 12:41 DC 12/11/18 08:01 Scopolamine (Transderm-Scop) 1 each STK-MED ONCE TD 12/11/18 06:58 12/11/18 06:59 DC Sodium Chloride (Sodium Chloride) 1,000 ml STK-MED ONCE IR 12/11/18 06:58 12/11/18 07:00 DC Sterile Water (Water) 1,000 ml STK-MED ONCE .ROUTE 12/11/18 06:59 12/11/18 07:00 DC Sodium Chloride 100 ml @ ud STK-MED ONCE IV 12/11/18 06:59 12/11/18 07:00 DC Sodium Chloride 250 ml @ STK-MED ONCE IV 12/11/18 06:59 12/11/18 07:00 DC Sodium Chloride (NS 3000ml Irr) 3,000 ml STK-MED ONCE IR 12/11/18 06:59 12/11/18 07:00 DC Tranexamic Acid (Tranexamic Acid) 1,000 mg STK-MED ONCE IV 12/11/18 07:03 12/11/18 07:04 DC Hydromorphone HCl (Dilaudid) 0.2 mg Q5MIN PRN IV PAIN 1 - 3 12/11/18 11:00 12/11/18 12:38 DC 12/11/18 11:08 Fentanyl Citrate (Sublimaze) 25 mcg Q5MIN PRN IV PAIN 12/11/18 11:00 12/11/18 12:38 DC Ondansetron HCl (Zofran) 4 mg PRN PRN IV nv 12/11/18 11:00 12/11/18 12:39 DC Promethazine HCl (Phenergan) 6.25 mg PRN PRN IV NAUSEA / VOMITING 12/11/18 11:00 12/11/18 12:41 DC Diphenhydramine HCl (Benadryl) 25 mg Q5MIN PRN IV NAUSEA / VOMITING 12/11/18 11:00 12/11/18 12:38 DC Albuterol Sulfate (Ventolin) 2.5 mg OT PRN IH WHEEZING 12/11/18 11:00 12/11/18 12:46 DC Tramadol HCl (Ultram) 50 mg Q4HR PO 12/11/18 12:00 01/10/19 11:59 12/11/18 12:23 Tramadol HCl (Ultram) 100 mg Q4HR PRN PO PAIN 4 - 6 12/11/18 11:00 01/10/19 10:59 12/11/18 15:45 Rivaroxaban (Xarelto) 10 mg DAILY PO 12/12/18 09:00 01/11/19 08:59 Docusate Sodium (Colace) 100 mg DAILY PO 12/12/18 09:00 01/11/19 08:59 Throat Lozenges (Cepacol Sore Throat Lozenge) 1 each PRN PRN MM SORE THROAT 12/11/18 11:00 01/10/19 10:59 Famotidine (Pepcid) 20 mg DAILY PO 12/12/18 09:00 01/11/19 08:59 Vancomycin HCl 1 gm/Sodium Chloride 250 ml @ 175 mls/hr Q12H IV 12/11/18 19:00 12/12/18 20:26 Hydromorphone HCl (Dilaudid) 1 mg Q4H PRN IV PAIN 7 - 12/11/18 11:00 01/10/19 10:59 Albuterol Sulfate (Ventolin) 2.5 mg TID PRN IH WHEEZING 12/11/18 11:00 01/10/19 10:59 Atorvastatin Calcium (Lipitor) 20 mg HS PO 12/11/18 21:00 01/10/19 20:59 Bupropion HCl (Wellbutrin Xl) 150 mg DAILY PO 12/12/18 09:00 01/11/19 08:59 Pantoprazole Sodium (Protonix) 40 mg DAILY PO 12/12/18 09:00 01/11/19 08:59 Verapamil HCl (Calan) 240 mg DAILY PO 12/12/18 09:00 01/11/19 08:59 Vancomycin HCl 1500 mg/Sodium Chloride 250 ml @ 175 mls/hr OT ONCE IV 12/11/18 08:24 12/11/18 12:47 DC Course Sepsis Screening Results: Posi: NEGATIVE Sepsis Qualifier/Stage: NO DEFINITE RISK Duration or Total Time Spent w: 2 HRS Vitals & review Data Vital Sign - Last 24 Hours 12/11/18 12/11/18 12/11/18 12/11/18 05:58 05:58 07:09 07:16 Temp 98.2 Pulse 90 82 76 Resp 16 16 18 B/P (MAP) 153/99 (117) 172/84 (113) 163/72 (102) Pulse Ox 92 94 93 O2 Delivery Room Air Room Air Nasal Canula Nasal Canula O2 Flow Rate 3 2 12/11/18 12/11/18 12/11/18 12/11/18 07:26 08:00 08:00 10:31 Temp 97.7 Pulse 77 88 71 85 Resp 16 18 18 16 B/P (MAP) 152/87 (108) 137/64 (88) Pulse Ox 94 93 93 98 O2 Delivery Nasal [place] Non-Rebreather O2 Flow Rate 2 15 12/11/18 12/11/18 12/11/18 12/11/18 10:31 10:41 10:51 11:01 Temp 97.2 97.8 98.0 Pulse 68 69 79 Resp 17 17 18 B/P (MAP) 134/72 (92) 137/75 (95) 137/81 (99) Pulse Ox 99 98 96 O2 Delivery Non-Rebreather Non-Rebreather Nasal [place] O2 Flow Rate 15 10 5 3 12/11/18 12/11/18 12/11/18 12/11/18 11:21 11:30 13:51 14:46 Temp 97.6 Pulse 71 87 Resp 18 18 18 B/P (MAP) 134/79 (97) Pulse Ox 95 95 96 O2 Delivery Nasal [place] Nasal Cannula Nasal Cannula O2 Flow Rate 3 1.00 1.00 FiO2 24 Current Medications Medications (Trade) Dose Ordered Sig/Fani PRN Reason Start Time Stop Time Status Last Admin Acetaminophen (Tylenol) 1,000 mg Q6H 12/11/18 07:00 01/10/19 06:59 12/11/18 12:24 Albuterol Sulfate (Ventolin) 2.5 mg TID PRN WHEEZING 12/11/18 11:00 01/10/19 10:59 Atorvastatin Calcium (Lipitor) 20 mg HS 12/11/18 21:00 01/10/19 20:59 Bupropion HCl (Wellbutrin Xl) 150 mg DAILY 12/12/18 09:00 01/11/19 08:59 Docusate Sodium (Colace) 100 mg DAILY 12/12/18 09:00 01/11/19 08:59 Famotidine (Pepcid) 20 mg DAILY 12/12/18 09:00 01/11/19 08:59 Gabapentin (Neurontin) 400 mg Q24HRS 12/12/18 07:00 12/12/18 07:01 Hydromorphone HCl (Dilaudid) 1 mg Q4H PRN PAIN 7 - 10 12/11/18 11:00 01/10/19 10:59 Pantoprazole Sodium (Protonix) 40 mg DAILY 12/12/18 09:00 01/11/19 08:59 Rivaroxaban (Xarelto) 10 mg DAILY 12/12/18 09:00 01/11/19 08:59 Throat Lozenges (Cepacol Sore Throat Lozenge) 1 each PRN PRN SORE THROAT 12/11/18 11:00 01/10/19 10:59 Tramadol HCl (Ultram) 50 mg Q4HR 12/11/18 12:00 01/10/19 11:59 12/11/18 12:23 Tramadol HCl (Ultram) 100 mg Q4HR PRN PAIN 4 - 6 12/11/18 11:00 01/10/19 10:59 12/11/18 15:45 Vancomycin HCl 1 gm/Sodium Chloride 250 ml @ 175 mls/hr Q12H 12/11/18 19:00 12/12/18 20:26 Verapamil HCl (Calan) 240 mg DAILY 12/12/18 09:00 01/11/19 08:59 Sepsis Infection Criteria Pres: None LEVEL 1 SEPSIS INFECTION CRITE: ABX Therapy, Recent Invasive Procedure LEVEL 2-SIRS (LIST ALL THAT AP: None/Not assessed Cardiovascular Evidence: Not Assessed or None Hematologic Evidence: None/Not assessed Hepatic Evidence: None/Not assessed Metabolic Evidence: None/Not assessed Neurological Evidence: None/Not assessed Respiratory Evidence: None/Not assessed Renal Evidence: None/Not assessed O2 Sat by Pulse Oximetry: 96 Oxygen Flow Rate: 1.00 Assessment/Plan Assessment/Plan Assessment/Plan 1. OA left knee: s/p Left TKA with Ortho. PT to eval/treat. Cont pain control. 2. HLD: cont Statin 3. Asthma: cont ICS, added Nebs PRN. Currently no symptoms. 4. PPx: Xarelto, PPI Plan 1. OA left knee: s/p Left TKA with Ortho. PT to eval/treat. Cont pain control. 2. HLD: cont Statin 3. Asthma: cont ICS, added Nebs PRN. Currently no symptoms. 4. PPx: Xarelto, PPI CLEO AGUILERA MD Dec 12, 2018 10:23
--- NOTE | 2018-12-12 10:52 | NUR ---
post op day 1 S/P TKR and pain blocks. Pt sitting up in chair reading newspaper. States she started to feel pain around 3 am. Had some pain medication at that time. she stated when she walked to the nurses station that her knee hurt. she states it feels so much better than it did preop due to the bone spurs she had. States most of the pain is on the top of the knee and pain in back of knee with ambulation. no anesthesia complication noted at this time
--- NOTE | 2018-12-12 11:36 | NUR ---
DISCHARGE PLAN/REFERRAL CM VISITED WITH PATIENT REGARDING DISCHARGE PLAN AND GOAL. PATIENT CURRENTLY LIVES AT HOME WITH SPOUSE. INDEPENDENT OF ADLS PRIOR TO THIS ADMISSION. SHE DOES HAVE A SHOWER CHAIR, BUT IS REQUESTING A WALKER FROM [facility]. CM FAXED ORDER FOR ROLLING WALKER TO [facility] AND GAVE PATIENT INSTRUCTIONS TO HAVE FAMILY MEMBER PICK WALKER UP TOMORROW AND BRING TO THE HOSPITAL. PCP IS DR COYNE. SHE IS FINANCIALLY ABLE TO PAY FOR HIS MEDICATIONS. CM EDUCATED PT ON SNF, OUTPATIENT, AND HOME HEALTH. PATIENT PREFERS [facility] FOR OUTPATIENT [place]. CHOICE LETTER SIGNED AND PLACED IN CHART. CM PHONED [facility] AND SPOKE TO RHEA THE FIRST AVAILABLE APPOINTMENT IS 12/15/18 @ [id number]. DISCHARGE GOAL IS FOR PATIENT TO D/C TO HOME AND HAVE THERAPY AN OUTPATIENT AT [facility]. CM WILL MONITOR NEEDS UNTIL DISCHARGE.
--- NOTE | 2018-12-12 13:57 | PRM.PN ---
Subjective Subjective Date: Dec 12, 2018 Time: 13:50 Subjective Patient requesting medication for insomnia. Labs, vitals reviewed. Pain controlled. Patient denies distress. Patient History: Alzheimer's disease PATERNAL AUNT, Asthma 33 FATHER, , Age:72 Cerebrovascular disorder PATERNAL GRANDMOTHER, Chronic obstructive pulmonary disease 33 FATHER, , Age:72 Congestive heart failure 33 FATHER, , Age:72 Diabetes mellitus PATERNAL GRANDMOTHER, Hypertension 32 MOTHER, , Age:52 33 FATHER, , Age:72 No known health problems V19 CHILD No Family History of: Diabetes insipidus Parkinson's disease VTE VTE Risk Total Score: >5 VTE Risk Score VTE Risk: Score 0-1 = Low Risk (Aggressive mobilization; early ambulation; no VTE prophylaxis required) Score 2: Moderate Risk (Intermittent/Pneumatic Compression Device OR Lovenox/Heparin/Coumadin) Score 3-4: High Risk (Intermittent/Pneumatic Compression Device AND Lovenox/Heparin/Coumadin) Score > or =5: Highest Risk (Intermittent/Pneumatic Compression Device AND Lovenox/Heparin/Coumadin) Review of Systems Allergies: Coded Allergies: Penicillins (Unverified Allergy, Severe, CAN'T BREATH, SWELLS THROAT SHUT, SEVERE HEADACHE,RASH, 12/05/18) Latex, Natural Rubber (Verified Adverse Reaction, Severe, PELLS SKIN OFF, 12/05/18) Scheduled Ascorbic Acid (Vitamin C), 1,000 MG PO DAILY24, (Reported) Atorvastatin 20MG (Lipitor 20MG), 1 TAB PO HS, (Reported) Bupropion Hcl (Wellbutrin Xl), 1 TAB PO DAILY, (Reported) Fluticasone/Umeclidin/Vilanter (Trelegy Ellipta 100-62.5-25), 1 PUFF PO DAILY24, (Reported) Pantoprazole Sodium (Pantoprazole Sodium), 1 TAB PO DAILY, (Reported) Verapamil Hcl (Verapamil Er), 1 CAP PO DAILY, (Reported) [Allergy Shots], 1 VIAL SQ Q7D, (Reported) Scheduled PRN Albuterol Sulfate (Albuterol Sulfate), 2.5 MG IH TID PRN for WHEEZING, (Reported) Ipratropium/Albuterol Sulfate (Combivent Respimat Inhal Sarah), Unknown Dose IH RTQID PRN for SHORTNESS OF BREATH, (Reported) Discontinued Medications Budesonide (Pulmicort), 0.5 MG IH DAILY, (Reported) Discontinued Reason: No Longer Taking Diazepam (Valium), 1 TAB PO BID PRN for ANXIETY, (Reported) Discontinued Reason: No Longer Taking Fluticasone/Vilanterol (Breo Ellipta 100-25 Mcg INH), 1 EACH IH DAILY24, (Reported) Discontinued Reason: No Longer Taking Ipratropium/Albuterol Sulfate (Combivent Respimat Inhal Sarah), Unknown Dose IH DAILY, (Reported) Discontinued Reason: No Longer Taking Oseltamivir Phosphate (Tamiflu), 75 MG PO BID Discontinued Reason: No Longer Taking Prednisone (Prednisone), 2 TAB PO DAILY Discontinued Reason: No Longer Taking Tramadol Hcl (Tramadol Hcl), 50 MG PO Q4 PRN for PAIN, (Reported) Discontinued Reason: No Longer Taking Verapamil Hcl (Verapamil Er), 180 MG PO DAILY, (Reported) Discontinued Reason: No Longer Taking Objective Vitals and I/O Vital Sign - Last 24 Hours 12/11/18 12/11/18 12/11/18 12/11/18 05:58 05:58 07:09 07:16 Temp 98.2 Pulse 90 82 76 Resp 16 16 18 B/P (MAP) 153/99 (117) 172/84 (113) 163/72 (102) Pulse Ox 92 94 93 O2 Delivery Room Air Room Air Nasal Canula Nasal Canula O2 Flow Rate 3 2 12/11/18 12/11/18 12/11/18 12/11/18 07:26 08:00 08:00 10:31 Temp 97.7 Pulse 77 88 71 85 Resp 16 18 18 16 B/P (MAP) 152/87 (108) 137/64 (88) Pulse Ox 94 93 93 98 O2 Delivery Nasal Canula Non-Rebreather O2 Flow Rate 2 15 12/11/18 12/11/18 12/11/18 12/11/18 10:31 10:41 10:51 11:01 Temp 97.2 97.8 98.0 Pulse 68 69 79 Resp 17 17 18 B/P (MAP) 134/72 (92) 137/75 (95) 137/81 (99) Pulse Ox 99 98 96 O2 Delivery Non-Rebreather Non-Rebreather Nasal Canula O2 Flow Rate 15 10 5 3 12/11/18 12/11/18 12/11/18 12/11/18 11:21 11:30 13:51 14:46 Temp 97.6 Pulse 71 87 Resp 18 18 18 B/P (MAP) 134/79 (97) Pulse Ox 95 95 96 O2 Delivery Nasal Canula Nasal Cannula Nasal Cannula O2 Flow Rate 3 1.00 1.00 FiO2 24 General: Alert, Oriented X3, Cooperative, No acute distress HEENT: Atraumatic, PERRLA, EOMI, Mucous membr. moist/pink Neck: Supple, No JVD Lungs: Clear to auscultation, Normal air movement Heart: Regular rate, Normal S1, Normal S2, No murmurs Abdomen: Normal bowel sounds, Soft, No tenderness Extremities: Other (Dressing, supportive devices in place following L TKA) Skin: No rashes, No breakdown, No significant lesion Neuro: Normal speech, Strength at 5/5 X4 ext, Normal tone, Sensation intact, Cranial nerves 3-12 NL Psych/Mental Status: Mental status NL, Mood NL All Results(Lab/Rad) Current Medications Medications (Trade) Dose Ordered Sig/Fani Route PRN Reason Start Time Stop Time Status Last Admin Dose Admin Vancomycin HCl 1500 mg/Sodium Chloride 100 ml @ 100 mls/hr OT ONCE IV 12/11/18 07:00 12/11/18 12:46 DC 12/11/18 07:03 Mupirocin (Bactroban Ointment) 1 gm OT ONCE TP 12/11/18 06:00 12/11/18 12:48 DC 12/11/18 06:17 Vancomycin HCl 1 ml @ ud STK-MED ONCE .ROUTE 12/11/18 05:09 12/11/18 05:10 DC Sodium Chloride 250 ml @ ud STK-MED ONCE IV 12/11/18 05:09 12/11/18 05:10 DC Bupivacaine HCl (Sensorcaine 0.5% Vial) 5 mg STK-MED ONCE .ROUTE 12/11/18 06:05 12/11/18 06:06 DC Ropivacaine (Naropin 0.2% 40 Mg/20 ml Vial) 2 mg STK-MED ONCE .ROUTE 12/11/18 06:05 12/11/18 06:06 DC Lidocaine HCl (Lidocaine 2% Vial) 500 mg STK-MED ONCE .ROUTE 12/11/18 06:05 12/11/18 06:06 DC Neostigmine Methylsulfate (Neostigmine) 10 mg STK-MED ONCE .ROUTE 12/11/18 06:05 12/11/18 06:07 DC Dexmedetomidine HCl (Precedex) 200 mcg STK-MED ONCE IV 12/11/18 06:06 12/11/18 06:07 DC Ondansetron HCl (Zofran) 4 mg STK-MED ONCE .ROUTE 12/11/18 06:06 12/11/18 06:07 DC Ropivacaine (Naropin 0.5% 5 Mg/ml Vial) 150 mg STK-MED ONCE .ROUTE 12/11/18 06:06 12/11/18 06:07 DC Ketorolac Tromethamine (Toradol) 15 mg STK-MED ONCE .ROUTE 12/11/18 06:06 12/11/18 06:07 DC Rocuronium Elizabeth (Zemuron) 100 mg STK-MED ONCE IV 12/11/18 06:06 12/11/18 06:07 DC Hydromorphone HCl (Dilaudid) 2 mg STK-MED ONCE .ROUTE 12/11/18 06:06 12/11/18 06:08 DC Fentanyl Citrate (Sublimaze) 100 mcg STK-MED ONCE .ROUTE 12/11/18 06:07 12/11/18 06:08 DC Propofol (Diprivan) 200 mg STK-MED ONCE IV 12/11/18 06:07 12/11/18 06:09 DC Midazolam HCl (Versed) 1 mg STK-MED ONCE .ROUTE 12/11/18 06:07 12/11/18 06:09 DC Dexamethasone Sodium Phosphate (Decadron) 4 mg STK-MED ONCE .ROUTE 12/11/18 06:08 12/11/18 06:09 DC Celecoxib (Celebrex) 100 mg STK-MED ONCE .ROUTE 12/11/18 06:31 12/11/18 06:33 DC Acetaminophen (Tylenol) 500 mg STK-MED ONCE PO 12/11/18 06:31 12/11/18 06:33 DC Gabapentin (Neurontin) 400 mg STK-MED ONCE .ROUTE 12/11/18 06:31 12/11/18 06:33 DC Albuterol/ Ipratropium (Duoneb 0.5 Mg-3 Mg/3 ml Soln) 3 ml STK-MED ONCE IH 12/11/18 06:31 12/11/18 06:33 DC Acetaminophen (Tylenol) 1,000 mg OT PO 12/11/18 07:00 12/11/18 12:43 DC 12/11/18 06:37 Celecoxib (Celebrex) 200 mg OT PO 12/11/18 07:00 12/11/18 12:46 DC 12/11/18 06:36 Gabapentin (Neurontin) 400 mg OT PO 12/11/18 07:00 12/11/18 12:41 DC 12/11/18 06:36 Acetaminophen (Tylenol) 1,000 mg Q6H PO 12/11/18 07:00 01/10/19 06:59 12/11/18 12:24 Celecoxib (Celebrex) 200 mg Q12HR PO 12/11/18 09:00 12/11/18 12:46 DC Gabapentin (Neurontin) 400 mg Q24HRS PO 12/12/18 07:00 12/12/18 07:01 Albuterol/ Ipratropium (Duoneb 0.5 Mg-3 Mg/3 ml Soln) 3 ml OT ONCE IH 12/11/18 07:45 12/11/18 12:41 DC 12/11/18 08:01 Scopolamine (Transderm-Scop) 1 each STK-MED ONCE TD 12/11/18 06:58 12/11/18 06:59 DC Sodium Chloride (Sodium Chloride) 1,000 ml STK-MED ONCE IR 12/11/18 06:58 12/11/18 07:00 DC Sterile Water (Water) 1,000 ml STK-MED ONCE .ROUTE 12/11/18 06:59 12/11/18 07:00 DC Sodium Chloride 100 ml @ ud STK-MED ONCE IV 12/11/18 06:59 12/11/18 07:00 DC Sodium Chloride 250 ml @ ud STK-MED ONCE IV 12/11/18 06:59 12/11/18 07:00 DC Sodium Chloride (NS 3000ml Irr) 3,000 ml STK-MED ONCE IR 12/11/18 06:59 12/11/18 07:00 DC Tranexamic Acid (Tranexamic Acid) 1,000 mg STK-MED ONCE IV 12/11/18 07:03 12/11/18 07:04 DC Hydromorphone HCl (Dilaudid) 0.2 mg Q5MIN PRN IV PAIN 1 - 3 12/11/18 11:00 12/11/18 12:38 DC 12/11/18 11:08 Fentanyl Citrate (Sublimaze) 25 mcg Q5MIN PRN IV PAIN 12/11/18 11:00 12/11/18 12:38 DC Ondansetron HCl (Zofran) 4 mg PRN PRN IV nv 12/11/18 11:00 12/11/18 12:39 DC Promethazine HCl (Phenergan) 6.25 mg PRN PRN IV NAUSEA / VOMITING 12/11/18 11:00 12/11/18 12:41 DC Diphenhydramine HCl (Benadryl) 25 mg Q5MIN PRN IV NAUSEA / VOMITING 12/11/18 11:00 12/11/18 12:38 DC Albuterol Sulfate (Ventolin) 2.5 mg OT PRN IH WHEEZING 12/11/18 11:00 12/11/18 12:46 DC Tramadol HCl (Ultram) 50 mg Q4HR PO 12/11/18 12:00 01/10/19 11:59 12/11/18 12:23 Tramadol HCl (Ultram) 100 mg Q4HR PRN PO PAIN 4 - 6 12/11/18 11:00 01/10/19 10:59 12/11/18 15:45 Rivaroxaban (Xarelto) 10 mg DAILY PO 12/12/18 09:00 01/11/19 08:59 Docusate Sodium (Colace) 100 mg DAILY PO 12/12/18 09:00 01/11/19 08:59 Throat Lozenges (Cepacol Sore Throat Lozenge) 1 each PRN PRN MM SORE THROAT 12/11/18 11:00 01/10/19 10:59 Famotidine (Pepcid) 20 mg DAILY PO 12/12/18 09:00 01/11/19 08:59 Vancomycin HCl 1 gm/Sodium Chloride 250 ml @ 175 mls/hr Q12H IV 12/11/18 19:00 12/12/18 20:26 Hydromorphone HCl (Dilaudid) 1 mg Q4H PRN IV PAIN 7 - 10 12/11/18 11:00 01/10/19 10:59 Albuterol Sulfate (Ventolin) 2.5 mg TID PRN IH WHEEZING 12/11/18 11:00 01/10/19 10:59 Atorvastatin Calcium (Lipitor) 20 mg HS PO 12/11/18 21:00 01/10/19 20:59 Bupropion HCl (Wellbutrin Xl) 150 mg DAILY PO 12/12/18 09:00 01/11/19 08:59 Pantoprazole Sodium (Protonix) 40 mg DAILY PO 12/12/18 09:00 01/11/19 08:59 Verapamil HCl (Calan) 240 mg DAILY PO 12/12/18 09:00 01/11/19 08:59 Vancomycin HCl 1500 mg/Sodium Chloride 250 ml @ 175 mls/hr OT ONCE IV 12/11/18 08:24 12/11/18 12:47 DC Course Sepsis Screening Results: Posi: NEGATIVE Sepsis Qualifier/Stage: NO DEFINITE RISK Duration or Total Time Spent w: 2 HRS Vitals & review Data Vital Sign - Last 24 Hours 12/11/18 12/11/18 12/11/18 12/11/18 05:58 05:58 07:09 07:16 Temp 98.2 Pulse 90 82 76 Resp 16 16 18 B/P (MAP) 153/99 (117) 172/84 (113) 163/72 (102) Pulse Ox 92 94 93 O2 Delivery Room Air Room Air Nasal Canula Nasal Canula O2 Flow Rate 3 2 12/11/18 12/11/18 12/11/18 12/11/18 07:26 08:00 08:00 10:31 Temp 97.7 Pulse 77 88 71 85 Resp 16 18 18 16 B/P (MAP) 152/87 (108) 137/64 (88) Pulse Ox 94 93 93 98 O2 Delivery Nasal Canula Non-Rebreather O2 Flow Rate 2 15 12/11/18 12/11/18 12/11/18 12/11/18 10:31 10:41 10:51 11:01 Temp 97.2 97.8 98.0 Pulse 68 69 79 Resp 17 17 18 B/P (MAP) 134/72 (92) 137/75 (95) 137/81 (99) Pulse Ox 99 98 96 O2 Delivery Non-Rebreather Non-Rebreather Nasal Canula O2 Flow Rate 15 10 5 3 12/11/18 12/11/18 12/11/18 12/11/18 11:21 11:30 13:51 14:46 Temp 97.6 Pulse 71 87 Resp 18 18 18 B/P (MAP) 134/79 (97) Pulse Ox 95 95 96 O2 Delivery Nasal Canula Nasal Cannula Nasal Cannula O2 Flow Rate 3 1.00 1.00 FiO2 24 Current Medications Medications (Trade) Dose Ordered Sig/Fani PRN Reason Start Time Stop Time Status Last Admin Acetaminophen (Tylenol) 1,000 mg Q6H 12/11/18 07:00 01/10/19 06:59 12/11/18 12:24 Albuterol Sulfate (Ventolin) 2.5 mg TID PRN WHEEZING 12/11/18 11:00 01/10/19 10:59 Atorvastatin Calcium (Lipitor) 20 mg HS 12/11/18 21:00 01/10/19 20:59 Bupropion HCl (Wellbutrin Xl) 150 mg DAILY 12/12/18 09:00 01/11/19 08:59 Docusate Sodium (Colace) 100 mg DAILY 12/12/18 09:00 01/11/19 08:59 Famotidine (Pepcid) 20 mg DAILY 12/12/18 09:00 01/11/19 08:59 Gabapentin (Neurontin) 400 mg Q24HRS 12/12/18 07:00 12/12/18 07:01 Hydromorphone HCl (Dilaudid) 1 mg Q4H PRN PAIN 7 - 12/11/18 11:00 01/10/19 10:59 Pantoprazole Sodium (Protonix) 40 mg DAILY 12/12/18 09:00 01/11/19 08:59 Rivaroxaban (Xarelto) 10 mg DAILY 12/12/18 09:00 01/11/19 08:59 Throat Lozenges (Cepacol Sore Throat Lozenge) 1 each PRN PRN SORE THROAT 12/11/18 11:00 01/10/19 10:59 Tramadol HCl (Ultram) 50 mg Q4HR 12/11/18 12:00 01/10/19 11:59 12/11/18 12:23 Tramadol HCl (Ultram) 100 mg Q4HR PRN PAIN 4 - 6 12/11/18 11:00 01/10/19 10:59 12/11/18 15:45 Vancomycin HCl 1 gm/Sodium Chloride 250 ml @ 175 mls/hr Q12H 12/11/18 19:00 12/12/18 20:26 Verapamil HCl (Calan) 240 mg DAILY 12/12/18 09:00 01/11/19 08:59 Sepsis Infection Criteria Pres: None LEVEL 1 SEPSIS INFECTION CRITE: ABX Therapy, Recent Invasive Procedure LEVEL 2-SIRS (LIST ALL THAT AP: None/Not assessed Cardiovascular Evidence: Not Assessed or None Hematologic Evidence: None/Not assessed Hepatic Evidence: None/Not assessed Metabolic Evidence: None/Not assessed Neurological Evidence: None/Not assessed Respiratory Evidence: None/Not assessed Renal Evidence: None/Not assessed O2 Sat by Pulse Oximetry: 93 Oxygen Flow Rate: 1.00 Assessment/Plan Assessment/Plan Assessment/Plan 1. OA left knee: s/p Left TKA with Ortho. Cont PT. Cont pain control. 2. HLD: cont Statin 3. Asthma: cont ICS, added Nebs PRN. No wheezing, no respiratory distress. 4. PPx: Xarelto, PPI 5. Insomnia: Ambien Q PRN GUDELIA SIMMONS MD Dec 12, 2018 13:57
[2018-12-12] MEDS ORDERED: AMBIEN PO PRN (14:00)
[2018-12-12] MEDS: LIPITOR PO SCH (20:17)
[2018-12-12] MEDS: DILAUDID IV PRN (23:49)
[2018-12-13] MEDS: TYLENOL PO SCH ×2 (00:58→06:41)
[2018-12-13] MEDS: ULTRAM PO SCH ×3 (03:54→11:35)
[2018-12-13 04:00] VITALS: BP 106/60
[2018-12-13 05:02] LABS: HEMOGLOBIN 11.1 g/dL (12.0-15.0); MEAN CELL HGB 29.8 pg (26-34); MEAN CELL HGB CONCENTRATION 31.6 g/dL (33-37); MEAN CORP VOLUME 94.4 fL (78-100); MEAN PLATELET VOLUME 9.4 fL (7.8-11.0); RED CELL DISTRIBUTION WIDTH 15.1 % (11.5-14.5); WHITE BLOOD CELL 9.4 10^3/uL (4.5-11.0)
[2018-12-13] MEDS: DILAUDID IV PRN (05:44)
[2018-12-13] MEDS: LACTATED RINGERS 1,000 ML IV SCH (06:00)
[2018-12-13 07:28] VITALS: BP 109/66
[2018-12-13] MEDS: XARELTO PO SCH (08:40)
[2018-12-13] MEDS: COLACE PO SCH (08:40)
[2018-12-13] MEDS: PEPCID PO SCH (08:41)
[2018-12-13] MEDS: WELLBUTRIN XL PO SCH (08:41)
[2018-12-13] MEDS: CALAN PO SCH (08:41)
[2018-12-13] MEDS: PROTONIX PO SCH (08:41)
--- NOTE | 2018-12-13 10:01 | PRM.PN ---
Subjective Subjective Date: Dec 13, 2018 Time: 10:00 Subjective Pain ok Able to walk stairs VSS Hgb 11 postop anemia from surgery expected Will dc Patient History: Alzheimer's disease PATERNAL AUNT, Asthma 33 FATHER, , Age:72 Cerebrovascular disorder PATERNAL GRANDMOTHER, Chronic obstructive pulmonary disease 33 FATHER, , Age:72 Congestive heart failure 33 FATHER, , Age:72 Diabetes mellitus PATERNAL GRANDMOTHER, Hypertension 32 MOTHER, , Age:52 33 FATHER, , Age:72 No known health problems V19 CHILD No Family History of: Diabetes insipidus Parkinson's disease VTE VTE Risk Total Score: >5 VTE Risk Score VTE Risk: Score 0-1 = Low Risk (Aggressive mobilization; early ambulation; no VTE prophylaxis required) Score 2: Moderate Risk (Intermittent/Pneumatic Compression Device OR Lovenox/Heparin/Coumadin) Score 3-4: High Risk (Intermittent/Pneumatic Compression Device AND Lovenox/Heparin/Coumadin) Score > or =5: Highest Risk (Intermittent/Pneumatic Compression Device AND Lovenox/Heparin/Coumadin) Review of Systems Allergies: Coded Allergies: Penicillins (Unverified Allergy, Severe, CAN'T BREATH, SWELLS THROAT SHUT, SEVERE HEADACHE,RASH, 12/05/18) Latex, Natural Rubber (Verified Adverse Reaction, Severe, PELLS SKIN OFF, 12/05/18) Scheduled Ascorbic Acid (Vitamin C), 1,000 MG PO DAILY24, (Reported) Atorvastatin 20MG (Lipitor 20MG), 1 TAB PO HS, (Reported) Bupropion Hcl (Wellbutrin Xl), 1 TAB PO DAILY, (Reported) Fluticasone/Umeclidin/Vilanter (Trelegy Ellipta 100-62.5-25), 1 PUFF PO DAILY24, (Reported) Pantoprazole Sodium (Pantoprazole Sodium), 1 TAB PO DAILY, (Reported) Verapamil Hcl (Verapamil Er), 1 CAP PO DAILY, (Reported) [Allergy Shots], 1 VIAL SQ Q7D, (Reported) Scheduled PRN Albuterol Sulfate (Albuterol Sulfate), 2.5 MG IH TID PRN for WHEEZING, (Reported) Ipratropium/Albuterol Sulfate (Combivent Respimat Inhal [place]), Unknown Dose IH RTQID PRN for SHORTNESS OF BREATH, (Reported) Objective Vitals and I/O Vital Sign - Last 24 Hours 12/11/18 12/11/18 12/11/18 12/11/18 05:58 05:58 07:09 07:16 Temp 98.2 Pulse 90 82 76 Resp 16 16 18 B/P (MAP) 153/99 (117) 172/84 (113) 163/72 (102) Pulse Ox 92 94 93 O2 Delivery Room Air Room Air Nasal Canula Nasal Canula O2 Flow Rate 3 2 12/11/18 12/11/18 12/11/18 12/11/18 07:26 08:00 08:00 10:31 Temp 97.7 Pulse 77 88 71 85 Resp 16 18 18 16 B/P (MAP) 152/87 (108) 137/64 (88) Pulse Ox 94 93 93 98 O2 Delivery Nasal Canula Non-Rebreather O2 Flow Rate 2 15 12/11/18 12/11/18 12/11/18 12/11/18 10:31 10:41 10:51 11:01 Temp 97.2 97.8 98.0 Pulse 68 69 79 Resp 17 17 18 B/P (MAP) 134/72 (92) 137/75 (95) 137/81 (99) Pulse Ox 99 98 96 O2 Delivery Non-Rebreather Non-Rebreather Nasal [place] O2 Flow Rate 15 10 5 3 12/11/18 12/11/18 12/11/18 12/11/18 11:21 11:30 13:51 14:46 Temp 97.6 Pulse 71 87 Resp 18 18 18 B/P (MAP) 134/79 (97) Pulse Ox 95 95 96 O2 Delivery Nasal Canula Nasal Cannula Nasal Cannula O2 Flow Rate 3 1.00 1.00 FiO2 24 General: Alert, Oriented X3, Cooperative, No acute distress HEENT: Atraumatic, PERRLA, EOMI, Mucous membr. moist/pink Neck: Supple, No JVD Lungs: Clear to auscultation, Normal air movement Heart: Regular rate, Normal S1, Normal S2, No murmurs Abdomen: Normal bowel sounds, Soft, No tenderness Extremities: Other (Dressing, supportive devices in place following L TKA) Skin: No rashes, No breakdown, No significant lesion Neuro: Normal speech, Strength at 5/5 X4 ext, Normal tone, Sensation intact, Cranial nerves 3-12 NL Psych/Mental Status: Mental status NL, Mood NL All Results(Lab/Rad) Current Medications Medications (Trade) Dose Ordered Sig/Fani Route PRN Reason Start Time Stop Time Status Last Admin Dose Admin Vancomycin HCl 1500 mg/Sodium Chloride 100 ml @ 100 mls/hr OT ONCE IV 12/11/18 07:00 12/11/18 12:46 DC 12/11/18 07:03 Mupirocin (Bactroban Ointment) 1 gm OT ONCE TP 12/11/18 06:00 12/11/18 12:48 DC 12/11/18 06:17 Vancomycin HCl 1 ml @ ud STK-MED ONCE .ROUTE 12/11/18 05:09 12/11/18 05:10 DC Sodium Chloride 250 ml @ ud STK-MED ONCE IV 12/11/18 05:09 12/11/18 05:10 DC Bupivacaine HCl (Sensorcaine 0.5% Vial) 5 mg STK-MED ONCE .ROUTE 12/11/18 06:05 12/11/18 06:06 DC Ropivacaine (Naropin 0.2% 40 Mg/20 ml Vial) 2 mg STK-MED ONCE .ROUTE 12/11/18 06:05 12/11/18 06:06 DC Lidocaine HCl (Lidocaine 2% Vial) 500 mg STK-MED ONCE .ROUTE 12/11/18 06:05 12/11/18 06:06 DC Neostigmine Methylsulfate (Neostigmine) 10 mg STK-MED ONCE .ROUTE 12/11/18 06:05 12/11/18 06:07 DC Dexmedetomidine HCl (Precedex) 200 mcg STK-MED ONCE IV 12/11/18 06:06 12/11/18 06:07 DC Ondansetron HCl (Zofran) 4 mg STK-MED ONCE .ROUTE 12/11/18 06:06 12/11/18 06:07 DC Ropivacaine (Naropin 0.5% 5 Mg/ml Vial) 150 mg STK-MED ONCE .ROUTE 12/11/18 06:06 12/11/18 06:07 DC Ketorolac Tromethamine (Toradol) 15 mg STK-MED ONCE .ROUTE 12/11/18 06:06 12/11/18 06:07 DC Rocuronium Savage (Zemuron) 100 mg STK-MED ONCE IV 12/11/18 06:06 12/11/18 06:07 DC Hydromorphone HCl (Dilaudid) 2 mg STK-MED ONCE .ROUTE 12/11/18 06:06 12/11/18 06:08 DC Fentanyl Citrate (Sublimaze) 100 mcg STK-MED ONCE .ROUTE 12/11/18 06:07 12/11/18 06:08 DC Propofol (Diprivan) 200 mg STK-MED ONCE IV 12/11/18 06:07 12/11/18 06:09 DC Midazolam HCl (Versed) 1 mg STK-MED ONCE .ROUTE 12/11/18 06:07 12/11/18 06:09 DC Dexamethasone Sodium Phosphate (Decadron) 4 mg STK-MED ONCE .ROUTE 12/11/18 06:08 12/11/18 06:09 DC Celecoxib (Celebrex) 100 mg STK-MED ONCE .ROUTE 12/11/18 06:31 12/11/18 06:33 DC Acetaminophen (Tylenol) 500 mg STK-MED ONCE PO 12/11/18 06:31 12/11/18 06:33 DC Gabapentin (Neurontin) 400 mg STK-MED ONCE .ROUTE 12/11/18 06:31 12/11/18 06:33 DC Albuterol/ Ipratropium (Duoneb 0.5 Mg-3 Mg/3 ml Soln) 3 ml STK-MED ONCE IH 12/11/18 06:31 12/11/18 06:33 DC Acetaminophen (Tylenol) 1,000 mg OT PO 12/11/18 07:00 12/11/18 12:43 DC 12/11/18 06:37 Celecoxib (Celebrex) 200 mg OT PO 12/11/18 07:00 12/11/18 12:46 DC 12/11/18 06:36 Gabapentin (Neurontin) 400 mg OT PO 12/11/18 07:00 12/11/18 12:41 DC 12/11/18 06:36 Acetaminophen (Tylenol) 1,000 mg Q6H PO 12/11/18 07:00 01/10/19 06:59 12/11/18 12:24 Celecoxib (Celebrex) 200 mg Q12HR PO 12/11/18 09:00 12/11/18 12:46 DC Gabapentin (Neurontin) 400 mg Q24HRS PO 12/12/18 07:00 12/12/18 07:01 Albuterol/ Ipratropium (Duoneb 0.5 Mg-3 Mg/3 ml Soln) 3 ml OT ONCE IH 12/11/18 07:45 12/11/18 12:41 DC 12/11/18 08:01 Scopolamine (Transderm-Scop) 1 each STK-MED ONCE TD 12/11/18 06:58 12/11/18 06:59 DC Sodium Chloride (Sodium Chloride) 1,000 ml STK-MED ONCE IR 12/11/18 06:58 12/11/18 07:00 DC Sterile Water (Water) 1,000 ml STK-MED ONCE .ROUTE 12/11/18 06:59 12/11/18 07:00 DC Sodium Chloride 100 ml @ ud STK-MED ONCE IV 12/11/18 06:59 12/11/18 07:00 DC Sodium Chloride 250 ml @ ud STK-MED ONCE IV 12/11/18 06:59 12/11/18 07:00 DC Sodium Chloride (NS 3000ml Irr) 3,000 ml STK-MED ONCE IR 12/11/18 06:59 12/11/18 07:00 DC Tranexamic Acid (Tranexamic Acid) 1,000 mg STK-MED ONCE IV 12/11/18 07:03 12/11/18 07:04 DC Hydromorphone HCl (Dilaudid) 0.2 mg Q5MIN PRN IV PAIN 1 - 3 12/11/18 11:00 12/11/18 12:38 DC 12/11/18 11:08 Fentanyl Citrate (Sublimaze) 25 mcg Q5MIN PRN IV PAIN 12/11/18 11:00 12/11/18 12:38 DC Ondansetron HCl (Zofran) 4 mg PRN PRN IV nv 12/11/18 11:00 12/11/18 12:39 DC Promethazine HCl (Phenergan) 6.25 mg PRN PRN IV NAUSEA / VOMITING 12/11/18 11:00 12/11/18 12:41 DC Diphenhydramine HCl (Benadryl) 25 mg Q5MIN PRN IV NAUSEA / VOMITING 12/11/18 11:00 12/11/18 12:38 DC Albuterol Sulfate (Ventolin) 2.5 mg OT PRN IH WHEEZING 12/11/18 11:00 12/11/18 12:46 DC Tramadol HCl (Ultram) 50 mg Q4HR PO 12/11/18 12:00 01/10/19 11:59 12/11/18 12:23 Tramadol HCl (Ultram) 100 mg Q4HR PRN PO PAIN 4 - 6 12/11/18 11:00 01/10/19 10:59 12/11/18 15:45 Rivaroxaban (Xarelto) 10 mg DAILY PO 12/12/18 09:00 01/11/19 08:59 Docusate Sodium (Colace) 100 mg DAILY PO 12/12/18 09:00 01/11/19 08:59 Throat Lozenges (Cepacol Sore Throat Lozenge) 1 each PRN PRN MM SORE THROAT 12/11/18 11:00 01/10/19 10:59 Famotidine (Pepcid) 20 mg DAILY PO 12/12/18 09:00 01/11/19 08:59 Vancomycin HCl 1 gm/Sodium Chloride 250 ml @ 175 mls/hr Q12H IV 12/11/18 19:00 12/12/18 20:26 Hydromorphone HCl (Dilaudid) 1 mg Q4H PRN IV PAIN 7 - 10 12/11/18 11:00 01/10/19 10:59 Albuterol Sulfate (Ventolin) 2.5 mg TID PRN IH WHEEZING 12/11/18 11:00 01/10/19 10:59 Atorvastatin Calcium (Lipitor) 20 mg HS PO 12/11/18 21:00 01/10/19 20:59 Bupropion HCl (Wellbutrin Xl) 150 mg DAILY PO 12/12/18 09:00 01/11/19 08:59 Pantoprazole Sodium (Protonix) 40 mg DAILY PO 12/12/18 09:00 01/11/19 08:59 Verapamil HCl (Calan) 240 mg DAILY PO 12/12/18 09:00 01/11/19 08:59 Vancomycin HCl 1500 mg/Sodium Chloride 250 ml @ 175 mls/hr OT ONCE IV 12/11/18 08:24 12/11/18 12:47 DC Course Sepsis Screening Results: Posi: NEGATIVE Sepsis Qualifier/Stage: NO DEFINITE RISK Duration or Total Time Spent w: 2 HRS Vitals & review Data Vital Sign - Last 24 Hours 12/11/18 12/11/18 12/11/18 12/11/18 05:58 05:58 07:09 07:16 Temp 98.2 Pulse 90 82 76 Resp 16 16 18 B/P (MAP) 153/99 (117) 172/84 (113) 163/72 (102) Pulse Ox 92 94 93 O2 Delivery Room Air Room Air Nasal Canula Nasal Canula O2 Flow Rate 3 2 12/11/18 12/11/18 12/11/18 12/11/18 07:26 08:00 08:00 10:31 Temp 97.7 Pulse 77 88 71 85 Resp 16 18 18 16 B/P (MAP) 152/87 (108) 137/64 (88) Pulse Ox 94 93 93 98 O2 Delivery Nasal [place] Non-Rebreather O2 Flow Rate 2 15 12/11/18 12/11/18 12/11/18 12/11/18 10:31 10:41 10:51 11:01 Temp 97.2 97.8 98.0 Pulse 68 69 79 Resp 17 17 18 B/P (MAP) 134/72 (92) 137/75 (95) 137/81 (99) Pulse Ox 99 98 96 O2 Delivery Non-Rebreather Non-Rebreather Nasal [place] O2 Flow Rate 15 10 5 3 12/11/18 12/11/18 12/11/18 12/11/18 11:21 11:30 13:51 14:46 Temp 97.6 Pulse 71 87 Resp 18 18 18 B/P (MAP) 134/79 (97) Pulse Ox 95 95 96 O2 Delivery Nasal [place] Nasal Cannula Nasal Cannula O2 Flow Rate 3 1.00 1.00 FiO2 24 Current Medications Medications (Trade) Dose Ordered Sig/Fani PRN Reason Start Time Stop Time Status Last Admin Acetaminophen (Tylenol) 1,000 mg Q6H 12/11/18 07:00 01/10/19 06:59 12/11/18 12:24 Albuterol Sulfate (Ventolin) 2.5 mg TID PRN WHEEZING 12/11/18 11:00 01/10/19 10:59 Atorvastatin Calcium (Lipitor) 20 mg HS 7/29/19 21:00 01/10/19 20:59 Bupropion HCl (Wellbutrin Xl) 150 mg DAILY 12/12/18 09:00 01/11/19 08:59 Docusate Sodium (Colace) 100 mg DAILY 12/12/18 09:00 01/11/19 08:59 Famotidine (Pepcid) 20 mg DAILY 12/12/18 09:00 01/11/19 08:59 Gabapentin (Neurontin) 400 mg Q24HRS 12/12/18 07:00 12/12/18 07:01 Hydromorphone HCl (Dilaudid) 1 mg Q4H PRN PAIN 7 - 10 12/11/18 11:00 01/10/19 10:59 Pantoprazole Sodium (Protonix) 40 mg DAILY 12/12/18 09:00 01/11/19 08:59 Rivaroxaban (Xarelto) 10 mg DAILY 12/12/18 09:00 01/11/19 08:59 Throat Lozenges (Cepacol Sore Throat Lozenge) 1 each PRN PRN SORE THROAT 12/11/18 11:00 01/10/19 10:59 Tramadol HCl (Ultram) 50 mg Q4HR 12/11/18 12:00 01/10/19 11:59 12/11/18 12:23 Tramadol HCl (Ultram) 100 mg Q4HR PRN PAIN 4 - 6 12/11/18 11:00 01/10/19 10:59 12/11/18 15:45 Vancomycin HCl 1 gm/Sodium Chloride 250 ml @ 175 mls/hr Q12H 12/11/18 19:00 12/12/18 20:26 Verapamil HCl (Calan) 240 mg DAILY 12/12/18 09:00 01/11/19 08:59 Sepsis Infection Criteria Pres: None LEVEL 1 SEPSIS INFECTION CRITE: ABX Therapy, Recent Invasive Procedure LEVEL 2-SIRS (LIST ALL THAT AP: None/Not assessed Cardiovascular Evidence: Not Assessed or None Hematologic Evidence: None/Not assessed Hepatic Evidence: None/Not assessed Metabolic Evidence: None/Not assessed Neurological Evidence: None/Not assessed Respiratory Evidence: None/Not assessed Renal Evidence: None/Not assessed O2 Sat by Pulse Oximetry: 92 Oxygen Flow Rate: 2.00 Assessment/Plan Assessment/Plan Assessment/Plan 1. OA left knee: s/p Left TKA with Ortho. Cont PT. Cont pain control. 2. HLD: cont Statin 3. Asthma: cont ICS, added Nebs PRN. No wheezing, no respiratory distress. 4. PPx: Xarelto, PPI 5. Insomnia: Ambien QHS PRN Plan 1. OA left knee: s/p Left TKA with Ortho. Cont PT. Cont pain control. 2. HLD: cont Statin 3. Asthma: cont ICS, added Nebs PRN. No wheezing, no respiratory distress. 4. PPx: Xarelto, PPI 5. Insomnia: Ambien QHS PRN CLEO AGUILERA MD Dec 13, 2018 10:01
--- NOTE | 2018-12-13 10:50 | PRM.PN ---
Subjective Subjective Date: Dec 13, 2018 Time: 10:47 Subjective Pt doing ok today. No new complaints. Still with a significant amount of pain but meds working. Ambulating well. Caleb po. No other overnight events. Patient History: Alzheimer's disease PATERNAL AUNT, Asthma 33 FATHER, , Age:72 Cerebrovascular disorder PATERNAL GRANDMOTHER, Chronic obstructive pulmonary disease 33 FATHER, , Age:72 Congestive heart failure 33 FATHER, , Age:72 Diabetes mellitus PATERNAL GRANDMOTHER, Hypertension 32 MOTHER, , Age:52 33 FATHER, , Age:72 No known health problems V19 CHILD No Family History of: Diabetes insipidus Parkinson's disease VTE VTE Risk Total Score: >5 VTE Risk Score VTE Risk: Score 0-1 = Low Risk (Aggressive mobilization; early ambulation; no VTE prophylaxis required) Score 2: Moderate Risk (Intermittent/Pneumatic Compression Device OR Lovenox/Heparin/Coumadin) Score 3-4: High Risk (Intermittent/Pneumatic Compression Device AND Lovenox/Heparin/Coumadin) Score > or =5: Highest Risk (Intermittent/Pneumatic Compression Device AND Lovenox/Heparin/Coumadin) Review of Systems Constitutional: No: Fever, Chills, Sweats, Weakness, Malaise, Other Respiratory: No: Cough, Dry, Shortness of breath, SOB with excertion, Wheezing, Hemoptysis, Pleuritic Pain, Sputum, Wheezing, Other Cardiovascular: No: Chest Pain, Palpitations, Orthopnea, Paroxysmal Noc. Dyspnea, Edema, Lt Headedness, Other Gastrointestinal: No: Nausea, Vomiting, Abdominal Pain, Diarrhea, Constipation, Melena, Hematochezia, Other Genitourinary: No Dysuria, No Frequency, No Incontinence, No Hematuria, No Retention, No Other Musculoskeletal: leg pain Neurological: No: Weakness, Numbness, Incoordination, Change in speech, Confusion, Seizures, Other Allergies: Coded Allergies: Penicillins (Unverified Allergy, Severe, CAN'T BREATH, SWELLS THROAT SHUT, SEVERE HEADACHE,RASH, 12/05/18) Latex, Natural Rubber (Verified Adverse Reaction, Severe, PELLS SKIN OFF, 12/05/18) Scheduled Ascorbic Acid (Vitamin C), 1,000 MG PO DAILY24, (Reported) Atorvastatin 20MG (Lipitor 20MG), 1 TAB PO HS, (Reported) Bupropion Hcl (Wellbutrin Xl), 1 TAB PO DAILY, (Reported) Fluticasone/Umeclidin/Vilanter (Trelegy Ellipta 100-62.5-25), 1 PUFF PO DAILY24, (Reported) Pantoprazole Sodium (Pantoprazole Sodium), 1 TAB PO DAILY, (Reported) Verapamil Hcl (Verapamil Er), 1 CAP PO DAILY, (Reported) [Allergy Shots], 1 VIAL SQ Q7D, (Reported) Scheduled PRN Albuterol Sulfate (Albuterol Sulfate), 2.5 MG IH TID PRN for WHEEZING, (Reported) Ipratropium/Albuterol Sulfate (Combivent Respimat Inhal [place]), Unknown Dose IH RTQID PRN for SHORTNESS OF BREATH, (Reported) Objective Vitals and I/O Vital Sign - Last 24 Hours 12/11/18 12/11/18 12/11/18 12/11/18 05:58 05:58 07:09 07:16 Temp 98.2 Pulse 90 82 76 Resp 16 16 18 B/P (MAP) 153/99 (117) 172/84 (113) 163/72 (102) Pulse Ox 92 94 93 O2 Delivery Room Air Room Air Nasal Canula Nasal Canula O2 Flow Rate 3 2 12/11/18 12/11/18 12/11/18 12/11/18 07:26 08:00 08:00 10:31 Temp 97.7 Pulse 77 88 71 85 Resp 16 18 18 16 B/P (MAP) 152/87 (108) 137/64 (88) Pulse Ox 94 93 93 98 O2 Delivery Nasal Canula Non-Rebreather O2 Flow Rate 2 15 12/11/18 12/11/18 12/11/18 12/11/18 10:31 10:41 10:51 11:01 Temp 97.2 97.8 98.0 Pulse 68 69 79 Resp 17 17 18 B/P (MAP) 134/72 (92) 137/75 (95) 137/81 (99) Pulse Ox 99 98 96 O2 Delivery Non-Rebreather Non-Rebreather Nasal [place]ula O2 Flow Rate 15 10 5 3 12/11/18 12/11/18 12/11/18 12/11/18 11:21 11:30 13:51 14:46 Temp 97.6 Pulse 71 87 Resp 18 18 18 B/P (MAP) 134/79 (97) Pulse Ox 95 95 96 O2 Delivery Nasal Canula Nasal Cannula Nasal Cannula O2 Flow Rate 3 1.00 1.00 FiO2 24 General: Alert, Oriented X3, Cooperative, No acute distress HEENT: Atraumatic, PERRLA, EOMI, Mucous membr. moist/pink Neck: Supple, No JVD Lungs: Clear to auscultation, Normal air movement Heart: Regular rate, Normal S1, Normal S2, No murmurs Abdomen: Normal bowel sounds, Soft, No tenderness Extremities: Other (Dressing, supportive devices in place following L TKA) Skin: No rashes, No breakdown, No significant lesion Neuro: Normal speech, Strength at 5/5 X4 ext, Normal tone, Sensation intact, Cranial nerves 3-12 NL Psych/Mental Status: Mental status NL, Mood NL All Results(Lab/Rad) Current Medications Medications (Trade) Dose Ordered Sig/Fani Route PRN Reason Start Time Stop Time Status Last Admin Dose Admin Vancomycin HCl 1500 mg/Sodium Chloride 100 ml @ 100 mls/hr OT ONCE IV 12/11/18 07:00 12/11/18 12:46 DC 12/11/18 07:03 Mupirocin (Bactroban Ointment) 1 gm OT ONCE TP 12/11/18 06:00 12/11/18 12:48 DC 12/11/18 06:17 Vancomycin HCl 1 ml @ ud STK-MED ONCE .ROUTE 12/11/18 05:09 12/11/18 05:10 DC Sodium Chloride 250 ml @ ud STK-MED ONCE IV 12/11/18 05:09 12/11/18 05:10 DC Bupivacaine HCl (Sensorcaine 0.5% Vial) 5 mg STK-MED ONCE .ROUTE 12/11/18 06:05 12/11/18 06:06 DC Ropivacaine (Naropin 0.2% 40 Mg/20 ml Vial) 2 mg STK-MED ONCE .ROUTE 12/11/18 06:05 12/11/18 06:06 DC Lidocaine HCl (Lidocaine 2% Vial) 500 mg STK-MED ONCE .ROUTE 12/11/18 06:05 12/11/18 06:06 DC Neostigmine Methylsulfate (Neostigmine) 10 mg STK-MED ONCE .ROUTE 12/11/18 06:05 12/11/18 06:07 DC Dexmedetomidine HCl (Precedex) 200 mcg STK-MED ONCE IV 12/11/18 06:06 12/11/18 06:07 DC Ondansetron HCl (Zofran) 4 mg STK-MED ONCE .ROUTE 12/11/18 06:06 12/11/18 06:07 DC Ropivacaine (Naropin 0.5% 5 Mg/ml Vial) 150 mg STK-MED ONCE .ROUTE 12/11/18 06:06 12/11/18 06:07 DC Ketorolac Tromethamine (Toradol) 15 mg STK-MED ONCE .ROUTE 12/11/18 06:06 12/11/18 06:07 DC Rocuronium [place] (Zemuron) 100 mg STK-MED ONCE IV 12/11/18 06:06 12/11/18 06:07 DC Hydromorphone HCl (Dilaudid) 2 mg STK-MED ONCE .ROUTE 12/11/18 06:06 12/11/18 06:08 DC Fentanyl Citrate (Sublimaze) 100 mcg STK-MED ONCE .ROUTE 12/11/18 06:07 12/11/18 06:08 DC Propofol (Diprivan) 200 mg STK-MED ONCE IV 12/11/18 06:07 12/11/18 06:09 DC Midazolam HCl (Versed) 1 mg STK-MED ONCE .ROUTE 12/11/18 06:07 12/11/18 06:09 DC Dexamethasone Sodium Phosphate (Decadron) 4 mg STK-MED ONCE .ROUTE 12/11/18 06:08 12/11/18 06:09 DC Celecoxib (Celebrex) 100 mg STK-MED ONCE .ROUTE 12/11/18 06:31 12/11/18 06:33 DC Acetaminophen (Tylenol) 500 mg STK-MED ONCE PO 12/11/18 06:31 12/11/18 06:33 DC Gabapentin (Neurontin) 400 mg STK-MED ONCE .ROUTE 12/11/18 06:31 12/11/18 06:33 DC Albuterol/ Ipratropium (Duoneb 0.5 Mg-3 Mg/3 ml Soln) 3 ml STK-MED ONCE IH 12/11/18 06:31 12/11/18 06:33 DC Acetaminophen (Tylenol) 1,000 mg OT PO 12/11/18 07:00 12/11/18 12:43 DC 12/11/18 06:37 Celecoxib (Celebrex) 200 mg OT PO 12/11/18 07:00 12/11/18 12:46 DC 12/11/18 06:36 Gabapentin (Neurontin) 400 mg OT PO 12/11/18 07:00 12/11/18 12:41 DC 12/11/18 06:36 Acetaminophen (Tylenol) 1,000 mg Q6H PO 12/11/18 07:00 01/10/19 06:59 12/11/18 12:24 Celecoxib (Celebrex) 200 mg Q12HR PO 12/11/18 09:00 12/11/18 12:46 DC Gabapentin (Neurontin) 400 mg Q24HRS PO 12/12/18 07:00 12/12/18 07:01 Albuterol/ Ipratropium (Duoneb 0.5 Mg-3 Mg/3 ml Soln) 3 ml OT ONCE IH 12/11/18 07:45 12/11/18 12:41 DC 12/11/18 08:01 Scopolamine (Transderm-Scop) 1 each STK-MED ONCE TD 12/11/18 06:58 12/11/18 06:59 DC Sodium Chloride (Sodium Chloride) 1,000 ml STK-MED ONCE IR 12/11/18 06:58 12/11/18 07:00 DC Sterile Water (Water) 1,000 ml STK-MED ONCE .ROUTE 12/11/18 06:59 12/11/18 07:00 DC Sodium Chloride 100 ml @ ud STK-MED ONCE IV 12/11/18 06:59 12/11/18 07:00 DC Sodium Chloride 250 ml @ ud STK-MED ONCE IV 12/11/18 06:59 12/11/18 07:00 DC Sodium Chloride (NS 3000ml Irr) 3,000 ml STK-MED ONCE IR 12/11/18 06:59 12/11/18 07:00 DC Tranexamic Acid (Tranexamic Acid) 1,000 mg STK-MED ONCE IV 12/11/18 07:03 12/11/18 07:04 DC Hydromorphone HCl (Dilaudid) 0.2 mg Q5MIN PRN IV PAIN 1 - 3 12/11/18 11:00 12/11/18 12:38 DC 12/11/18 11:08 Fentanyl Citrate (Sublimaze) 25 mcg Q5MIN PRN IV PAIN 12/11/18 11:00 12/11/18 12:38 DC Ondansetron HCl (Zofran) 4 mg PRN PRN IV nv 12/11/18 11:00 12/11/18 12:39 DC Promethazine HCl (Phenergan) 6.25 mg PRN PRN IV NAUSEA / VOMITING 12/11/18 11:00 12/11/18 12:41 DC Diphenhydramine HCl (Benadryl) 25 mg Q5MIN PRN IV NAUSEA / VOMITING 12/11/18 11:00 12/11/18 12:38 DC Albuterol Sulfate (Ventolin) 2.5 mg OT PRN IH WHEEZING 12/11/18 11:00 12/11/18 12:46 DC Tramadol HCl (Ultram) 50 mg Q4HR PO 12/11/18 12:00 01/10/19 11:59 12/11/18 12:23 Tramadol HCl (Ultram) 100 mg Q4HR PRN PO PAIN 4 - 6 12/11/18 11:00 01/10/19 10:59 12/11/18 15:45 Rivaroxaban (Xarelto) 10 mg DAILY PO 12/12/18 09:00 01/11/19 08:59 Docusate Sodium (Colace) 100 mg DAILY PO 12/12/18 09:00 01/11/19 08:59 Throat Lozenges (Cepacol Sore Throat Lozenge) 1 each PRN PRN MM SORE THROAT 12/11/18 11:00 01/10/19 10:59 Famotidine (Pepcid) 20 mg DAILY PO 12/12/18 09:00 01/11/19 08:59 Vancomycin HCl 1 gm/Sodium Chloride 250 ml @ 175 mls/hr Q12H IV 12/11/18 19:00 12/12/18 20:26 Hydromorphone HCl (Dilaudid) 1 mg Q4H PRN IV PAIN 7 - 10 12/11/18 11:00 01/10/19 10:59 Albuterol Sulfate (Ventolin) 2.5 mg TID PRN IH WHEEZING 12/11/18 11:00 01/10/19 10:59 Atorvastatin Calcium (Lipitor) 20 mg HS PO 12/11/18 21:00 01/10/19 20:59 Bupropion HCl (Wellbutrin Xl) 150 mg DAILY PO 12/12/18 09:00 01/11/19 08:59 Pantoprazole Sodium (Protonix) 40 mg DAILY PO 12/12/18 09:00 01/11/19 08:59 Verapamil HCl (Calan) 240 mg DAILY PO 12/12/18 09:00 01/11/19 08:59 Vancomycin HCl 1500 mg/Sodium Chloride 250 ml @ 175 mls/hr OT ONCE IV 12/11/18 08:24 12/11/18 12:47 DC Course Sepsis Screening Results: Posi: NEGATIVE Sepsis Qualifier/Stage: NO DEFINITE RISK Duration or Total Time Spent w: 2 HRS Vitals & review Data Vital Sign - Last 24 Hours 12/11/18 12/11/18 12/11/18 12/11/18 05:58 05:58 07:09 07:16 Temp 98.2 Pulse 90 82 76 Resp 16 16 18 B/P (MAP) 153/99 (117) 172/84 (113) 163/72 (102) Pulse Ox 92 94 93 O2 Delivery Room Air Room Air Nasal Canula Nasal Canula O2 Flow Rate 3 2 12/11/18 12/11/18 12/11/18 12/11/18 07:26 08:00 08:00 10:31 Temp 97.7 Pulse 77 88 71 85 Resp 16 18 18 16 B/P (MAP) 152/87 (108) 137/64 (88) Pulse Ox 94 93 93 98 O2 Delivery Nasal Canula Non-Rebreather O2 Flow Rate 2 15 12/11/18 12/11/18 12/11/18 12/11/18 10:31 10:41 10:51 11:01 Temp 97.2 97.8 98.0 Pulse 68 69 79 Resp 17 17 18 B/P (MAP) 134/72 (92) 137/75 (95) 137/81 (99) Pulse Ox 99 98 96 O2 Delivery Non-Rebreather Non-Rebreather Nasal [place] O2 Flow Rate 15 10 5 3 7/2912/11/18 12/11/18 12/11/18 11:21 11:30 13:51 14:46 Temp 97.6 Pulse 71 87 Resp 18 18 18 B/P (MAP) 134/79 (97) Pulse Ox 95 95 96 O2 Delivery Nasal Canula Nasal Cannula Nasal Cannula O2 Flow Rate 3 1.00 1.00 FiO2 24 Current Medications Medications (Trade) Dose Ordered Sig/Fani PRN Reason Start Time Stop Time Status Last Admin Acetaminophen (Tylenol) 1,000 mg Q6H 12/11/18 07:00 01/10/19 06:59 12/11/18 12:24 Albuterol Sulfate (Ventolin) 2.5 mg TID PRN WHEEZING 12/11/18 11:00 01/10/19 10:59 Atorvastatin Calcium (Lipitor) 20 mg HS 12/11/18 21:00 01/10/19 20:59 Bupropion HCl (Wellbutrin Xl) 150 mg DAILY 12/12/18 09:00 01/11/19 08:59 Docusate Sodium (Colace) 100 mg DAILY 12/12/18 09:00 01/11/19 08:59 Famotidine (Pepcid) 20 mg DAILY 12/12/18 09:00 01/11/19 08:59 Gabapentin (Neurontin) 400 mg Q24HRS 12/12/18 07:00 12/12/18 07:01 Hydromorphone HCl (Dilaudid) 1 mg Q4H PRN PAIN 7 - 10 12/11/18 11:00 01/10/19 10:59 Pantoprazole Sodium (Protonix) 40 mg DAILY 12/12/18 09:00 01/11/19 08:59 Rivaroxaban (Xarelto) 10 mg DAILY 12/12/18 09:00 01/11/19 08:59 Throat Lozenges (Cepacol Sore Throat Lozenge) 1 each PRN PRN SORE THROAT 12/11/18 11:00 01/10/19 10:59 Tramadol HCl (Ultram) 50 mg Q4HR 12/11/18 12:00 01/10/19 11:59 12/11/18 12:23 Tramadol HCl (Ultram) 100 mg Q4HR PRN PAIN 4 - 6 12/11/18 11:00 01/10/19 10:59 12/11/18 15:45 Vancomycin HCl 1 gm/Sodium Chloride 250 ml @ 175 mls/hr Q12H 12/11/18 19:00 12/12/18 20:26 Verapamil HCl (Calan) 240 mg DAILY 12/12/18 09:00 01/11/19 08:59 Sepsis Infection Criteria Pres: None LEVEL 1 SEPSIS INFECTION CRITE: ABX Therapy, Recent Invasive Procedure LEVEL 2-SIRS (LIST ALL THAT AP: None/Not assessed Cardiovascular Evidence: Not Assessed or None Hematologic Evidence: None/Not assessed Hepatic Evidence: None/Not assessed Metabolic Evidence: None/Not assessed Neurological Evidence: None/Not assessed Respiratory Evidence: None/Not assessed Renal Evidence: None/Not assessed O2 Sat by Pulse Oximetry: 85 Oxygen Flow Rate: 2.00 Assessment/Plan Assessment/Plan Assessment/Plan 1. OA left knee: s/p Left TKA with Ortho. Stable. - Cont PT. Cont pain control. - Continue increase activity. 2. HLD: cont Statin 3. Asthma: cont ICS, added Nebs PRN. No wheezing, no respiratory distress. 4. PPx: Xarelto, PPI 5. Insomnia: Ambien [facility] PRN SAUL YUEN MD Dec 13, 2018 10:50
[2018-12-13 11:08] VITALS: BP 150/84
--- NOTE | 2018-12-13 12:04 | DSH ---
DATE OF DISCHARGE: 12/13/2018 ADMITTING DIAGNOSIS: Include osteoarthritis of the left knee. OTHER DIAGNOSES: Include asthma, hypertension, anxiety. DISCHARGE DIAGNOSES: Include osteoarthritis of the left knee plus postoperative anemia secondary to surgical blood loss expected. OPERATIVE PROCEDURE: 12/11/2018. PROCEDURE PERFORMED: Left total knee replacement. CONSULTATIONS: Dr. Wesley. COMPLICATIONS: None. SUMMARY OF ADMISSION: A 68-year-old female with end-stage osteoarthritis about the left knee that was limiting her daily activities. The patient had failed conservative treatment and the x-rays show that she was [id number] about the left knee. She was taken to the operating room for left total knee replacement. The patient's procedure was performed on 12/11/2018. Postoperatively, the patient was awake and alert. Her vital signs have been stable. Neurovascular exam is normal. The patient has been on a regular diet throughout her postoperative course, which she has tolerated well. On discharge, the patient can transfer in and out of bed independently. She can walk at least 100 feet with her walker, weightbearing as tolerated. Her pain has been satisfactorily controlled with tramadol. The patient has been on foot pump, SCDs as well as early ambulation and Xarelto for DVT prophylaxis. The patient will be discharged today on 12/13/2018. She will be instructed to leave her dressing intact. She will be given a prescription for tramadol for the pain. She will use aspirin 81 mg twice a day for DVT prophylaxis for 1 month. She will do physical therapy at [facility] and see me in the office in 5 days. Bay Ang MD DR: ERIN/ina JOB# [id number]
--- NOTE | 2018-12-13 12:05 | NUR ---
DISCHARGE PATIENT DISCHARGED. DISCHARGE INSTRUCTIONS GIVEN TO PATIENT. PATIENT HAS NO QUESTIONS OR CONCERNS AT THIS TIME. PATIENT TRANSFERRED OFF OF UNIT VIA W/C STABLE TO PRIVATE VEHICLE.
[2018-12-13 12:51] VITALS: BP 150/84
== END 2018-12-13 12:05 | disposition home or self-care (01) | DRG 470 ==
LOC: MS 10:43 → EDPENDDISTM 12-13 12:05
PROVIDERS: ADMIT Orthopaedic Surgery; ATTEND Orthopaedic Surgery
PROC: 0SRD0J9 Replacement of Left Knee Joint with Synthetic Substitute, Cemented, Open Approach (ICD-10-PCS; principal; 2018-12-11 08:00)
DX: M17.12 Unilateral primary osteoarthritis, left knee (principal); D62 Acute posthemorrhagic anemia; E78.5 Hyperlipidemia, unspecified; J45.909 Unspecified asthma, uncomplicated; G47.00 Insomnia, unspecified; F32.9 Major depressive disorder, single episode, unspecified; F41.9 Anxiety disorder, unspecified; I10 Essential (primary) hypertension; Z82.5 Family history of asthma and other chronic lower respiratory diseases; Z82.3 Family history of stroke; Z81.8 Family history of other mental and behavioral disorders; Z82.49 Family history of ischemic heart disease and other diseases of the circulatory system; Z88.0 Allergy status to penicillin; Z91.040 Latex allergy status; Z79.899 Other long term (current) drug therapy; Z79.82 Long term (current) use of aspirin; Z90.710 Acquired absence of both cervix and uterus; Z90.49 Acquired absence of other specified parts of digestive tract; Z80.3 Family history of malignant neoplasm of breast; Z87.891 Personal history of nicotine dependence
CPT/HCPCS: 36415; 80053; 85025; 85027; 87070; 94640; 97161; 97165; A4217; C1776; G0378; J1100; J1170; J1885; J2001; J2250; J2405; J2710; J2795; J3010; J3370; J3490; J7050; J7120; J7620; 73560-LT; 97110-GP; 97116-GP; 97535-GO; 97760-GP; C9290; J8499

== ENCOUNTER 2019-02-01 08:40 | Inpatient (IN) | payer MEDICARE ==
[~2019-02-01] VITALS: Ht 157.5 cm; Wt 72.6 kg
[2019-02-01 08:40] VITALS: BP 139/106
[~2019-02-01 08:40] MED LIST changes: -BACTROBAN OINTMENT TP ONE; -CELEBREX ONE; -CELEBREX PO SCH; -DECADRON ONE; -DILAUDID ONE; -DIPRIVAN IV ONE; -DUONEB 0.5 MG-3 MG/3 ML SOLN IH ONE; -LIDOCAINE 2% VIAL ONE; -NAROPIN 0.2% 40 MG/20 ML VIAL ONE; -NAROPIN 0.5% 5 MG/ML VIAL ONE; -NEOSTIGMINE ONE; -NEURONTIN ONE; -NEURONTIN PO SCH; -NS 100ML 100 ML IV ONE; -NS 250ML 250 ML IV ONE; -NS 3000ML IRR IR ONE; -PRECEDEX IV ONE; -SENSORCAINE 0.5% VIAL ONE; -SODIUM CHLORIDE IR ONE; -SUBLIMAZE ONE; -TORADOL ONE; -TRANEXAMIC ACID IV ONE; -TRANSDERM-SCOP TD ONE; -TYLENOL PO ONE; -TYLENOL PO SCH; -VANCOMYCIN 1,500 MG in NS 100ML 100 ML IV ONE; -VANCOMYCIN HCL 1 GM ONE; -VERSED ONE; -WATER ONE; -ZEMURON IV ONE; -ZOFRAN ONE
[2019-02-01] MEDS ORDERED: DUONEB 0.5 MG-3 MG/3 ML SOLN IH ONE ×2 (08:47→09:31)
[2019-02-01] MEDS ORDERED: DECADRON ONE ×2 (08:47→10:14)
[2019-02-01] MEDS ORDERED: DUONEB 0.5 MG-3 MG/3 ML SOLN IH STA ×3 (08:48→10:08)
[2019-02-01] MEDS ORDERED: SOLU-MEDROL IV STA (08:48)
[2019-02-01] MEDS ORDERED: DECADRON IH STA ×2 (08:48→10:08)
[2019-02-01 09:02] LABS: BASOPHIL % 0.3 % (0.0-0.2); EOSINOPHIL # 0.3 10^3/uL (0.0-0.2); EOSINOPHIL % 3.5 % (0.0-5.0); HEMOGLOBIN 14.4 g/dL (12.0-15.0); LYMPHOCYTES # 1.4 10^3/uL (1.0-4.8); LYMPHOCYTES % 17.5 % (24.0-44.0); MEAN CELL HGB 28.3 pg (26-34); MEAN CELL HGB CONCENTRATION 31.1 g/dL (33-37); MEAN CORP VOLUME 91.1 fL (78-100); MEAN PLATELET VOLUME 8.7 fL (7.8-11.0); MONOCYTES # 0.8 10^3/uL (0.3-0.8); MONOCYTES % 9.7 % (5.0-12.0); NEUTROPHIL # 5.4 10^3/uL (1.8-7.7); NEUTROPHILS % 68.7 % (41.0-85.0); RED CELL DISTRIBUTION WIDTH 14.5 % (11.5-14.5); WHITE BLOOD CELL 7.9 10^3/uL (4.5-11.0)
[2019-02-01] MEDS ORDERED: SOLU-MEDROL ONE (09:04)
--- NOTE | 2019-02-01 09:09 | PCM.EKG ---
[facility] Test Date: 2019-02-01 Test Time: 09:10:05 Pat Name: KEVIN ENCARNACION Department: Room: 332 Gender: F Supervisor [employer] Processing: BRITTANY : 1950 Requested By: GAB SEGOVIA Order Number: [id number] Reading MD: Gab Segovia Measurements Intervals [place] Rate: 100 P: 81 MI: 114 QRS: 78 QRSD: 74 T: 79 QT: 342 QTc: 441 Interpretive Statements Normal sinus rhythm Normal ECG Compared to ECG 06/28/2018 16:36:57 Sinus tachycardia no longer present Short MI interval no longer present Electronically Signed On 02-01-2019 16:35:44 CDT by Gab Segovia Please click the below link to view image of tracing.
--- NOTE | 2019-02-01 09:11 | ER.PDOC ---
General Chief Complaint: Requesting Medical Care Stated Complaint: SOB Time seen by MD: 08:50 Source: patient Exam Limitations: no limitations History of Present Illness Initial Comments SOB, cough with green sputum for several days, but, feeling SOB since after the left knee surgery in November Timing/Duration: 1 week Severity: severe Initiating Event: upper respiratory illness Associated Symptoms: shortness of breath, cough, productive cough, chest tightness Medication Course: maintenance Prior symptoms/Treatment: Similar symptoms previous, Recenly Seen Allergies: Coded Allergies: Penicillins (Unverified Allergy, Severe, CAN'T BREATH, SWELLS THROAT SHUT, SEVERE HEADACHE,RASH, 12/05/18) Latex, Natural Rubber (Verified Adverse Reaction, Severe, PELLS SKIN OFF, 12/05/18) Home Meds Reported Medications Ascorbic Acid (VITAMIN C) 1,000 Mg Tablet, 1000 MG PO DAILY24, TABLET 12/05/18 Atorvastatin 20MG (LIPITOR 20MG) 20 Mg Tablet, 1 TAB PO HS, #90 TAB 1 Refill 12/05/18 Bupropion Hcl (WELLBUTRIN XL) 150 Mg Tab.er.24h, 1 TAB PO DAILY, #30 TAB 12/05/18 Verapamil Hcl (VERAPAMIL ER) 240 Mg Cap24h.pel, 1 CAP PO DAILY, #30 CAP 5 Re fills 12/05/18 Pantoprazole Sodium (PANTOPRAZOLE SODIUM) 40 Mg Tablet.dr, 1 TAB PO DAILY, #30 TAB 3 Refills 12/05/18 Fluticasone/Umeclidin/Vilanter (Trelegy Ellipta 100-62.5-25) 100-62.5 Blst.w.dev, 1 PUFF PO DAILY24 12/05/18 [Allergy Shots] No Conflict Check, 1 VIAL SQ Q7D ON Sundays12/05/18 Ipratropium/Albuterol Sulfate (COMBIVENT RESPIMAT INHAL SPRAY) Unknown Strength Aer.w.adap, IH RTQID PRN for SHORTNESS OF BREATH 09/13/13 Albuterol Sulfate (ALBUTEROL SULFATE) 2.5 Mg/3 Ml Vial.neb, 2.5 MG IH TID PRN for WHEEZING 09/13/13 Past Medical History Surgical History: cholecystectomy, hysterectomy, shoulder, other Social History Drug Use: none Respiratory: see HPI All Other Systems: Reviewed and Negative Physical Exam General Appearance: alert, no distress EENT: eyes nml, no nystagmus, ENT nml inspection, pharynx nml Neck: nml inspection, non-tender Respiratory: chest non-tender, no respiratory distress, no accessory muscle use, decreased breath sounds, prolonged expirations, wheezing, expiration, inspiration Cardiovascular: Normal Peripheral Pulses, Regular Rate, Rhythm, No Edema, No Gallop, No JVD, No Murmur Abdomen: non-tender, no organomegaly Skin: Normal Color, Warm/Dry Extremities: non-tender, nml ROM, no pedal edema NEURO/PSYCH: oriented x 3, CN's nml as tested, motor nml, sensation nml, mood/affect nml Results/Orders Results/Orders Orders - BAMBI WILCOX MD Arterial Blood Gas (02/01/19 08:48) Cbc With Auto Diff (02/01/19 08:48) Comprehensive Metabolic Panel (02/01/19 08:48) Creatine Kinase (02/01/19 08:48) Probnp B-Type Automatic Hemmer (02/01/19 08:48) Ekg-Routine (02/01/19 08:48) Xr Chest 1v (02/01/19 08:48) Ipratropium/Albuterol Sulfate (Duoneb 0. (02/01/19 08:48) Dexamethasone Sod Phosphate (Decadron) (02/01/19 08:48) Methylprednisolone Sod Succ (Solu-Medrol (02/01/19 08:48) Methylprednisolone Sod Succ (Solu-Medrol (02/01/19 09:04) Laboratory Tests Test 02/01/19 08:57 White Blood Count 7.9 10^3/uL (4.5-11.0) Red Blood Count 5.08 10^6/uL (4.00-5.20) Hemoglobin 14.4 g/dL (12.0-15.0) Hematocrit 46.3 % (36.0-46.0) H Mean Corpuscular Volume 91.1 fL (78-100) Mean Corpuscular Hemoglobin 28.3 pg (26-34) Mean Corpuscular Hemoglobin Concent 31.1 g/dL (33-37) L Red Cell Distribution Width 14.5 % (11.5-14.5) Platelet Count 320 10^3/uL (150-400) Mean Platelet Volume 8.7 fL (7.8-11.0) Neutrophils (%) (Auto) 68.7 % (41.0-85.0) Lymphocytes (%) (Auto) 17.5 % (24.0-44.0) L Monocytes (%) (Auto) 9.7 % (5.0-12.0) Neutrophils # (Auto) 5.4 10^3/uL (1.8-7.7) Lymphocytes # (Auto) 1.4 10^3/uL (1.0-4.8) Monocytes # (Auto) 0.8 10^3/uL (0.3-0.8) Absolute Immature Granulocyte (auto 0.02 10^3 u/L (0-2) Immature Granulocytes % 0.30 % (0.00-0.50) Eosinophils % 3.5 % (0.0-5.0) Basophils % 0.3 % (0.0-0.2) H Basophils # 0.0 10^3/uL (0.0-0.1) Eosinophil Count 0.3 10^3/uL (0.0-0.2) H Departure Time of Disposition: 10:38 Disposition: 09 ADMITTED INPATIENT Impression: Primary Impression: Asthma with acute exacerbation Condition: Stable Referrals: MARCIE COYNE MD (PCP) PRIMARY CARE PROVIDER Duration or Time Spent with Pa: BAMBI TAYLOR MD Feb 01, 2019 09:11
[2019-02-01 09:27] LABS: CALCIUM 9.5 mg/dL (8.4-10.5); CARBON DIOXIDE 27.1 mmol/L (20.0-32)
[2019-02-01 09:29] LABS: ABG PCO2 39.1 mmHg (35.0-45.0); ABG PH 7.436 (7.350-7.450); BE(B) 1.5 mmol/L (-2.0-2.0); HCO3act 25.7 mmol/L (22.0-26.0); pO2 49.7 mmHg (80.0-100.0)
--- NOTE | 2019-02-01 09:45 | DIREP ---
PROCEDURE:CHEST 1 VIEW COMPARISON:[facility], CR, XRAY CHEST SINGLE VW, 06/28/2018, 03:54 PM. INDICATIONS:SOB FINDINGS: LUNGS/PLEURA:Mild interstitial prominence. No suspicious airspace consolidation, pleural effusion or pneumothorax is identified. VASCULATURE:Normal. Unremarkable pulmonary vasculature. CARDIAC:Normal. No cardiac silhouette abnormality or cardiomegaly. MEDIASTINUM:Mediastinal contours appear within normal limits with calcifications of the aorta. BONES:Degenerative changes of the spine and right shoulder. Apparent previous right rotator cuff repair. Left shoulder carmen arthroplasty. CONCLUSION: 1. Stable chest without acute cardiopulmonary abnormality. Interstitial prominence may reflect senescent changes or potential underlying chronic lung disease. Dictated by: Laz Kaur M.D. On 02/01/2019 at 09:43 AM
[2019-02-01 09:55] VITALS: BP 139/106
--- NOTE | 2019-02-01 10:37 | NUR ---
HOSPITALIST DR WILCOX ON PHONE WITH DR YUEN.
[2019-02-01 10:50] VITALS: BP 137/91
[2019-02-01] MEDS ORDERED: SOLU-MEDROL IV SCH (11:00)
[2019-02-01] MEDS ORDERED: DUONEB 0.5 MG-3 MG/3 ML SOLN IH SCH (11:00)
--- NOTE | 2019-02-01 11:00 | NUR ---
ADMIT PT TRANSFER TO [place] [id number] IN STABLE CONDITION VIA W/C ON 2L NC. REPORT GIVEN TO LILLY CASAS.
[2019-02-01 11:21] VITALS: BP 93/63
[2019-02-01] MEDS: DUONEB 0.5 MG-3 MG/3 ML SOLN IH SCH ×3 (13:07→20:39)
[2019-02-01] MEDS: SOLU-MEDROL IV SCH ×2 (14:00→18:44)
[2019-02-01] MEDS: ZITHROMAX 500 MG in NS 250ML 250 ML IV SCH (14:01)
[2019-02-01] MEDS: NS 1000ML 1,000 ML IV SCH (14:01)
[2019-02-01] MEDS ORDERED: TYLENOL PO PRN (16:00)
[2019-02-01 16:56] VITALS: BP 141/66
[2019-02-01 21:02] VITALS: BP 139/82
[2019-02-01] MEDS: MORPHINE SULFATE IV PRN (21:50)
--- NOTE | 2019-02-01 22:12 | HPH ---
ADMIT DATE: 02/01/2019 CHIEF COMPLAINT: Shortness of breath. HISTORY OF PRESENT ILLNESS: This is a 68-year-old female with a past medical history of lifelong asthma as well as hypertension that presents to the Emergency Department with complaints of shortness of breath for the last 7-10 days. She states that she has been mildly short of breath for the last couple of months, but she has been able to manage this at home with her medications. Apparently over the last 5-7 days, she states her symptoms became significantly worse and her nebulizer treatments were not sustaining her and she was unable to get improvement with her shortness of breath. Her family has been out of town and she had no assistance today and when her shortness of breath worsened even further, she drove herself to the Emergency Department. She also states she has had a cough with green sputum for the last several days. Of note, she had left knee surgery until November and states that is when most of the shortness of breath has started. PAST MEDICAL HISTORY: 1. Asthma. 2. Hypertension. 3. Gastroesophageal reflux disease. 4. Generalized anxiety. 5. Major depressive disorder. 6. Hyperlipidemia. MEDICATIONS: See admit medication reconciliation form. ALLERGIES: LATEX, NATURAL RUBBER, AND PENICILLINS. PAST SURGICAL HISTORY: 1. Cholecystectomy. 2. Hysterectomy. 3. Shoulder surgery. SOCIAL HISTORY: Alcohol, tobacco, recreational drugs -- none. FAMILY HISTORY: Positive for multiple family members with hypertension and hyperlipidemia. REVIEW OF SYSTEMS: GENERAL: Positive for weakness, fatigue and malaise. No fever. CARDIAC: Denies chest pain, orthopnea, PND or palpitations. RESPIRATORY: Positive for shortness of breath as above. GASTROINTESTINAL: No nausea, vomiting, diarrhea or constipation. GENITOURINARY: Denies dysuria, frequency, hematuria and nocturia. HEMATOLOGIC: No easy bleeding or bruising. ENDOCRINE: No recent weight loss or weight gain. No temperature intolerance. NEUROLOGIC: Denies headache, paresthesias or dizziness. MUSCULOSKELETAL: No complaints of bones, muscles or joints. PSYCHIATRIC: Denies depressive or anxiety symptoms. DERMATOLOGIC: No complaints of rashes or skin lesions. OBJECTIVE: PHYSICAL EXAMINATION: VITAL SIGNS: Temperature 97.8, pulse 106, respirations 16, blood pressure 141/66, O2 sat 96% on 2 liters. GENERAL: This is a weak-appearing female, in no acute distress. HEENT: Atraumatic, normocephalic. Sclerae are clear and anicteric. Oral mucosa is moist. NECK: Soft, supple, normal range of motion. No bruits, goiter, mass or adenopathy. There is no JVD. LUNGS: Decreased breath sounds bilaterally with mild diffuse wheezing on expiration. HEART: Regular rate and rhythm without murmurs, S3 or S4. ABDOMEN: Soft, nontender, nondistended. Positive bowel sounds. No masses felt. EXTREMITIES: Warm and well perfused with no edema, cyanosis or clubbing. NEUROLOGIC: Cranial nerves 2-12 are grossly intact and symmetric. SKIN: Intact. LABORATORY DATA: WBC 7.9, hemoglobin 14.4, hematocrit 46.3 and platelets 320. Sodium is 140, potassium 4.2, chloride 103, bicarbonate 27, BUN 13, creatinine 1.02. LFTs -- negative. ABG: pO2 49.7. Chest x-ray -- no acute cardiopulmonary process. ASSESSMENT: 1. Asthma exacerbation. 2. Acute hypoxemic respiratory failure. 3. Severe generalized weakness. 4. Tachycardia. 5. Generalized anxiety. PLAN: 1. The patient is admitted to [facility] for further evaluation and management. 2. Start scheduled IV corticosteroids. 3. Empiric antibiotics with azithromycin. 4. Nebulizer treatments every 4 hours and q. 2 hours p.r.n. 5. Morphine and lorazepam as needed for air hunger. 6. Consider echocardiogram in a.m. 7. Stress ulcer and DVT prophylaxis. Jairo Chinchilla MD DR: DEVAUGHN/ina JOB# [id number]
[2019-02-01] MEDS ORDERED: VENTOLIN IH PRN (22:30)
[2019-02-02] MEDS: DUONEB 0.5 MG-3 MG/3 ML SOLN IH SCH ×6 (00:09→20:34)
[2019-02-02 00:45] VITALS: BP 130/78
[2019-02-02] MEDS: SOLU-MEDROL IV SCH ×4 (01:09→20:37)
[2019-02-02] MEDS: NS 1000ML 1,000 ML IV SCH (02:33)
[2019-02-02] MEDS: MORPHINE SULFATE IV PRN (02:35)
[2019-02-02 03:53] VITALS: BP 139/77
[2019-02-02 05:20] LABS: HEMOGLOBIN 13.9 g/dL (12.0-15.0); MEAN CELL HGB 28.7 pg (26-34); MEAN CORP VOLUME 92.4 fL (78-100); MEAN PLATELET VOLUME 9.1 fL (7.8-11.0); RED CELL DISTRIBUTION WIDTH 14.4 % (11.5-14.5); WHITE BLOOD CELL 8.2 10^3/uL (4.5-11.0)
[2019-02-02 05:36] LABS: CALCIUM 9.4 mg/dL (8.4-10.5); CARBON DIOXIDE 23.6 mmol/L (20.0-32)
[2019-02-02 07:27] VITALS: BP 154/83
[2019-02-02] MEDS: VITAMIN C PO SCH (08:31)
[2019-02-02] MEDS: PROTONIX PO SCH (08:31)
[2019-02-02] MEDS: WELLBUTRIN XL PO SCH (08:31)
[2019-02-02] MEDS: CALAN PO SCH (08:58)
[2019-02-02] MEDS: ATIVAN IV PRN ×3 (10:28→20:37)
--- NOTE | 2019-02-02 10:33 | PRM.PN ---
Subjective Subjective Date: Feb 02, 2019 Time: 10:30 Subjective Feeling minimally better today. Still feels tight, SOB. Feels like she can't cough up mucous. Getting up out of bed a little. Denies fever or chest pain. VTE VTE Risk Total Score: >5 VTE Risk Score VTE Risk: Score 0-1 = Low Risk (Aggressive mobilization; early ambulation; no VTE prophylaxis required) Score 2: Moderate Risk (Intermittent/Pneumatic Compression Device OR Lovenox/Heparin/Coumadin) Score 3-4: High Risk (Intermittent/Pneumatic Compression Device AND Lovenox/Heparin/Coumadin) Score > or =5: Highest Risk (Intermittent/Pneumatic Compression Device AND Lovenox/Heparin/Coumadin) Review of Systems Constitutional: Weakness; No: Fever, Chills, Sweats, Malaise, Other Respiratory: Cough, Shortness of breath, SOB with excertion, Wheezing; No: Dry, Hemoptysis, Pleuritic Pain, Sputum, Wheezing, Other Cardiovascular: No: Chest Pain, Palpitations, Orthopnea, Paroxysmal Noc. Dyspnea, Edema, Lt Headedness, Other Gastrointestinal: No: Nausea, Vomiting, Abdominal Pain, Diarrhea, Constipation, Melena, Hematochezia, Other Genitourinary: No Dysuria, No Frequency, No Incontinence, No Hematuria, No Retention, No Other Musculoskeletal: leg pain Neurological: Weakness; No: Numbness, Incoordination, Change in speech, Confusion, Seizures, Other Allergies: Coded Allergies: Penicillins (Unverified Allergy, Severe, CAN'T BREATH, SWELLS THROAT SHUT, SEVERE HEADACHE,RASH, 12/05/18) Latex, Natural Rubber (Verified Adverse Reaction, Severe, PELLS SKIN OFF, 12/05/18) Scheduled Ascorbic Acid (Vitamin C), 1,000 MG PO DAILY24, (Reported) Atorvastatin 20MG (Lipitor 20MG), 1 TAB PO HS, (Reported) Bupropion Hcl (Wellbutrin Xl), 1 TAB PO DAILY, (Reported) Fluticasone/Umeclidin/Vilanter (Trelegy Ellipta 100-62.5-25), 1 PUFF PO DAILY24, (Reported) Pantoprazole Sodium (Pantoprazole Sodium), 1 TAB PO DAILY, (Reported) Verapamil Hcl (Verapamil Er), 1 CAP PO DAILY, (Reported) [Allergy Shots], 1 VIAL SQ Q7D, (Reported) Scheduled PRN Albuterol Sulfate (Albuterol Sulfate), 2.5 MG IH TID PRN for WHEEZING, (Reported) Ipratropium/Albuterol Sulfate (Combivent Respimat Inhal [place]), Unknown Dose IH RTQID PRN for SHORTNESS OF BREATH, (Reported) Objective Vitals and I/O Vital Sign - Last 24 Hours 02/01/19 02/01/19 02/01/19 02/01/19 10:34 10:34 10:50 11:21 Temp 97.9 Pulse 97 91 94 103 Resp 18 18 16 B/P (MAP) 137/91 (106) 93/63 (73) Pulse Ox 93 94 92 91 O2 Delivery Nasal Canula Nasal Canula O2 Flow Rate 2.00 02/01/19 02/01/19 02/01/19 02/01/19 12:01 13:10 13:12 13:13 Pulse 106 106 Resp 20 20 Pulse Ox 94 94 94 O2 Delivery Nasal Cannula Nasal Cannula O2 Flow Rate 2.00 2.00 FiO2 28 02/01/19 02/01/19 02/01/19 02/01/19 13:20 16:26 16:38 16:56 Temp 97.8 Pulse 108 109 106 105 Resp 16 B/P (MAP) 141/66 (91) Pulse Ox 93 96 96 O2 Delivery Nasal Canula O2 Flow Rate 2.00 02/01/19 02/01/19 02/01/19 02/01/19 20:39 20:40 20:45 21:02 Temp 97.9 Pulse 101 78 78 106 Resp 16 B/P (MAP) 139/82 (101) Pulse Ox 93 93 93 93 O2 Delivery Nasal Cannula Nasal Canula O2 Flow Rate 2.00 2.00 02/01/19 02/02/19 02/02/19 02/02/19 22:22 00:09 00:15 00:45 Temp 98.0 Pulse 94 94 95 Resp 20 20 16 B/P (MAP) 130/78 (95) Pulse Ox 91 91 93 O2 Delivery Nasal Cannula Nasal Canula O2 Flow Rate 2.00 2.00 02/02/19 02/02/19 02/02/19 02/02/19 03:53 04:07 04:17 07:27 Temp 97.5 97.9 Pulse 97 90 90 96 Resp 23 18 18 14 B/P (MAP) 139/77 (97) 154/83 (106) Pulse Ox 91 93 93 90 O2 Delivery Nasal Canula 02/02/19 02/02/19 02/02/19 02/02/19 08:14 08:15 08:24 08:58 Pulse 116 116 117 117 Resp 18 18 18 B/P (MAP) 154/83 Pulse Ox 91 91 94 O2 Delivery Room Air FiO2 21 02/02/19 10:00 O2 Delivery Nasal Cannula O2 Flow Rate 2.00 Intake and Output 02/01/19 02/01/19 02/02/19 14:59 22:59 06:59 Intake Total 240 ml 444 ml Balance 240 ml 444 ml General: Alert, Oriented X3, Cooperative, No acute distress HEENT: Atraumatic, PERRLA, EOMI, Mucous membr. moist/pink Lungs: Clear to auscultation, Normal air movement Heart: Regular rate, Normal S1, Normal S2, No murmurs Abdomen: Normal bowel sounds, Soft, No tenderness Extremities: Other Neuro: Normal speech, Strength at 5/5 X4 ext, Normal tone, Sensation intact, Cranial nerves 3-12 NL Psych/Mental Status: Mental status NL, Mood NL All Results(Lab/Rad) Laboratory Tests Test 02/02/19 04:51 02/02/19 09:14 White Blood Count 8.2 10^3/uL Red Blood Count 4.85 10^6/uL Hemoglobin 13.9 g/dL Hematocrit 44.8 % Mean Corpuscular Volume 92.4 fL Mean Corpuscular Hemoglobin 28.7 pg Mean Corpuscular Hemoglobin Concent 31.0 g/dL Red Cell Distribution Width 14.4 % Platelet Count 290 10^3/uL Mean Platelet Volume 9.1 fL Sodium Level 139 mmol/L Potassium Level 4.1 mmol/L Chloride Level 103.0 mmol/L Carbon Dioxide Level 23.6 mmol/L Anion Gap 16.5 Blood Urea Nitrogen 9 mg/dL Creatinine 1.11 mg/dL Estimated GFR () 59.3 BUN/Creatinine Ratio 8.0 Glucose Level 163 mg/dL Hemoglobin A1c 5.4 % Calcium Level 9.4 mg/dL Total Bilirubin 0.3 mg/dL Aspartate Amino Transf (AST/SGOT) 13 U/L Alanine Aminotransferase (ALT/SGPT) 13 U/L Alkaline Phosphatase 120 U/L Total Protein 8.7 g/dL Albumin 3.3 g/dL Globulin 5.4 D-Dimer 1.44 mg/L Current Medications Medications (Trade) Dose Ordered Sig/Fani Route PRN Reason Start Time Stop Time Status Last Admin Dose Admin Albuterol/ Ipratropium (Duoneb 0.5 Mg-3 Mg/3 ml Soln) 3 ml STK-MED ONCE IH 02/01/19 08:47 02/01/19 08:49 DC Dexamethasone Sodium Phosphate (Decadron) 4 mg STK-MED ONCE .ROUTE 02/01/19 08:47 02/01/19 08:49 DC Albuterol/ Ipratropium (Duoneb 0.5 Mg-3 Mg/3 ml Soln) 3 ml STAT STAT IH 02/01/19 08:48 02/01/19 08:50 DC 02/01/19 09:38 Dexamethasone Sodium Phosphate (Decadron) 4 mg STAT STAT IH 02/01/19 08:48 02/01/19 08:50 DC 02/01/19 09:38 Methylprednisolone Sodium Succinate (Solu-Medrol) 125 mg STAT STAT IV 02/01/19 08:48 02/01/19 08:50 DC 02/01/19 09:57 Methylprednisolone Sodium Succinate (Solu-Medrol) 125 mg STK-MED ONCE .ROUTE 02/01/19 09:04 02/01/19 09:06 DC Albuterol/ Ipratropium (Duoneb 0.5 Mg-3 Mg/3 ml Soln) 3 ml STK-MED ONCE IH 02/01/19 09:31 02/01/19 09:32 DC Albuterol/ Ipratropium (Duoneb 0.5 Mg-3 Mg/3 ml Soln) 3 ml STAT STAT IH 02/01/19 09:48 02/01/19 13:37 DC 02/01/19 10:33 Albuterol/ Ipratropium (Duoneb 0.5 Mg-3 Mg/3 ml Soln) 3 ml STAT STAT IH 02/01/19 10:08 02/01/19 10:09 DC 02/01/19 10:33 Dexamethasone Sodium Phosphate (Decadron) 4 mg STAT STAT IH 02/01/19 10:08 02/01/19 10:09 DC 02/01/19 10:33 Dexamethasone Sodium Phosphate (Decadron) 4 mg STK-MED ONCE .ROUTE 02/01/19 10:14 02/01/19 10:16 DC Methylprednisolone Sodium Succinate (Solu-Medrol) 60 mg Q8HR IV 02/01/19 11:00 02/01/19 13:00 DC Albuterol/ Ipratropium (Duoneb 0.5 Mg-3 Mg/3 ml Soln) 3 ml RTQ4 IH 02/01/19 11:00 02/01/19 11:40 DC Albuterol/ Ipratropium (Duoneb 0.5 Mg-3 Mg/3 ml Soln) 3 ml RTQ4 IH 02/01/19 13:00 03/03/19 12:59 02/02/19 08:14 Methylprednisolone Sodium Succinate (Solu-Medrol) 80 mg Q6 IV 02/01/19 13:00 02/02/19 23:59 02/02/19 06:10 Azithromycin 500 mg/Sodium Chloride 250 ml @ 175 mls/hr Q24HRS IV 02/01/19 13:00 03/03/19 12:59 02/01/19 14:01 Sodium Chloride 1,000 ml @ 75 mls/hr [id number] IV 02/01/19 13:00 03/03/19 12:59 02/02/19 02:33 Acetaminophen (Tylenol) 1,000 mg Q6HR PRN PO HEADACHE 02/01/19 16:00 03/03/19 15:59 Morphine Sulfate (Morphine Sulfate) 4 mg Q4H PRN IV PAIN 4 - 6 02/01/19 22:00 03/03/19 21:59 02/02/19 02:35 Lorazepam (Ativan) 1 mg Q4HR PRN IV AGITATION 02/01/19 22:00 03/03/19 21:59 02/02/19 10:28 Albuterol Sulfate (Ventolin) 2.5 mg TID PRN IH WHEEZING 02/01/19 22:30 03/03/19 22:29 Atorvastatin Calcium (Lipitor) 20 mg HS PO 02/02/19 21:00 03/04/19 20:59 Bupropion HCl (Wellbutrin Xl) 150 mg DAILY PO 02/02/19 09:00 03/04/19 08:59 02/02/19 08:31 Pantoprazole Sodium (Protonix) 40 mg DAILY PO 02/02/19 09:00 03/04/19 08:59 02/02/19 08:31 Ascorbic Acid (Vitamin C) 1,000 mg DAILY PO 02/02/19 09:00 03/04/19 08:59 02/02/19 08:31 Verapamil HCl (Calan) 240 mg DAILY PO 02/02/19 09:00 03/04/19 08:59 02/02/19 08:58 Course Sepsis Screening Results: Posi: NEGATIVE Sepsis Qualifier/Stage: NO DEFINITE RISK Duration or Total Time Spent w: 20 Vitals & review Data Vital Sign - Last 24 Hours 02/01/19 02/01/19 02/01/19 02/01/19 10:34 10:34 10:50 11:21 Temp 97.9 Pulse 97 91 94 103 Resp 16 B/P (MAP) 137/91 (106) 93/63 (73) Pulse Ox 93 94 92 91 O2 Delivery Nasal Canula Nasal Canula O2 Flow Rate 2.00 02/01/19 02/01/19 02/01/19 02/01/19 12:01 13:10 13:12 13:13 Pulse 106 106 Resp 20 20 20 Pulse Ox 94 94 94 O2 Delivery Nasal Cannula Nasal Cannula O2 Flow Rate 2.00 2.00 FiO2 28 02/01/19 02/01/19 02/01/19 02/01/19 13:20 16:26 16:38 16:56 Temp 97.8 Pulse 108 109 106 105 Resp 18 16 B/P (MAP) 141/66 (91) Pulse Ox 93 96 96 O2 Delivery Nasal Canula O2 Flow Rate 2.00 02/01/19 02/01/19 02/01/19 02/01/19 20:39 20:40 20:45 21:02 Temp 97.9 Pulse 101 78 78 106 Resp 16 B/P (MAP) 139/82 (101) Pulse Ox 93 93 93 93 O2 Delivery Nasal Cannula Nasal Canula O2 Flow Rate 2.00 2.00 02/01/19 02/02/19 02/02/19 02/02/19 22:22 00:09 00:15 00:45 Temp 98.0 Pulse 94 94 95 Resp 20 20 16 B/P (MAP) 130/78 (95) Pulse Ox 91 91 93 O2 Delivery Nasal Cannula Nasal Canula O2 Flow Rate 2.00 2.00 02/02/19 02/02/19 02/02/19 02/02/19 03:53 04:07 04:17 07:27 Temp 97.5 97.9 Pulse 97 90 90 96 Resp 23 18 18 14 B/P (MAP) 139/77 (97) 154/83 (106) Pulse Ox 91 93 93 90 O2 Delivery Nasal Canula 02/02/19 02/02/19 02/02/19 02/02/19 08:14 08:15 08:24 08:58 Pulse 116 116 117 117 Resp 18 18 18 B/P (MAP) 154/83 Pulse Ox 91 91 94 O2 Delivery Room Air FiO2 21 02/02/19 10:00 O2 Delivery Nasal Cannula O2 Flow Rate 2.00 Intake and Output 02/01/19 02/01/19 02/02/19 14:59 22:59 06:59 Intake Total 240 ml 444 ml Balance 240 ml 444 ml Laboratory Tests Test 02/01/19 08:57 02/01/19 09:21 02/02/19 04:51 02/02/19 09:14 White Blood Count 7.9 10^3/uL 8.2 10^3/uL Red Blood Count 5.08 10^6/uL 4.85 10^6/uL Hemoglobin 14.4 g/dL 13.9 g/dL Hematocrit 46.3 % 44.8 % Mean Corpuscular Volume 91.1 fL 92.4 fL Mean Corpuscular Hemoglobin 28.3 pg 28.7 pg Mean Corpuscular Hemoglobin Concent 31.1 g/dL 31.0 g/dL Red Cell Distribution Width 14.5 % 14.4 % Platelet Count 320 10^3/uL 290 10^3/uL Mean Platelet Volume 8.7 fL 9.1 fL Neutrophils (%) (Auto) 68.7 % Lymphocytes (%) (Auto) 17.5 % Monocytes (%) (Auto) 9.7 % Neutrophils # (Auto) 5.4 10^3/uL Lymphocytes # (Auto) 1.4 10^3/uL Monocytes # (Auto) 0.8 10^3/uL Absolute Immature Granulocyte (auto 0.02 10^3 u/L Immature Granulocytes % 0.30 % Eosinophils % 3.5 % Basophils % 0.3 % Basophils # 0.0 10^3/uL Eosinophil Count 0.3 10^3/uL Sodium Level 140 mmol/L 139 mmol/L Potassium Level 4.2 mmol/L 4.1 mmol/L Chloride Level 103.0 mmol/L 103.0 mmol/L Carbon Dioxide Level 27.1 mmol/L 23.6 mmol/L Anion Gap 14.1 16.5 Blood Urea Nitrogen 13 mg/dL 9 mg/dL Creatinine 1.02 mg/dL 1.11 mg/dL Estimated GFR () 65.4 59.3 BUN/Creatinine Ratio 12.0 8.0 Glucose Level 101 mg/dL 163 mg/dL Calcium Level 9.5 mg/dL 9.4 mg/dL Total Bilirubin 0.5 mg/dL 0.3 mg/dL Aspartate Amino Transf (AST/SGOT) 16 U/L 13 U/L Alanine Aminotransferase (ALT/SGPT) 15 U/L 13 U/L Alkaline Phosphatase 133 U/L 120 U/L Total Creatine Kinase 62 U/L Pro-B-Type Natriuretic Peptide 111 pg/mL Total Protein 8.6 g/dL 8.7 g/dL Albumin 3.5 g/dL 3.3 g/dL Globulin 5.1 5.4 Blood Gas Sample Site RB Blood Gas pH 7.436 Blood Gas PCO2 39.1 mmHg Blood Gas PO2 49.7 mmHg Blood Gas HCO3 25.7 mmol/L Blood Gas Base Excess 1.5 mmol/L Tim Test N/A Arterial Blood Oxygen Saturation 86.0 % Deoxyhemoglobin 13.8 % Carboxyhemoglobin 1.2 % Methemoglobin 0.1 % Total Hemoglobin 14.3 % Total Oxygen Concentration 17.0 % Lactic Acid (Blood Gas) 1.0 mmol/1 Blood Gas Temperature 37 Oxygen Delivery Method (LAB) ROOMAIR FiO2 21.0 % Bicarbonate 26.9 mmol/L Hemoglobin A1c 5.4 % D-Dimer 1.44 mg/L Current Medications Medications (Trade) Dose Ordered Sig/Fani PRN Reason Start Time Stop Time Status Last Admin Acetaminophen (Tylenol) 1,000 mg Q6HR PRN HEADACHE 02/01/19 16:00 03/03/19 15:59 Albuterol Sulfate (Ventolin) 2.5 mg TID PRN WHEEZING 02/01/19 22:30 03/03/19 22:29 Albuterol/ Ipratropium (Duoneb 0.5 Mg-3 Mg/3 ml Soln) 3 ml RTQ4 02/01/19 13:00 03/03/19 12:59 02/02/19 08:14 Ascorbic Acid (Vitamin C) 1,000 mg DAILY 02/02/19 09:00 03/04/19 08:59 02/02/19 08:31 Atorvastatin Calcium (Lipitor) 20 mg HS 02/02/19 21:00 03/04/19 20:59 Azithromycin 500 mg/Sodium Chloride 250 ml @ 175 mls/hr Q24HRS 02/01/19 13:00 03/03/19 12:59 02/01/19 14:01 Bupropion HCl (Wellbutrin Xl) 150 mg DAILY 02/02/19 09:00 03/04/19 08:59 02/02/19 08:31 Lorazepam (Ativan) 1 mg Q4HR PRN AGITATION 02/01/19 22:00 03/03/19 21:59 02/02/19 10:28 Methylprednisolone Sodium Succinate (Solu-Medrol) 80 mg Q6 02/01/19 13:00 02/02/19 23:59 02/02/19 06:10 Morphine Sulfate (Morphine Sulfate) 4 mg Q4H PRN PAIN 4 - 6 02/01/19 22:00 03/03/19 21:59 02/02/19 02:35 Pantoprazole Sodium (Protonix) 40 mg DAILY 02/02/19 09:00 03/04/19 08:59 02/02/19 08:31 Sodium Chloride 1,000 ml @ 75 mls/hr [id number] 02/01/19 13:00 03/03/19 12:59 02/02/19 02:33 Verapamil HCl (Calan) 240 mg DAILY 02/02/19 09:00 03/04/19 08:59 02/02/19 08:58 Sepsis Infection Criteria Pres: None LEVEL 1 SEPSIS INFECTION CRITE: ABX Therapy, Recent Invasive Procedure LEVEL 2-SIRS (LIST ALL THAT AP: RR>20/min, HR>90/min Cardiovascular Evidence: Not Assessed or None Hematologic Evidence: None/Not assessed Hepatic Evidence: None/Not assessed Metabolic Evidence: None/Not assessed Neurological Evidence: None/Not assessed Respiratory Evidence: O2 SAT<90room air Renal Evidence: None/Not assessed O2 Sat by Pulse Oximetry: 94 Oxygen Flow Rate: 2.00 Assessment/Plan Assessment/Plan Assessment/Plan 1. Asthma exacerbation - Slow to improve. - Continue IV Corticosteroids. - Nebs q 4 and prn. - Resp hygiene. - Slowly increase activity. 2. Acute hypoxemic respiratory failure - O2 requirement improving. - Continue plan as above. 3. Severe generalized weakness - Secondary to above and deconditioning. - Increase activity. 4. Tachycardia - Stable. Related to above. 5. Generalized anxiety - Lorazepam added for air hunger and generalized anxiety. SAUL YUEN MD Feb 02, 2019 10:33
--- NOTE | 2019-02-02 10:51 | NUR ---
DISCHARGE PLAN CM VISITED WITH PATIENT REGARDING DISCHARGE PLAN AND GOAL. PATIENT LIVES AT HOME WITH HER SPOUSE. SHE IS INDEPENDENT OF ADLS. SHE DOES HAVE A WALKER AND CANE IF SHE NEEDS TO USE THEM. SHE DENIES HAVING OXYGEN IN THE HOME. HER PCP IS DR COYNE AND SHE IS FINANCIALLY ABLE TO PAY FOR HER MEDICATIONS. CM EDUCATED HER ON OP, HOME HEALTH AND SNF SERVICES. SHE STATES SHE HAD A KNEE REPLACEMENT A FEW MONTHS AGO AND IS CURRENTLY GOING TO [facility] FOR HER OP SERVICES. SHE DENIES FURTHER RESOURCES AT THIS TIME. DISCHARGE GOAL IS FOR PATIENT TO DISCHARGE HOME WITH HER SPOUSE AND CONTINUE TO FOLLOW UP WITH [facility]. CM WILL CONTINUE TO FOLLOW NEEDS OF THE PATIENT.
[2019-02-02 11:01] LABS: CALCIUM 9.3 mg/dL (8.4-10.5); CARBON DIOXIDE 23.6 mmol/L (20.0-32)
--- NOTE | 2019-02-02 14:08 | DIREP ---
PROCEDURE:CTA CHEST COMPARISON:[facility], CT, CT CHEST W/CONTRAST, 11/03/2018, 02:12 PM. INDICATIONS:HYPOXIA, CP, S/P KNEE REPLACEMENT X 2 MO TECHNIQUE:Post contrast axial images through the chest with multiplanar MIP/3D reconstructions. FINDINGS: PULMONARY ARTERIES:Patent. LUNGS:Tiny focus of atelectasis or scarring in the anterior lateral aspect of the left upper lobe. CARDIAC:Normal size heart and normal pulmonary vascularity. RV:LV ratio (norm <0.9): Not applicable in the absence of pulmonary embolism. THYROID:Normal. THORACIC AORTA:Normal. MEDIASTINUM:Normal. PLEURA:Normal. BONES:Normal. OTHER:Cholecystectomy clips are present in the gallbladder fossa. Evidence of prior gastric sleeve surgery peer CONCLUSION: 1. Tiny focus of atelectasis or scarring anterior at lateral aspect of the left upper lobe. 2. No evidence for pulmonary embolism. Dictated by: Toni Gonzales MD on 02/02/2019 at 02:01 PM
[2019-02-02] MEDS: ZITHROMAX 500 MG in NS 250ML 250 ML IV SCH (14:27)
[2019-02-02 15:11] VITALS: BP 112/55
[2019-02-02 20:09] VITALS: BP 119/59
[2019-02-02] MEDS: LIPITOR PO SCH (20:37)
[2019-02-03] MEDS: DUONEB 0.5 MG-3 MG/3 ML SOLN IH SCH ×6 (00:01→21:07)
[2019-02-03 00:49] VITALS: BP 103/47
[2019-02-03] MEDS: ATIVAN IV PRN ×3 (00:53→10:58)
--- NOTE | 2019-02-03 01:05 | NUR ---
Patient request to not have solemedrol tonight so she can sleep. Patient states it keeps her awake
[2019-02-03 05:33] VITALS: BP 124/87
[2019-02-03 08:53] VITALS: BP 128/66
[2019-02-03] MEDS: CALAN PO SCH (08:59)
[2019-02-03] MEDS: WELLBUTRIN XL PO SCH (08:59)
[2019-02-03] MEDS: PROTONIX PO SCH (08:59)
[2019-02-03] MEDS: VITAMIN C PO SCH (08:59)
[2019-02-03 13:02] VITALS: BP 118/62
[2019-02-03] MEDS: ZITHROMAX 500 MG in NS 250ML 250 ML IV SCH (14:40)
[2019-02-03] MEDS: SOLU-MEDROL IV SCH ×2 (16:38→22:00)
[2019-02-03 17:26] VITALS: BP 127/67
--- NOTE | 2019-02-03 17:27 | PRM.PN ---
Subjective Subjective Date: Feb 03, 2019 Time: 17:21 Subjective Continues to improve overnight. Breathing rate and hypoxia improving. Chest tightness improving. Still very fatigued, especially with exertion. Caleb PO. Cough better. Slept better last night. No other overnight events. VTE VTE Risk Total Score: >5 VTE Risk Score VTE Risk: Score 0-1 = Low Risk (Aggressive mobilization; early ambulation; no VTE prophylaxis required) Score 2: Moderate Risk (Intermittent/Pneumatic Compression Device OR Lovenox/Heparin/Coumadin) Score 3-4: High Risk (Intermittent/Pneumatic Compression Device AND Lovenox/Heparin/Coumadin) Score > or =5: Highest Risk (Intermittent/Pneumatic Compression Device AND Lovenox/Heparin/Coumadin) Review of Systems Constitutional: Weakness; No: Fever, Chills, Sweats, Malaise, Other Respiratory: Cough, Shortness of breath, SOB with excertion, Wheezing; No: Dry, Hemoptysis, Pleuritic Pain, Sputum, Wheezing, Other Cardiovascular: No: Chest Pain, Palpitations, Orthopnea, Paroxysmal Noc. Dyspnea, Edema, Lt Headedness, Other Gastrointestinal: No: Nausea, Vomiting, Abdominal Pain, Diarrhea, Constipation, Melena, Hematochezia, Other Genitourinary: No Dysuria, No Frequency, No Incontinence, No Hematuria, No Retention, No Other Musculoskeletal: leg pain Neurological: Weakness; No: Numbness, Incoordination, Change in speech, Confusion, Seizures, Other Allergies: Coded Allergies: Penicillins (Unverified Allergy, Severe, CAN'T BREATH, SWELLS THROAT SHUT, SEVERE HEADACHE,RASH, 12/05/18) Latex, Natural Rubber (Verified Adverse Reaction, Severe, PELLS SKIN OFF, 12/05/18) Scheduled Ascorbic Acid (Vitamin C), 1,000 MG PO DAILY24, (Reported) Atorvastatin 20MG (Lipitor 20MG), 1 TAB PO HS, (Reported) Bupropion Hcl (Wellbutrin Xl), 1 TAB PO DAILY, (Reported) Fluticasone/Umeclidin/Vilanter (Trelegy Ellipta 100-62.5-25), 1 PUFF PO DAILY24, (Reported) Pantoprazole Sodium (Pantoprazole Sodium), 1 TAB PO DAILY, (Reported) Verapamil Hcl (Verapamil Er), 1 CAP PO DAILY, (Reported) [Allergy Shots], 1 VIAL SQ Q7D, (Reported) Scheduled PRN Albuterol Sulfate (Albuterol Sulfate), 2.5 MG IH TID PRN for WHEEZING, (Reported) Ipratropium/Albuterol Sulfate (Combivent Respimat Inhal [place]), Unknown Dose IH RTQID PRN for SHORTNESS OF BREATH, (Reported) Objective Vitals and I/O Vital Sign - Last 24 Hours 02/01/19 02/01/19 02/01/19 02/01/19 10:34 10:34 10:50 11:21 Temp 97.9 Pulse 97 91 94 103 Resp 18 18 16 B/P (MAP) 137/91 (106) 93/63 (73) Pulse Ox 93 94 92 91 O2 Delivery Nasal Canula Nasal Canula O2 Flow Rate 2.00 02/01/19 02/01/19 02/01/19 02/01/19 12:01 13:10 13:12 13:13 Pulse 106 106 Resp 20 20 Pulse Ox 94 94 94 O2 Delivery Nasal Cannula Nasal Cannula O2 Flow Rate 2.00 2.00 FiO2 28 02/01/19 02/01/19 02/01/19 02/01/19 13:20 16:26 16:38 16:56 Temp 97.8 Pulse 108 109 106 105 Resp 18 16 B/P (MAP) 141/66 (91) Pulse Ox 93 96 96 O2 Delivery Nasal Canula O2 Flow Rate 2.00 02/01/19 02/01/19 02/01/19 02/01/19 20:39 20:40 20:45 21:02 Temp 97.9 Pulse 101 78 78 106 Resp 20 16 B/P (MAP) 139/82 (101) Pulse Ox 93 93 93 93 O2 Delivery Nasal Cannula Nasal Canula O2 Flow Rate 2.00 2.00 02/01/19 02/02/19 02/02/19 02/02/19 22:22 00:09 00:15 00:45 Temp 98.0 Pulse 94 94 95 Resp 20 20 16 B/P (MAP) 130/78 (95) Pulse Ox 91 91 93 O2 Delivery Nasal Cannula Nasal Canula O2 Flow Rate 2.00 2.00 02/02/19 02/02/19 02/02/19 02/02/19 03:53 04:07 04:17 07:27 Temp 97.5 97.9 Pulse 97 90 90 96 Resp 23 18 18 14 B/P (MAP) 139/77 (97) 154/83 (106) Pulse Ox 91 93 93 90 O2 Delivery Nasal Canula 02/02/19 02/02/19 02/02/19 02/02/19 08:14 08:15 08:24 08:58 Pulse 116 116 117 117 Resp 18 18 18 B/P (MAP) 154/83 Pulse Ox 91 91 94 O2 Delivery Room Air FiO2 21 02/02/19 10:00 O2 Delivery Nasal Cannula O2 Flow Rate 2.00 Intake and Output 02/01/19 02/01/19 02/02/19 14:59 22:59 06:59 Intake Total 240 ml 444 ml Balance 240 ml 444 ml General: Alert, Oriented X3, Cooperative, No acute distress HEENT: Atraumatic, PERRLA, EOMI, Mucous membr. moist/pink Lungs: Clear to auscultation, Normal air movement Heart: Regular rate, Normal S1, Normal S2, No murmurs Abdomen: Normal bowel sounds, Soft, No tenderness Extremities: Other Neuro: Normal speech, Strength at 5/5 X4 ext, Normal tone, Sensation intact, Cranial nerves 3-12 NL Psych/Mental Status: Mental status NL, Mood NL All Results(Lab/Rad) Laboratory Tests Test 02/02/19 04:51 02/02/19 09:14 White Blood Count 8.2 10^3/uL Red Blood Count 4.85 10^6/uL Hemoglobin 13.9 g/dL Hematocrit 44.8 % Mean Corpuscular Volume 92.4 fL Mean Corpuscular Hemoglobin 28.7 pg Mean Corpuscular Hemoglobin Concent 31.0 g/dL Red Cell Distribution Width 14.4 % Platelet Count 290 10^3/uL Mean Platelet Volume 9.1 fL Sodium Level 139 mmol/L Potassium Level 4.1 mmol/L Chloride Level 103.0 mmol/L Carbon Dioxide Level 23.6 mmol/L Anion Gap 16.5 Blood Urea Nitrogen 9 mg/dL Creatinine 1.11 mg/dL Estimated GFR () 59.3 BUN/Creatinine Ratio 8.0 Glucose Level 163 mg/dL Hemoglobin A1c 5.4 % Calcium Level 9.4 mg/dL Total Bilirubin 0.3 mg/dL Aspartate Amino Transf (AST/SGOT) 13 U/L Alanine Aminotransferase (ALT/SGPT) 13 U/L Alkaline Phosphatase 120 U/L Total Protein 8.7 g/dL Albumin 3.3 g/dL Globulin 5.4 D-Dimer 1.44 mg/L Current Medications Medications (Trade) Dose Ordered Sig/Fani Route PRN Reason Start Time Stop Time Status Last Admin Dose Admin Albuterol/ Ipratropium (Duoneb 0.5 Mg-3 Mg/3 ml Soln) 3 ml STK-MED ONCE IH 02/01/19 08:47 02/01/19 08:49 DC Dexamethasone Sodium Phosphate (Decadron) 4 mg STK-MED ONCE .ROUTE 02/01/19 08:47 02/01/19 08:49 DC Albuterol/ Ipratropium (Duoneb 0.5 Mg-3 Mg/3 ml Soln) 3 ml STAT STAT IH 02/01/19 08:48 02/01/19 08:50 DC 02/01/19 09:38 Dexamethasone Sodium Phosphate (Decadron) 4 mg STAT STAT IH 02/01/19 08:48 02/01/19 08:50 DC 02/01/19 09:38 Methylprednisolone Sodium Succinate (Solu-Medrol) 125 mg STAT STAT IV 02/01/19 08:48 02/01/19 08:50 DC 02/01/19 09:57 Methylprednisolone Sodium Succinate (Solu-Medrol) 125 mg STK-MED ONCE .ROUTE 02/01/19 09:04 02/01/19 09:06 DC Albuterol/ Ipratropium (Duoneb 0.5 Mg-3 Mg/3 ml Soln) 3 ml STK-MED ONCE IH 02/01/19 09:31 02/01/19 09:32 DC Albuterol/ Ipratropium (Duoneb 0.5 Mg-3 Mg/3 ml Soln) 3 ml STAT STAT IH 02/01/19 09:48 02/01/19 13:37 DC 02/01/19 10:33 Albuterol/ Ipratropium (Duoneb 0.5 Mg-3 Mg/3 ml Soln) 3 ml STAT STAT IH 02/01/19 10:08 02/01/19 10:09 DC 02/01/19 10:33 Dexamethasone Sodium Phosphate (Decadron) 4 mg STAT STAT IH 02/01/19 10:08 02/01/19 10:09 DC 02/01/19 10:33 Dexamethasone Sodium Phosphate (Decadron) 4 mg STK-MED ONCE .ROUTE 02/01/19 10:14 02/01/19 10:16 DC Methylprednisolone Sodium Succinate (Solu-Medrol) 60 mg Q8HR IV 02/01/19 11:00 02/01/19 13:00 DC Albuterol/ Ipratropium (Duoneb 0.5 Mg-3 Mg/3 ml Soln) 3 ml RTQ4 IH 02/01/19 11:00 02/01/19 11:40 DC Albuterol/ Ipratropium (Duoneb 0.5 Mg-3 Mg/3 ml Soln) 3 ml RTQ4 IH 02/01/19 13:00 03/03/19 12:59 02/02/19 08:14 Methylprednisolone Sodium Succinate (Solu-Medrol) 80 mg Q6 IV 02/01/19 13:00 02/02/19 23:59 02/02/19 06:10 Azithromycin 500 mg/Sodium Chloride 250 ml @ 175 mls/hr Q24HRS IV 02/01/19 13:00 03/03/19 12:59 02/01/19 14:01 Sodium Chloride 1,000 ml @ 75 mls/hr [id number] IV 02/01/19 13:00 03/03/19 12:59 02/02/19 02:33 Acetaminophen (Tylenol) 1,000 mg Q6HR PRN PO HEADACHE 02/01/19 16:00 03/03/19 15:59 Morphine Sulfate (Morphine Sulfate) 4 mg Q4H PRN IV PAIN 4 - 6 02/01/19 22:00 03/03/19 21:59 02/02/19 02:35 Lorazepam (Ativan) 1 mg Q4HR PRN IV AGITATION 02/01/19 22:00 03/03/19 21:59 02/02/19 10:28 Albuterol Sulfate (Ventolin) 2.5 mg TID PRN IH WHEEZING 02/01/19 22:30 03/03/19 22:29 Atorvastatin Calcium (Lipitor) 20 mg HS PO 02/02/19 21:00 03/04/19 20:59 Bupropion HCl (Wellbutrin Xl) 150 mg DAILY PO 02/02/19 09:00 03/04/19 08:59 02/02/19 08:31 Pantoprazole Sodium (Protonix) 40 mg DAILY PO 02/02/19 09:00 03/04/19 08:59 02/02/19 08:31 Ascorbic Acid (Vitamin C) 1,000 mg DAILY PO 02/02/19 09:00 03/04/19 08:59 02/02/19 08:31 Verapamil HCl (Calan) 240 mg DAILY PO 02/02/19 09:00 03/04/19 08:59 02/02/19 08:58 Course Sepsis Screening Results: Posi: NEGATIVE Sepsis Qualifier/Stage: NO DEFINITE RISK Duration or Total Time Spent w: 20 Vitals & review Data Vital Sign - Last 24 Hours 02/01/19 02/01/19 02/01/19 02/01/19 10:34 10:34 10:50 11:21 Temp 97.9 Pulse 97 91 94 103 Resp 16 B/P (MAP) 137/91 (106) 93/63 (73) Pulse Ox 93 94 92 91 O2 Delivery Nasal Canula Nasal Canula O2 Flow Rate 2.00 02/01/19 02/01/19 02/01/19 02/01/19 12:01 13:10 13:12 13:13 Pulse 106 106 Resp 20 20 Pulse Ox 94 94 94 O2 Delivery Nasal Cannula Nasal Cannula O2 Flow Rate 2.00 2.00 FiO2 28 02/01/19 02/01/19 02/01/19 02/01/19 13:20 16:26 16:38 16:56 Temp 97.8 Pulse 108 109 106 105 Resp 18 16 B/P (MAP) 141/66 (91) Pulse Ox 93 96 96 O2 Delivery Nasal Canula O2 Flow Rate 2.00 02/01/19 02/01/19 02/01/19 02/01/19 20:39 20:40 20:45 21:02 Temp 97.9 Pulse 101 78 78 106 Resp 16 B/P (MAP) 139/82 (101) Pulse Ox 93 93 93 93 O2 Delivery Nasal Cannula Nasal Canula O2 Flow Rate 2.00 2.00 02/01/19 02/02/19 02/02/19 02/02/19 22:22 00:09 00:15 00:45 Temp 98.0 Pulse 94 94 95 Resp 20 20 16 B/P (MAP) 130/78 (95) Pulse Ox 91 91 93 O2 Delivery Nasal Cannula Nasal Canula O2 Flow Rate 2.00 2.00 02/02/19 02/02/19 02/02/19 02/02/19 03:53 04:07 04:17 07:27 Temp 97.5 97.9 Pulse 97 90 90 96 Resp 23 18 18 14 B/P (MAP) 139/77 (97) 154/83 (106) Pulse Ox 91 93 93 90 O2 Delivery Nasal Canula 02/02/19 02/02/19 02/02/19 02/02/19 08:14 08:15 08:24 08:58 Pulse 116 116 117 117 Resp 18 18 B/P (MAP) 154/83 Pulse Ox 91 91 94 O2 Delivery Room Air FiO2 21 02/02/19 10:00 O2 Delivery Nasal Cannula O2 Flow Rate 2.00 Intake and Output 02/01/19 02/01/19 02/02/19 14:59 22:59 06:59 Intake Total 240 ml 444 ml Balance 240 ml 444 ml Laboratory Tests Test 02/01/19 08:57 02/01/19 09:21 02/02/19 04:51 02/02/19 09:14 White Blood Count 7.9 10^3/uL 8.2 10^3/uL Red Blood Count 5.08 10^6/uL 4.85 10^6/uL Hemoglobin 14.4 g/dL 13.9 g/dL Hematocrit 46.3 % 44.8 % Mean Corpuscular Volume 91.1 fL 92.4 fL Mean Corpuscular Hemoglobin 28.3 pg 28.7 pg Mean Corpuscular Hemoglobin Concent 31.1 g/dL 31.0 g/dL Red Cell Distribution Width 14.5 % 14.4 % Platelet Count 320 10^3/uL 290 10^3/uL Mean Platelet Volume 8.7 fL 9.1 fL Neutrophils (%) (Auto) 68.7 % Lymphocytes (%) (Auto) 17.5 % Monocytes (%) (Auto) 9.7 % Neutrophils # (Auto) 5.4 10^3/uL Lymphocytes # (Auto) 1.4 10^3/uL Monocytes # (Auto) 0.8 10^3/uL Absolute Immature Granulocyte (auto 0.02 10^3 u/L Immature Granulocytes % 0.30 % Eosinophils % 3.5 % Basophils % 0.3 % Basophils # 0.0 10^3/uL Eosinophil Count 0.3 10^3/uL Sodium Level 140 mmol/L 139 mmol/L Potassium Level 4.2 mmol/L 4.1 mmol/L Chloride Level 103.0 mmol/L 103.0 mmol/L Carbon Dioxide Level 27.1 mmol/L 23.6 mmol/L Anion Gap 14.1 16.5 Blood Urea Nitrogen 13 mg/dL 9 mg/dL Creatinine 1.02 mg/dL 1.11 mg/dL Estimated GFR () 65.4 59.3 BUN/Creatinine Ratio 12.0 8.0 Glucose Level 101 mg/dL 163 mg/dL Calcium Level 9.5 mg/dL 9.4 mg/dL Total Bilirubin 0.5 mg/dL 0.3 mg/dL Aspartate Amino Transf (AST/SGOT) 16 U/L 13 U/L Alanine Aminotransferase (ALT/SGPT) 15 U/L 13 U/L Alkaline Phosphatase 133 U/L 120 U/L Total Creatine Kinase 62 U/L Pro-B-Type Natriuretic Peptide 111 pg/mL Total Protein 8.6 g/dL 8.7 g/dL Albumin 3.5 g/dL 3.3 g/dL Globulin 5.1 5.4 Blood Gas Sample Site RB Blood Gas pH 7.436 Blood Gas PCO2 39.1 mmHg Blood Gas PO2 49.7 mmHg Blood Gas HCO3 25.7 mmol/L Blood Gas Base Excess 1.5 mmol/L Tim Test N/A Arterial Blood Oxygen Saturation 86.0 % Deoxyhemoglobin 13.8 % Carboxyhemoglobin 1.2 % Methemoglobin 0.1 % Total Hemoglobin 14.3 % Total Oxygen Concentration 17.0 % Lactic Acid (Blood Gas) 1.0 mmol/1 Blood Gas Temperature 37 Oxygen Delivery Method (LAB) ROOMAIR FiO2 21.0 % Bicarbonate 26.9 mmol/L Hemoglobin A1c 5.4 % D-Dimer 1.44 mg/L Current Medications Medications (Trade) Dose Ordered Sig/Fani PRN Reason Start Time Stop Time Status Last Admin Acetaminophen (Tylenol) 1,000 mg Q6HR PRN HEADACHE 02/01/19 16:00 03/03/19 15:59 Albuterol Sulfate (Ventolin) 2.5 mg TID PRN WHEEZING 02/01/19 22:30 03/03/19 22:29 Albuterol/ Ipratropium (Duoneb 0.5 Mg-3 Mg/3 ml Soln) 3 ml RTQ4 02/01/19 13:00 03/03/19 12:59 02/02/19 08:14 Ascorbic Acid (Vitamin C) 1,000 mg DAILY 02/02/19 09:00 03/04/19 08:59 02/02/19 08:31 Atorvastatin Calcium (Lipitor) 20 mg HS 02/02/19 21:00 03/04/19 20:59 Azithromycin 500 mg/Sodium Chloride 250 ml @ 175 mls/hr Q24HRS 02/01/19 13:00 03/03/19 12:59 02/01/19 14:01 Bupropion HCl (Wellbutrin Xl) 150 mg DAILY 02/02/19 09:00 03/04/19 08:59 02/02/19 08:31 Lorazepam (Ativan) 1 mg Q4HR PRN AGITATION 02/01/19 22:00 03/03/19 21:59 02/02/19 10:28 Methylprednisolone Sodium Succinate (Solu-Medrol) 80 mg Q6 02/01/19 13:00 02/02/19 23:59 02/02/19 06:10 Morphine Sulfate (Morphine Sulfate) 4 mg Q4H PRN PAIN 4 - 6 02/01/19 22:00 03/03/19 21:59 02/02/19 02:35 Pantoprazole Sodium (Protonix) 40 mg DAILY 02/02/19 09:00 03/04/19 08:59 02/02/19 08:31 Sodium Chloride 1,000 ml @ 75 mls/hr [id number] 02/01/19 13:00 03/03/19 12:59 02/02/19 02:33 Verapamil HCl (Calan) 240 mg DAILY 02/02/19 09:00 03/04/19 08:59 02/02/19 08:58 Sepsis Infection Criteria Pres: None LEVEL 1 SEPSIS INFECTION CRITE: ABX Therapy, Recent Invasive Procedure LEVEL 2-SIRS (LIST ALL THAT AP: RR>20/min, HR>90/min Cardiovascular Evidence: Not Assessed or None Hematologic Evidence: None/Not assessed Hepatic Evidence: None/Not assessed Metabolic Evidence: None/Not assessed Neurological Evidence: None/Not assessed Respiratory Evidence: Need for O2 to keep>90%, O2 SAT<90room air Renal Evidence: None/Not assessed O2 Sat by Pulse Oximetry: 95 Respiratory End-tidal CO2: 93 Oxygen Flow Rate: 2.00 Assessment/Plan Assessment/Plan Assessment/Plan 1. Asthma exacerbation - Slow to improve. - Continue IV Corticosteroids but will start weening dose. - Continue iV Azithromycin. - Nebs q 4 and prn. - Aggressive resp hygiene. - Slowly increase activity. 2. Acute hypoxemic respiratory failure - O2 requirement improving. Etiology all reactive airway. - Continue plan as above. 3. Severe generalized weakness - Secondary to above and deconditioning. Seems to have made significant improvement. - Increase activity. 4. Tachycardia - Stable. Related to above. 5. Generalized anxiety - Lorazepam added for air hunger and generalized anxiety. - Would very likely benefit from Sertraline or Venlafaxine upon d/c. 6. Right Lung Nodule - Not seen on any imaging performed here. - Recommended to her to follow up with her [employer] for this. 7. Atelectasis - Mostly L side. No evidence true nodule on the left. - F/U with lung doctor. SAUL YUEN MD Feb 03, 2019 17:27
--- NOTE | 2019-02-03 18:19 | NUR ---
IV PT C/O IV HURTING. NO S/S OF INFILTRATION. FLUSHES WITHOUT DIFFICULTY. BLOOD RETURN NOTED. DR YUEN NOTIFIED THAT PT WANT'S IT OUT AND WILL BE REFUSING SOLUMEDROL IV SO SHE CAN SLEEP TONIGHT. ORDERS RECEIVED TO LEAVE IV OUT.
[2019-02-03 20:38] VITALS: BP 113/92
[2019-02-03] MEDS: LIPITOR PO SCH (21:15)
[2019-02-03] MEDS: ATIVAN PO PRN (21:15)
[2019-02-04] MEDS: DUONEB 0.5 MG-3 MG/3 ML SOLN IH SCH ×4 (01:21→12:46)
[2019-02-04] MEDS: ATIVAN PO PRN ×2 (01:23→10:58)
[2019-02-04 02:09] VITALS: BP 143/70
[2019-02-04 04:54] VITALS: BP 133/83
[2019-02-04] MEDS: SOLU-MEDROL IV SCH (05:40)
--- NOTE | 2019-02-04 05:40 | NUR ---
Non admiend 0600 solumedrol no IV
[2019-02-04 08:30] VITALS: BP 119/60
[2019-02-04] MEDS: WELLBUTRIN XL PO SCH (08:44)
[2019-02-04] MEDS: PROTONIX PO SCH (08:44)
[2019-02-04] MEDS: VITAMIN C PO SCH (08:45)
[2019-02-04] MEDS: CALAN PO SCH (08:45)
--- NOTE | 2019-02-04 10:58 | NUR ---
OXYGEN SATURATION PT REQUESTED O2 BE PLACED BACK ON. SPO2 CHECKED AND 93% ON ROOM AIR. EDUCATED PT ON SPO2 AND THE NEED TO NOT OVER OXYGENATE. PT STATES "YEAH I DONT WANT TO DO THAT. I DONT WANT OXYGEN AT HOME. I DONT NEED IT." PT KEPT ON ROOM AIR.
[2019-02-04 11:45] VITALS: BP 136/75
[2019-02-04] MEDS ORDERED: AZIT250T14 PO (13:17)
[2019-02-04] MEDS ORDERED: PRED10TA PO (13:17)
[2019-02-04] MEDS ORDERED: LORA-448 PO (13:17)
--- NOTE | 2019-02-04 13:21 | PRM.DC ---
Post-OP Discharge Summary Date of Arrival on Unit: Feb 01, 2019 Objective Review IO, Exams,& Results Problems Acute/Active Problems: (1) Asthma with acute exacerbation Vital Signs Date Time Temp Pulse Resp B/P (MAP) Pulse Ox O2 Delivery O2 Flow Rate FiO2 02/04/19 12:52 91 18 94 02/04/19 08:52 Room Air 02/04/19 08:45 119/60 02/04/19 08:30 98.0 02/04/19 04:27 2.00 02/03/19 17:24 28 Intake and Output 02/04/19 07:00 Intake Total 236 ml Balance 236 ml Intake Oral 236 ml # Voids 4 Current Medications Medications (Trade) Dose Ordered Sig/Fani PRN Reason Start Time Stop Time Status Last Admin Acetaminophen (Tylenol) 1,000 mg Q6HR PRN HEADACHE 02/01/19 16:00 03/03/19 15:59 Albuterol Sulfate (Ventolin) 2.5 mg TID PRN WHEEZING 02/01/19 22:30 03/03/19 22:29 02/03/19 11:20 Ascorbic Acid (Vitamin C) 1,000 mg DAILY 02/02/19 09:00 03/04/19 08:59 02/04/19 08:45 Atorvastatin Calcium (Lipitor) 20 mg HS 02/02/19 21:00 03/04/19 20:59 02/03/19 21:15 Bupropion HCl (Wellbutrin Xl) 150 mg DAILY 02/02/19 09:00 03/04/19 08:59 02/04/19 08:45 Lorazepam (Ativan) 1 mg Q4 PRN AGITATION 02/03/19 19:00 03/05/19 18:59 02/04/19 10:58 Methylprednisolone Sodium Succinate (Solu-Medrol) 60 mg Q8HR 02/03/19 15:00 03/05/19 14:59 02/03/19 16:38 Morphine Sulfate (Morphine Sulfate) 4 mg Q4H PRN PAIN 4 - 6 02/01/19 22:00 03/03/19 21:59 02/02/19 02:35 Pantoprazole Sodium (Protonix) 40 mg DAILY 02/02/19 09:00 03/04/19 08:59 02/04/19 08:45 Verapamil HCl (Calan) 240 mg DAILY 02/02/19 09:00 03/04/19 08:59 02/04/19 08:45 Orders - SAUL YUEN MD Methylprednisolone Sod Succ (Solu-Medrol (02/03/19 15:00) Lorazepam (Ativan) (02/03/19 19:00) Discharge (02/04/19 13:05) Heart: Regular rate, Normal S1, Normal S2, No murmurs Abdomen: Normal bowel sounds, Soft, No tenderness Lungs: Clear to auscultation, Normal air movement Changes in Treatment See dictated d/c summary. Course (Sepsis Review) Date of Reassessment: Feb 04, 2019 Time of Reassessment: 0900 Blood Pressure Systolic: 119 Blood Pressure Diastolic: 60 Diagnosis Problems/Diagnosis: (1) Asthma with acute exacerbation (2) Shortness of breath (3) Anxiety Departure Discharge Date: Feb 04, 2019 Discharge Time: 13:21 Discharge Disposition: Home SAUL YUEN MD Feb 04, 2019 13:21
[2019-02-04 13:50] VITALS: BP 136/75
--- NOTE | 2019-02-04 21:32 | DSH ---
DATE OF DISCHARGE: 02/04/2019 ADMITTING DIAGNOSES: 1. Asthma exacerbation. 2. Acute hypoxemic respiratory failure. 3. Severe generalized weakness. 4. Tachycardia. 5. Generalized anxiety. DISCHARGE DIAGNOSES: 1. Asthma exacerbation. 2. Acute hypoxemic respiratory failure - present on admission. 3. Tachycardia. 4. Severe generalized weakness. 5. Generalized anxiety. 6. Right lung nodule. 7. Atelectasis. DISCHARGE DISPOSITION: Home. DISCHARGE FOLLOWUP: Follow up with PCP in 2 weeks. MEDICATIONS: 1. Prednisone 40 mg daily for 5 days. 2. Ativan 1 mg every 6 hours p.r.n. 3. Azithromycin 250 mg daily for 5 days. 4. Resume previous home medications. HOSPITAL COURSE: This is a 68-year-old female that was admitted for shortness of breath and asthma exacerbation as listed above. She was started on IV corticosteroids as well as IV antibiotics in the form of azithromycin. She was given nebulizer treatments immediately and her condition improved rapidly. She began having much improved oxygenation and symptomatic shortness of breath even within 24 hours. It was also found that the patient was significantly anxious. She was given IV lorazepam with significant positive results. She requested this as an outpatient as it helped her breathing so much. I saw the patient on 02/04/2019 and she was feeling much better and ready for discharge. Shortness of breath was much improved. Anxiety was improved on lorazepam. PHYSICAL EXAMINATION: VITAL SIGNS: Vital signs were evaluated today and were stable. GENERAL: Physical exam was generally normal. CHEST: Clear to auscultation bilaterally. HEART: Regular rate and rhythm without murmurs, S3 or S4. ABDOMEN: Soft, nontender, nondistended. EXTREMITIES: No edema, cyanosis or clubbing. NEUROLOGIC: Cranial nerves 2 through 12 are grossly intact and symmetric. LABORATORY DATA: Labs were reviewed and stable. DISPOSITION: The patient was thus discharged to home in stable condition with instructions to follow up with her PCP within 2 weeks. Jairo Chinchilla MD DR: DEVAUGHN/ina JOB# [id number]
== END 2019-02-04 13:50 | disposition home or self-care (01) | DRG 189 ==
LOC: ER 08:40 → MS 10:40
PROVIDERS: ADMIT Internal Medicine; ATTEND Internal Medicine
DX: J96.01 Acute respiratory failure with hypoxia (principal); J45.901 Unspecified asthma with (acute) exacerbation; J98.11 Atelectasis; E78.5 Hyperlipidemia, unspecified; F32.9 Major depressive disorder, single episode, unspecified; R91.1 Solitary pulmonary nodule; F41.1 Generalized anxiety disorder; I10 Essential (primary) hypertension; K21.9 Gastro-esophageal reflux disease without esophagitis; Z82.49 Family history of ischemic heart disease and other diseases of the circulatory system; Z90.710 Acquired absence of both cervix and uterus; Z90.49 Acquired absence of other specified parts of digestive tract; Z83.438 Family history of other disorder of lipoprotein metabolism and other lipidemia; Z91.040 Latex allergy status; Z88.0 Allergy status to penicillin; Z91.048 Other nonmedicinal substance allergy status; Z79.899 Other long term (current) drug therapy
CPT/HCPCS: 36415; 36600; 71045; 71275; 80053; 82550; 82803; 83036; 83880; 85025; 85027; 85379; 93005; 94640; 99285; G0378; J0456; J1100; J2060; J2270; J2920; J2930; J7030; J7050; J7613; J7620; Q9967

== ENCOUNTER 2019-02-05 10:10 | Observation (INO) | payer MEDICARE ==
[~2019-02-05] VITALS: Ht 149.9 cm; Wt 77.1 kg
[2019-02-05] VITALS (10 sets, daily range): BP systolic 97–195; BP diastolic 50–96
[~2019-02-05 10:10] MED LIST changes: +AZIT250T14 PO; +LORA-448 PO; +PRED10TA PO
--- NOTE | 2019-02-05 10:14 | NUR ---
ARRIVAL PT ARRIVED VIA WHEELCHAIR TO ER 6 C/O SHORTNESS OF BREATH. PT STATES WAS ADMITTED TO [facility] AND DISCHARGED LAST NIGHT FOR ASTHMA EXACERBATION. EDP NOTIFIED OF PT ARRIVAL.
[2019-02-05] MEDS ORDERED: DUONEB 0.5 MG-3 MG/3 ML SOLN IH ONE (10:29)
[2019-02-05] MEDS ORDERED: DECADRON ONE (10:29)
[2019-02-05 10:39] LABS: BASOPHIL % 0.1 % (0.0-0.2); EOSINOPHIL # 0.1 10^3/uL (0.0-0.2); EOSINOPHIL % 0.5 % (0.0-5.0); HEMOGLOBIN 13.5 g/dL (12.0-15.0); LYMPHOCYTES % 10.1 % (24.0-44.0); MEAN CELL HGB 28.7 pg (26-34); MEAN CORP VOLUME 92.8 fL (78-100); MEAN PLATELET VOLUME 8.7 fL (7.8-11.0); MONOCYTES # 0.8 10^3/uL (0.3-0.8); NEUTROPHILS % 80.7 % (41.0-85.0); RED CELL DISTRIBUTION WIDTH 14.6 % (11.5-14.5); WHITE BLOOD CELL 9.9 10^3/uL (4.5-11.0)
--- NOTE | 2019-02-05 10:42 | PCM.EKG ---
[facility] Test Date: 2019-02-05 Test Time: 10:42:57 Pat Name: KEVIN ECNARNACION Department: Room: Gender: F Retail Advertising Sales Manager: MILO : 1950 Requested By: AMOR ANDREW Order Number: [id number] Reading MD: Measurements Intervals [place] Rate: 92 P: 79 NJ: 112 QRS: 73 QRSD: 68 T: 68 QT: 348 QTc: 430 Interpretive Statements Normal sinus rhythm Normal ECG Compared to ECG 02/01/2019 09:10:05 No significant changes Please click the below link to view image of tracing.
[2019-02-05] MEDS ORDERED: EPINEPHrine IM STA (10:47)
[2019-02-05] MEDS ORDERED: VENTOLIN IH STA (10:47)
[2019-02-05] MEDS ORDERED: SOLU-MEDROL IV STA (10:47)
[2019-02-05] MEDS ORDERED: MAGNESIUM SULFATE 50 ML IV ONE (11:00)
[2019-02-05 11:06] LABS: ALANINE AMINOTRANSFERASE(ML) 16 U/L (12-78); ALKALINE PHOSPHATASE 101 U/L (50-136); ASPARTATE AMINO TRANSFERASE 12 U/L (0-35); CALCIUM 8.6 mg/dL (8.4-10.5); CARBON DIOXIDE 27.3 mmol/L (20.0-32); GLUCOSE 98 mg/dL (70-110)
[2019-02-05 11:10] LABS: ABG PH 7.467 (7.350-7.450); BE(B) 4.3 mmol/L (-2.0-2.0); HCO3act 28.3 mmol/L (22.0-26.0); pO2 55.2 mmHg (80.0-100.0)
--- NOTE | 2019-02-05 11:10 | ER.PDOC ---
General Chief Complaint: Dyspnea/Respdistress Stated Complaint: ASTHMA ATTACK Time seen by MD: 11:00 Source: patient Exam Limitations: no limitations History of Present Illness Initial Comments D/C FROM HOSPITAL YESTERDAY Timing/Duration: 24 hours Severity: moderate Activities at Onset: activity/exertion, rest Prior Episodes/Possible Cause: occasional episodes Modifying Factors: improves with activity, improves with albuterol inhaler, improves with antibiotics, improves with rest Associated Symptoms: cough, wheezing Prior symptoms/Treatment: Similar symptoms previous, Recenly Seen, Treated by Doctor, Recently Hospitalized Allergies: Coded Allergies: Penicillins (Unverified Allergy, Severe, CAN'T BREATH, SWELLS THROAT SHUT, SEVERE HEADACHE,RASH, 12/05/18) Latex, Natural Rubber (Verified Adverse Reaction, Severe, PELLS SKIN OFF, 12/05/18) Home Meds Active Scripts Prednisone (PREDNISONE) 10 Mg Tablet, 40 MG PO DAILY24 for 5 Days, TAB Prov:SAUL YUEN MD 02/04/19 Azithromycin (AZITHROMYCIN) 250 Mg Tablet, 250 MG PO DAILY24 for 5 Days Prov:SAUL YUEN MD 02/04/19 Lorazepam (ATIVAN) 1 Mg Tablet, 1 MG PO Q6 PRN for AGITATION for 14 Days, #14 TAB Prov:SAUL YUEN MD 02/04/19 Reported Medications Ascorbic Acid (VITAMIN C) 1,000 Mg Tablet, 1000 MG PO DAILY24, TABLET 12/05/18 Atorvastatin 20MG (LIPITOR 20MG) 20 Mg Tablet, 1 TAB PO HS, #90 TAB 1 Refill 12/05/18 Bupropion Hcl (WELLBUTRIN XL) 150 Mg Tab.er.24h, 1 TAB PO DAILY, #30 TAB 12/05/18 Verapamil Hcl (VERAPAMIL ER) 240 Mg Cap24h.pel, 1 CAP PO DAILY, #30 CAP 5 Refills 12/05/18 Pantoprazole Sodium (PANTOPRAZOLE SODIUM) 40 Mg Tablet.dr, 1 TAB PO DAILY, #30 TAB 3 Refills 12/05/18 Fluticasone/Umeclidin/Vilanter (Trelegy Ellipta 100-62.5-25) 100-62.5 Blst.w.dev, 1 PUFF PO DAILY24 12/05/18 [Allergy Shots] No Conflict Check, 1 VIAL SQ Q7D ON Sundays12/05/18 Ipratropium/Albuterol Sulfate (COMBIVENT RESPIMAT INHAL SPRAY) Unknown Strength Aer.w.adap, IH RTQID PRN for SHORTNESS OF BREATH 09/13/13 Albuterol Sulfate (ALBUTEROL SULFATE) 2.5 Mg/3 Ml Vial.neb, 2.5 MG IH TID PRN for WHEEZING 09/13/13 Past Medical History Medical History: asthma, hypertension Surgical History: cholecystectomy, hysterectomy, knee, shoulder LMP (females 10-50): hysterectomy Social History Smoking: non-smoker Alcohol Use: none Drug Use: none Reviewed Nursing Reviewed: Vital Signs, Abn. Noted Review of Systems All Other Systems: Reviewed and Negative Physical Exam General Appearance: No Apparent Distress, WD/WN HEENT: PERRL/EOMI, Normal ENT Inspection, TMs Normal, Pharynx Normal Neck: Non-Tender, Full Range of Motion, Supple, Normal Inspection Respiratory: respiratory distress, decreased breath sounds, accessory muscle use, retractions, rhonchi, wheezing Cardiovascular: Normal Peripheral Pulses, Regular Rate, Rhythm, No Edema, No Gallop, No JVD, No Murmur Gastrointestinal: Normal Bowel Sounds, No Organomegaly, No Pulsatile Mass, Non Tender, Soft Extremities: Normal Range of Motion, Non-Tender, Normal Inspection, No Pedal Edema, No Calf Tenderness, Normal Capillary Refill Neurologic/Psychiatric: toll line mechanic II-XII NML as Tested, No Motor/Sensory Deficits, Alert, Normal Mood/Affect, Oriented x 3 Skin: Normal Color, Warm/Dry Lymphatic: No Adenopathy Results/Orders Results/Orders Orders - AMOR ANDREW MD Cbc With Auto Diff (02/05/19 10:25) Comprehensive Metabolic Panel (02/05/19 10:25) Creatine Kinase (02/05/19 10:25) Troponin I (02/05/19 10:25) Probnp B-Type Owner Manager (02/05/19 10:25) PT (02/05/19 10:25) Partial Thromboplastin Time. (02/05/19 10:25) Helicobacter Pylori (02/05/19 10:25) D-Dimer (02/05/19 10:25) Ekg-Routine (02/05/19 10:25) Xr Chest 2v (02/05/19 10:25) Ipratropium/Albuterol Sulfate (Duoneb 0. (02/05/19 10:29) Dexamethasone Sod Phosphate (Decadron) (02/05/19 10:29) Magnesium 2 Gm/Water 50ml (Magnesium Sul (02/05/19 11:00) Epinephrine (Epinephrine) (02/05/19 10:47) Methylprednisolone Sod Succ (Solu-Medrol (02/05/19 10:47) Albuterol Sulfate (Ventolin) (02/05/19 10:47) Arterial Blood Gas (02/05/19 10:47) +Ref Lac Acid Yn (Sepsis Prot) (02/05/19 11:12) Ipratropium/Albuterol Sulfate (Duoneb 0. (02/05/19 11:13) Dexamethasone Sod Phosphate (Decadron) (02/05/19 11:13) Albuterol Sulfate (Ventolin) (02/05/19 11:16) Vital Signs Date Time Temp Pulse Resp B/P (MAP) Pulse Ox O2 Delivery O2 Flow Rate FiO2 02/05/19 11:32 96 28 91 02/05/19 11:05 28 91 02/05/19 11:04 95 28 91 02/05/19 10:55 95 28 91 02/05/19 10:44 98.1 97 18 170/96 (120) 94 Room Air 02/05/19 10:44 98.0 97 18 02/05/19 10:14 98.1 97 18 94 Room Air 02/04/19 08:45 101 Administered Medications Medications (Trade) Dose Ordered Sig/Fani Route PRN Reason Start Time Stop Time Status Last Admin Dose Admin Albuterol Sulfate (Ventolin) 5 mg STAT STAT IH 02/05/19 10:47 02/05/19 10:52 DC 02/05/19 11:30 5 MG Albuterol/ Ipratropium (Duoneb 0.5 Mg-3 Mg/3 ml Soln) 3 ml STAT STAT IH 02/05/19 11:13 02/05/19 11:14 UNV 02/05/19 11:30 3 ML Dexamethasone Sodium Phosphate (Decadron) 4 mg STAT STAT IH 02/05/19 11:13 02/05/19 11:14 UNV 02/05/19 11:30 4 MG Laboratory Tests Test 02/05/19 10:35 02/05/19 10:57 White Blood Count 9.9 10^3/uL (4.5-11.0) Red Blood Count 4.70 10^6/uL (4.00-5.20) Hemoglobin 13.5 g/dL (12.0-15.0) Hematocrit 43.6 % (36.0-46.0) Mean Corpuscular Volume 92.8 fL (78-100) Mean Corpuscular Hemoglobin 28.7 pg (26-34) Mean Corpuscular Hemoglobin Concent 31.0 g/dL (33-37) L Red Cell Distribution Width 14.6 % (11.5-14.5) H Platelet Count 262 10^3/uL (150-400) Mean Platelet Volume 8.7 fL (7.8-11.0) Neutrophils (%) (Auto) 80.7 % (41.0-85.0) Lymphocytes (%) (Auto) 10.1 % (24.0-44.0) L Monocytes (%) (Auto) 8.0 % (5.0-12.0) Neutrophils # (Auto) 8.0 10^3/uL (1.8-7.7) H Lymphocytes # (Auto) 1.0 10^3/uL (1.0-4.8) Monocytes # (Auto) 0.8 10^3/uL (0.3-0.8) Absolute Immature Granulocyte (auto 0.06 10^3 u/L (0-2) Immature Granulocytes % 0.60 % (0.00-0.50) H Eosinophils % 0.5 % (0.0-5.0) Basophils % 0.1 % (0.0-0.2) Basophils # 0.0 10^3/uL (0.0-0.1) Eosinophil Count 0.1 10^3/uL (0.0-0.2) Prothrombin Time 10.9 SEC (9.4-11.5) Prothrombin Time INR (Non-Therap) 1.1 Activated Partial Thromboplast Time 21.8 SEC (24.67-30.72) D-Dimer 1.66 mg/L (0.19-0.49) *H Sodium Level 142 mmol/L (132-145) Potassium Level 3.3 mmol/L (3.6-5.2) L Chloride Level 104.0 mmol/L (96-109) Carbon Dioxide Level 27.3 mmol/L (20.0-32) Anion Gap 14.0 Blood Urea Nitrogen 18 mg/dL (7-18) Creatinine 1.16 mg/dL (0.59-1.40) Estimated GFR () 56.4 (>/=60) BUN/Creatinine Ratio 15.0 Glucose Level 98 mg/dL (70-110) Calcium Level 8.6 mg/dL (8.4-10.5) Total Bilirubin 0.3 mg/dL (0.2-1.0) Aspartate Amino Transferase (AST) 12 U/L (0-35) Alanine Aminotransferase (ALT) 16 U/L (12-78) Alkaline Phosphatase 101 U/L (50-136) Total Creatine Kinase 42 U/L (26-192) Troponin I < 0.02 ng/mL (0.00-0.05) Pro-B-Type Natriuretic Peptide 1137 pg/mL (0-125) H Total Protein 7.1 g/dL (6.4-8.2) Albumin 3.1 g/dL (3.4-5.0) L Globulin 4.0 Helicobacter pylori Screen NEGATIVE (NEGATIVE) Blood Gas Sample Site LEFT BRACHIAL ARTRY Blood pH 7.467 (7.350-7.450) Blood Gas PCO2 40.0 mmHg (35.0-45.0) Blood Gas PO2 55.2 mmHg (80.0-100.0) L Blood Gas HCO3 28.3 mmol/L (22.0-26.0) H Blood Gas Base Excess 4.3 mmol/L (-2.0-2.0) H Tim Test N/A Arterial Blood Oxygen Saturation 90.3 % (94.0-97.00) L Deoxyhemoglobin 9.6 % (0.0-5.0) H Carboxyhemoglobin 0.9 % (0.0-3.9) Methemoglobin 0.4 % (0.00-5.0) Total Hemoglobin 14.2 % (12.0-17.8) Total Oxygen Concentration 17.8 % (13.5-17.5) H Lactic Acid (Blood Gas) 2.0 mmol/1 (0.50-2.0) Blood Gas Temperature 37 FiO2 21 % (20-101) Bicarbonate 29.5 mmol/L (23-27) H EKG/XRAY/CT/US EKG: NSR, no ST T wave changes Consult/PCP Time Consult/PCP Called: 11:33 Course Sepsis Screening Results: Posi: POSITIVE SEPSIS RISK Sepsis Qualifier/Stage: NO DEFINITE RISK Duration or Total Time Spent w: 20 Vitals & review Data Vital Sign - Last 24 Hours 02/04/19 02/05/19 02/05/19 02/05/19 08:45 10:14 10:44 10:44 Temp 98.1 98.0 98.1 Pulse 101 97 97 97 Resp 18 18 18 B/P (MAP) 170/96 (120) Pulse Ox 94 94 O2 Delivery Room Air Room Air 02/05/19 02/05/19 02/05/19 02/05/19 10:55 11:04 11:05 11:32 Pulse 95 95 96 Resp 28 28 28 28 Pulse Ox 91 91 91 91 Laboratory Tests Test 02/05/19 10:35 02/05/19 10:57 White Blood Count 9.9 10^3/uL Red Blood Count 4.70 10^6/uL Hemoglobin 13.5 g/dL Hematocrit 43.6 % Mean Corpuscular Volume 92.8 fL Mean Corpuscular Hemoglobin 28.7 pg Mean Corpuscular Hemoglobin Concent 31.0 g/dL Red Cell Distribution Width 14.6 % Platelet Count 262 10^3/uL Mean Platelet Volume 8.7 fL Neutrophils (%) (Auto) 80.7 % Lymphocytes (%) (Auto) 10.1 % Monocytes (%) (Auto) 8.0 % Neutrophils # (Auto) 8.0 10^3/uL Lymphocytes # (Auto) 1.0 10^3/uL Monocytes # (Auto) 0.8 10^3/uL Absolute Immature Granulocyte (auto 0.06 10^3 u/L Immature Granulocytes % 0.60 % Eosinophils % 0.5 % Basophils % 0.1 % Basophils # 0.0 10^3/uL Eosinophil Count 0.1 10^3/uL Prothrombin Time 10.9 SEC Prothrombin Time INR (Non-Therap) 1.1 Activated Partial Thromboplast Time 21.8 SEC D-Dimer 1.66 mg/L Sodium Level 142 mmol/L Potassium Level 3.3 mmol/L Chloride Level 104.0 mmol/L Carbon Dioxide Level 27.3 mmol/L Anion Gap 14.0 Blood Urea Nitrogen 18 mg/dL Creatinine 1.16 mg/dL Estimated GFR () 56.4 BUN/Creatinine Ratio 15.0 Glucose Level 98 mg/dL Calcium Level 8.6 mg/dL Total Bilirubin 0.3 mg/dL Aspartate Amino Transf (AST/SGOT) 12 U/L Alanine Aminotransferase (ALT/SGPT) 16 U/L Alkaline Phosphatase 101 U/L Total Creatine Kinase 42 U/L Troponin I < 0.02 ng/mL Pro-B-Type Natriuretic Peptide 1137 pg/mL Total Protein 7.1 g/dL Albumin 3.1 g/dL Globulin 4.0 Helicobacter pylori Screen NEGATIVE Blood Gas Sample Site LEFT BRACHIAL ARTRY Blood Gas pH 7.467 Blood Gas PCO2 40.0 mmHg Blood Gas PO2 55.2 mmHg Blood Gas HCO3 28.3 mmol/L Blood Gas Base Excess 4.3 mmol/L Tim Test N/A Arterial Blood Oxygen Saturation 90.3 % Deoxyhemoglobin 9.6 % Carboxyhemoglobin 0.9 % Methemoglobin 0.4 % Total Hemoglobin 14.2 % Total Oxygen Concentration 17.8 % Lactic Acid (Blood Gas) 2.0 mmol/1 Blood Gas Temperature 37 FiO2 21 % Bicarbonate 29.5 mmol/L Current Medications Medications (Trade) Dose Ordered Sig/Fani PRN Reason Start Time Stop Time Status Last Admin Albuterol/ Ipratropium (Duoneb 0.5 Mg-3 Mg/3 ml Soln) 3 ml STAT STAT 02/05/19 11:13 02/05/19 11:14 UNV 02/05/19 11:30 Dexamethasone Sodium Phosphate (Decadron) 4 mg STAT STAT 02/05/19 11:13 02/05/19 11:14 UNV 02/05/19 11:30 Sepsis Infection Criteria Pres: None LEVEL 1 SEPSIS INFECTION CRITE: ABX Therapy, Recent Invasive Procedure LEVEL 2-SIRS (LIST ALL THAT AP: RR>20/min, HR>90/min Cardiovascular Evidence: Not Assessed or None Hematologic Evidence: None/Not assessed Hepatic Evidence: None/Not assessed Metabolic Evidence: None/Not assessed Neurological Evidence: None/Not assessed Respiratory Evidence: Need for O2 to keep>90%, O2 SAT<90room air Renal Evidence: None/Not assessed O2 Sat by Pulse Oximetry: 94 Departure Time of Disposition: 11:33 Disposition: 09 ADMITTED INPATIENT Impression: Primary Impression: Asthma with acute exacerbation Condition: Improved Referrals: MARCIE COYNE MD (PCP) PRIMARY CARE PROVIDER Duration or Time Spent with Pa: 20 MIN AMOR ANDREW MD Feb 05, 2019 11:10
[2019-02-05] MEDS ORDERED: DECADRON IH STA (11:13)
[2019-02-05] MEDS ORDERED: DUONEB 0.5 MG-3 MG/3 ML SOLN IH STA (11:13)
[2019-02-05] MEDS ORDERED: VENTOLIN IH ONE (11:16)
--- NOTE | 2019-02-05 11:35 | DIREP ---
PROCEDURE:CHEST 2 VIEWS COMPARISON:[facility], CR, XRAY CHEST SINGLE VW, 02/01/2019, 09:20 AM. [facility], CR, XRAY CHEST SINGLE VW, 06/28/2018, 03:54 PM. [facility], CR, XRAY CHEST SINGLE VW, 06/22/2018, 05:53 AM. INDICATIONS:asthma exacerbation FINDINGS: LUNGS/PLEURA:Stable mild diffuse interstitial prominence. Hyperinflated lungs without focal consolidation or effusion. VASCULATURE:Normal. Unremarkable pulmonary vasculature. CARDIAC:Normal. No cardiac silhouette abnormality or cardiomegaly. MEDIASTINUM:Normal. No visible mass or adenopathy. BONES:Stable left humeral arthroplasty hardware. OTHER:Negative. CONCLUSION:Hyperinflated lungs with stable mild diffuse interstitial prominence. This may represent COPD in the proper clinical setting. Dictated by: Mario Zhang M.D. on 02/05/2019 at 11:30 AM
[2019-02-05] MEDS ORDERED: ATIVAN PO PRN ×2 (12:00→22:00)
[2019-02-05] MEDS ORDERED: DUONEB 0.5 MG-3 MG/3 ML SOLN IH SCH (12:00)
[2019-02-05] MEDS ORDERED: ATIVAN PO STA (12:28)
[2019-02-05] MEDS ORDERED: ATIVAN ONE (12:30)
--- NOTE | 2019-02-05 12:57 | NUR ---
ICU PT TO ICU AT THIS TIME VIA TRANSPORT CHAIR. REPORT TO AUGUSTO BILLINGS. BELONGINGS SENT WITH PT.
--- NOTE | 2019-02-05 13:00 | NUR ---
ARRIVAL TO ICU ARRIVED VIA WHEELCHAIR TO ICU BED 2. VS ASSESSED. REPORT GIVEN BY Dayo URIARTE RN IN ED PRIOR TO ARRIVAL. Addendum: 02/05/19 at 1352 by Atif Jansen RN - NUT FEEDER ADMITTED MEDSURG OVERFLOW
--- NOTE | 2019-02-05 13:58 | NUR ---
DR. YUEN NOTIFIED OF ELEVATED BP 195/95 NEW ORDERS GIVEN: GIVE HYDRALAZINE 10MG IV Q6 PRN FOR ELEVATED BP 160/100 GIVE CLONIDINE 0.1MG PO Q6 PRN FOR ELEVATED BP 160/100 GIVE LORAZEPAM 0.5MG IV Q6 PRN FOR ANXIETY.
[2019-02-05] MEDS ORDERED: APRESOLINE IV PRN (14:00)
[2019-02-05] MEDS ORDERED: ATIVAN IV PRN (14:00)
[2019-02-05] MEDS ORDERED: CATAPRES PO PRN (14:00)
[2019-02-05] MEDS: SOLU-MEDROL IV SCH ×2 (14:06→21:15)
[2019-02-05] MEDS: DUONEB 0.5 MG-3 MG/3 ML SOLN IH SCH ×2 (14:45→21:56)
[2019-02-05] MEDS: ZOFRAN IV PRN (14:52)
--- NOTE | 2019-02-05 18:35 | NUR ---
REPORT FROM Rob ESQUIVEL RN. ASSUMED CARE. SEE ASSESSMENT
--- NOTE | 2019-02-05 18:40 | NUR ---
DR YUEN AT BEDSIDE RECEIVED THE FF ORDERS: LACTULOSE 30GM PO ONE TIME DOSE COLACE 100 MG PO BID PROTONIX 40 MG IV DAILY PEPCID 20 MG PO BID PHENERGAN 12.5 MG IV Q6 PRN RBVO
--- NOTE | 2019-02-05 18:50 | NUR ---
VOMITED TWICE SMALL TO MODERATE AMOUNT OF GASTRIC CONTENT NOTED. ORAL CARE DONE.
[2019-02-05] MEDS ORDERED: PHENERGAN ONE (19:00)
[2019-02-05] MEDS ORDERED: NS 25ML 25 ML IV ONE (19:00)
[2019-02-05] MEDS ORDERED: CEPHULAC PO ONE (19:30)
[2019-02-05] MEDS: COLACE PO SCH (19:30)
[2019-02-05] MEDS ORDERED: PHENERGAN IV PRN (19:30)
[2019-02-05] MEDS: PEPCID PO SCH (19:30)
[2019-02-05] MEDS ORDERED: ZITHROMAX 500 MG in NS 250ML 250 ML IV SCH (22:00)
[2019-02-05] MEDS ORDERED: VENTOLIN IH PRN (22:00)
[2019-02-05] MEDS ORDERED: LOVENOX SQ SCH (22:00)
[2019-02-05] MEDS ORDERED: NS 250ML 250 ML IV ONE (22:10)
--- NOTE | 2019-02-05 22:20 | HPH ---
ADMIT DATE: 02/05/2019 CHIEF COMPLAINT: Shortness of breath and restlessness. HISTORY OF PRESENT ILLNESS: This is a 68-year-old female with a past medical history of asthma, generalized anxiety, and hypertension. She was just in the hospital at [facility] for the last 3 days, being discharged on 02/04/2019. She states that she was at home alone last night and began to feel very anxious and nervous as well as shortness of breath. She tried nebulizer without any success. She states that even though she felt much better and almost back to normal when she left the hospital, the shortness of breath came back in the middle of the night and she was also very anxious at this time. She presented to the hospital this morning with similar complaints. Upon arrival, she was found to have minimal wheezing, but to be noticeably dyspneic. The patient was very anxious. She states that it felt like her throat was shutting off and she complained of a severe headache at that time as well. She was also very worried about her blood pressure as she said that was elevated at home. PAST MEDICAL HISTORY: For full history please see H and P from previous admission. REVIEW OF SYSTEMS: No significant changes in review of systems from previous admission. OBJECTIVE: VITAL SIGNS: Pulse 101, temperature 98.1, respirations 18, blood pressure 170/96, pulse ox 94% on room air. GENERAL: This is an anxious-appearing female, in no acute distress. HEENT: Atraumatic, normocephalic. NECK: No bruits, goiter, mass or adenopathy. There is no stridor. LUNGS: Mild decrease in breath sounds bilaterally. I hear no wheezing on my lung examination in all lung pearson. HEART: Mild tachycardia, but regular rhythm. No murmurs. ABDOMEN: Soft, nontender, nondistended. Positive bowel sounds. No masses felt. EXTREMITIES: Warm and well perfused without evidence of edema, cyanosis or clubbing. NEUROLOGIC: Cranial nerves 2-12 are grossly intact and symmetric. SKIN: Intact. LABORATORY DATA: WBC 9.9, hemoglobin 13.5, hematocrit 43.6, platelets 262. Sodium 142, potassium 3.3, BUN 18, creatinine 1.16. A pH 7.46, pCO2 of 40, pO2 of 55, bicarbonate 28.3. Chest x-ray -- hyperinflated lungs with stable mild diffuse interstitial prominence. ASSESSMENT: 1. Shortness of breath. 2. Hypertensive urgency. 3. Generalized anxiety/panic disorder. 4. Resolving asthma exacerbation. 5. Hypokalemia. 6. Hypoxemia. PLAN: 1. The patient is admitted to [facility] for further evaluation and management. 2. Continue patient on corticosteroids as she was on a tapering dose at home when she was discharged yesterday. 3. We will keep patient on azithromycin as she was discharged on this as well. 4. The patient has clear lungs and no hypoxia during my exam. I think severe generalized anxiety was contributing to this significantly. We will continue p.r.n. lorazepam and start her on SNRI. 5. Adjust her blood pressure medication and we will also give p.r.n. for exacerbation. Jairo Chinchilla MD DR: DEVAUGHN/ina JOB# [id number]
[2019-02-06] MEDS: DUONEB 0.5 MG-3 MG/3 ML SOLN IH SCH ×3 (02:37→15:09)
[2019-02-06 03:00] VITALS: BP 153/83
[2019-02-06 05:02] LABS: BASOPHIL % 0.1 % (0.0-0.2); HEMOGLOBIN 13.2 g/dL (12.0-15.0); LYMPHOCYTES # 0.5 10^3/uL (1.0-4.8); MEAN CELL HGB 28.4 pg (26-34); MEAN CORP VOLUME 91.6 fL (78-100); MEAN PLATELET VOLUME 9.1 fL (7.8-11.0); MONOCYTES # 0.2 10^3/uL (0.3-0.8); MONOCYTES % 2.1 % (5.0-12.0); NEUTROPHIL # 7.8 10^3/uL (1.8-7.7); NEUTROPHILS % 90.6 % (41.0-85.0); RED CELL DISTRIBUTION WIDTH 14.6 % (11.5-14.5); WHITE BLOOD CELL 8.7 10^3/uL (4.5-11.0)
[2019-02-06] MEDS: SOLU-MEDROL IV SCH ×2 (05:02→14:25)
[2019-02-06 05:18] LABS: CALCIUM 8.8 mg/dL (8.4-10.5); CARBON DIOXIDE 28.8 mmol/L (20.0-32)
--- NOTE | 2019-02-06 05:20 | NUR ---
ARRIVAL PATIENT ARRIVED TO MED/SURG FROM ICU. REPORT RECEIVED FROM AUGUSTO APPIAH. ASSUMED CARE OF PATIENT.
--- NOTE | 2019-02-06 05:20 | NUR ---
TRANSFERRED TO 304 ACCOMPANIED PATIENT TO 304 VIA WHEELCHAIR. ASSISTED PATIENT FROM WHEELCHAIR TO BED. REPORT GIVEN TO TAY CASAS.
[2019-02-06 06:30] LABS: LYMPHOCYTE 6 % (25-36); MONOCYTE 6 % (3-9); SEGMENTED NEUTROPHILS 88 % (31-76)
[2019-02-06 07:38] VITALS: BP 159/83
[2019-02-06] MEDS: COLACE PO SCH (08:24)
[2019-02-06] MEDS: PEPCID PO SCH (08:24)
[2019-02-06] MEDS ORDERED: PROTONIX PO SCH (09:00)
[2019-02-06] MEDS ORDERED: PROTONIX IV IV SCH (09:00)
[2019-02-06] MEDS ORDERED: COZAAR PO SCH (09:00)
[2019-02-06] MEDS ORDERED: KLOR-CON 10 PO SCH (09:00)
[2019-02-06] MEDS ORDERED: WELLBUTRIN XL PO SCH (09:00)
[2019-02-06] MEDS ORDERED: EFFEXOR XR PO SCH (09:00)
[2019-02-06] MEDS ORDERED: CALAN PO SCH (09:00)
[2019-02-06] MEDS: ZOFRAN IV PRN ×2 (10:17→14:25)
[2019-02-06] MEDS ORDERED: ATIVAN PO PRN (10:30)
--- NOTE | 2019-02-06 10:45 | NUR ---
DISCHARGE PLAN CASE MANAGEMENT VISITED WITH PATIENT CONCERNING DISCHARGE PLAN AND NEEDS. LIVES AT HOME WITH SPOUSE. INDEPENDENT OF ADLS. HAS DME INCLUDING WALKER AND CANE. DENIES NEED FOR HOME OXYGEN. DR. COYNE IS PCP. HAS FINANCIAL ABILITY TO PAY FOR MEDICATION IF NEEDED UPON DISCHARGE. [employer] LETTER PRESENTED, SIGNED AND PLACED ON CHART. CM EDUCATED PATIENT ON HOME HEALTH, OUTPATIENT SERVICES, AND SNF. DENIES NEED FOR SERVICES AT THIS TIME. REFUSAL LETTER PRESENT SIGNED AND PLACED ON CHART. DISCHARGE PLAN IS TO DISCHARGE HOME WITH SPOUSE AND RESUME SELF CARE. CM WILL CONTINUE TO FOLLOW FOR DISCHARGE NEEDS.
[2019-02-06 11:17] VITALS: BP 121/58
[2019-02-06] MEDS ORDERED: SOLU-CORTEF ONE (12:22)
--- NOTE | 2019-02-06 14:44 | NUR ---
ROOM AIR CHALLENGE PT PLACED ON ROOM AT 1415. SPO2 CHECKED AT 1425 AND 90% ON ROOM AIR. PT UP TO AMBULATE AT 1426. PT AMBULATED 200 FEET. PT BACK TO ROOM. SPO2 86% OM ROOM AIR. PT PLACED ON O2. SPO2 INCREASED TO 94% ON 2LPM PER NC.
[2019-02-06] MEDS ORDERED: LOSA25TA12 PO (15:26)
--- NOTE | 2019-02-06 15:30 | PRM.DC ---
Discharge Summary Date of Discharge: Feb 06, 2019 Time of Request to Discharge: 15:20 Reason for Visit: Dyspnea Hospital Course Patient was admitted for Asthma exacerbation. Patient treated with steroids, abx, nebs, o2 support and d/c to home only to return within 24 hours. Patient continued on IV steroids, IV abx, nebs, and supportive care with improvement in symptoms. Patient was not requiring O2 and wheezing had improved; however, patient was desatting with ambulation. Patient approved for Home O2 and will be d/c on home medications. She will continue PO course of steroids/abx and Home O2. Patient will need close f/u with Bobbin Disker, [employer] Salesperson, and PCP within 1-2 weeks. Patient given strict return precautions. Patient History: Alzheimer's disease PATERNAL AUNT, Asthma 33 FATHER, , Age:72 Cerebrovascular disorder PATERNAL GRANDMOTHER, Chronic obstructive pulmonary disease 33 FATHER, , Age:72 Congestive heart failure 33 FATHER, , Age:72 Diabetes mellitus PATERNAL GRANDMOTHER, Hypertension 32 MOTHER, , Age:52 33 FATHER, , Age:72 No known health problems V19 CHILD No Family History of: Diabetes insipidus Parkinson's disease General: Alert, Oriented X3, Cooperative, No acute distress HEENT: Atraumatic, PERRLA, EOMI, Mucous membr. moist/pink Neck: Supple, No JVD Lungs: Normal air movement, Other (mild wheezing) Heart: Regular rate, Normal S1, Normal S2, No murmurs Abdomen: Normal bowel sounds, Soft, No tenderness Extremities: No edema, Normal pulses, No tenderness/swelling Skin: No rashes, No breakdown, No significant lesion Neuro: Normal gait, Normal speech, Strength at 5/5 X4 ext, Normal tone, Sensation intact, Cranial nerves 3-12 NL Psych/Mental Status: Mental status NL, Mood NL Scheduled Ascorbic Acid (Vitamin C), 1,000 MG PO DAILY24, (Reported) Atorvastatin 20MG (Lipitor 20MG), 1 TAB PO HS, (Reported) Azithromycin (Azithromycin), 250 MG PO DAILY24 Bupropion Hcl (Wellbutrin Xl), 1 TAB PO DAILY, (Reported) Fluticasone/Umeclidin/Vilanter (Trelegy Ellipta 100-62.5-25), 1 PUFF PO DAILY24, (Reported) Losartan Potassium (Losartan Potassium), 25 MG PO DAILY Pantoprazole Sodium (Pantoprazole Sodium), 1 TAB PO DAILY, (Reported) Prednisone (Prednisone), 40 MG PO DAILY24 Verapamil Hcl (Verapamil Er), 1 CAP PO DAILY, (Reported) [Allergy Shots], 1 VIAL SQ Q7D, (Reported) Scheduled PRN Albuterol Sulfate (Albuterol Sulfate), 2.5 MG IH TID PRN for WHEEZING, (Reported) Ipratropium/Albuterol Sulfate (Combivent Respimat Inhal [place]), Unknown Dose IH RTQID PRN for SHORTNESS OF BREATH, (Reported) Lorazepam (Ativan), 1 MG PO Q6 PRN for AGITATION Sepsis Evaluation @ Discharge Vital Sign - Last 24 Hours 02/04/19 02/05/19 02/05/19 02/05/19 08:45 10:14 10:44 10:44 Temp 98.1 98.0 98.1 Pulse 101 97 97 97 Resp 18 18 18 B/P (MAP) 170/96 (120) Pulse Ox 94 94 O2 Delivery Room Air Room Air 02/05/19 02/05/19 02/05/19 02/05/19 10:55 11:04 11:05 11:32 Pulse 95 95 96 Resp 28 28 28 28 Pulse Ox 91 91 91 91 Laboratory Tests Test 02/05/19 10:35 02/05/19 10:57 White Blood Count 9.9 10^3/uL Red Blood Count 4.70 10^6/uL Hemoglobin 13.5 g/dL Hematocrit 43.6 % Mean Corpuscular Volume 92.8 fL Mean Corpuscular Hemoglobin 28.7 pg Mean Corpuscular Hemoglobin Concent 31.0 g/dL Red Cell Distribution Width 14.6 % Platelet Count 262 10^3/uL Mean Platelet Volume 8.7 fL Neutrophils (%) (Auto) 80.7 % Lymphocytes (%) (Auto) 10.1 % Monocytes (%) (Auto) 8.0 % Neutrophils # (Auto) 8.0 10^3/uL Lymphocytes # (Auto) 1.0 10^3/uL Monocytes # (Auto) 0.8 10^3/uL Absolute Immature Granulocyte (auto 0.06 10^3 u/L Immature Granulocytes % 0.60 % Eosinophils % 0.5 % Basophils % 0.1 % Basophils # 0.0 10^3/uL Eosinophil Count 0.1 10^3/uL Prothrombin Time 10.9 SEC Prothrombin Time INR (Non-Therap) 1.1 Activated Partial Thromboplast Time 21.8 SEC D-Dimer 1.66 mg/L Sodium Level 142 mmol/L Potassium Level 3.3 mmol/L Chloride Level 104.0 mmol/L Carbon Dioxide Level 27.3 mmol/L Anion Gap 14.0 Blood Urea Nitrogen 18 mg/dL Creatinine 1.16 mg/dL Estimated GFR () 56.4 BUN/Creatinine Ratio 15.0 Glucose Level 98 mg/dL Calcium Level 8.6 mg/dL Total Bilirubin 0.3 mg/dL Aspartate Amino Transf (AST/SGOT) 12 U/L Alanine Aminotransferase (ALT/SGPT) 16 U/L Alkaline Phosphatase 101 U/L Total Creatine Kinase 42 U/L Troponin I < 0.02 ng/mL Pro-B-Type Natriuretic Peptide 1137 pg/mL Total Protein 7.1 g/dL Albumin 3.1 g/dL Globulin 4.0 Helicobacter pylori Screen NEGATIVE Blood Gas Sample Site LEFT BRACHIAL ARTRY Blood Gas pH 7.467 Blood Gas PCO2 40.0 mmHg Blood Gas PO2 55.2 mmHg Blood Gas HCO3 28.3 mmol/L Blood Gas Base Excess 4.3 mmol/L Tim Test N/A Arterial Blood Oxygen Saturation 90.3 % Deoxyhemoglobin 9.6 % Carboxyhemoglobin 0.9 % Methemoglobin 0.4 % Total Hemoglobin 14.2 % Total Oxygen Concentration 17.8 % Lactic Acid (Blood Gas) 2.0 mmol/1 Blood Gas Temperature 37 FiO2 21 % Bicarbonate 29.5 mmol/L Current Medications Medications (Trade) Dose Ordered Sig/Fani PRN Reason Start Time Stop Time Status Last Admin Albuterol/ Ipratropium (Duoneb 0.5 Mg-3 Mg/3 ml Soln) 3 ml STAT STAT 02/05/19 11:13 02/05/19 11:14 UNV 02/05/19 11:30 Dexamethasone Sodium Phosphate (Decadron) 4 mg STAT STAT 02/05/19 11:13 02/05/19 11:14 UNV 02/05/19 11:30 Course Sepsis Screening Results: Posi: NEGATIVE Sepsis Qualifier/Stage: NO DEFINITE RISK Duration or Total Time Spent w: 20 MIN Vitals & review Data Vital Sign - Last 24 Hours 9/22/02/05/19 02/05/19 02/05/19 08:45 10:14 10:44 10:44 Temp 98.1 98.0 98.1 Pulse 101 97 97 97 Resp 18 18 18 B/P (MAP) 170/96 (120) Pulse Ox 94 94 O2 Delivery Room Air Room Air 02/05/19 02/05/19 02/05/19 02/05/19 10:55 11:04 11:05 11:32 Pulse 95 95 96 Resp 28 28 28 28 Pulse Ox 91 91 91 91 Laboratory Tests Test 02/05/19 10:35 02/05/19 10:57 White Blood Count 9.9 10^3/uL Red Blood Count 4.70 10^6/uL Hemoglobin 13.5 g/dL Hematocrit 43.6 % Mean Corpuscular Volume 92.8 fL Mean Corpuscular Hemoglobin 28.7 pg Mean Corpuscular Hemoglobin Concent 31.0 g/dL Red Cell Distribution Width 14.6 % Platelet Count 262 10^3/uL Mean Platelet Volume 8.7 fL Neutrophils (%) (Auto) 80.7 % Lymphocytes (%) (Auto) 10.1 % Monocytes (%) (Auto) 8.0 % Neutrophils # (Auto) 8.0 10^3/uL Lymphocytes # (Auto) 1.0 10^3/uL Monocytes # (Auto) 0.8 10^3/uL Absolute Immature Granulocyte (auto 0.06 10^3 u/L Immature Granulocytes % 0.60 % Eosinophils % 0.5 % Basophils % 0.1 % Basophils # 0.0 10^3/uL Eosinophil Count 0.1 10^3/uL Prothrombin Time 10.9 SEC Prothrombin Time INR (Non-Therap) 1.1 Activated Partial Thromboplast Time 21.8 SEC D-Dimer 1.66 mg/L Sodium Level 142 mmol/L Potassium Level 3.3 mmol/L Chloride Level 104.0 mmol/L Carbon Dioxide Level 27.3 mmol/L Anion Gap 14.0 Blood Urea Nitrogen 18 mg/dL Creatinine 1.16 mg/dL Estimated GFR () 56.4 BUN/Creatinine Ratio 15.0 Glucose Level 98 mg/dL Calcium Level 8.6 mg/dL Total Bilirubin 0.3 mg/dL Aspartate Amino Transf (AST/SGOT) 12 U/L Alanine Aminotransferase (ALT/SGPT) 16 U/L Alkaline Phosphatase 101 U/L Total Creatine Kinase 42 U/L Troponin I < 0.02 ng/mL Pro-B-Type Natriuretic Peptide 1137 pg/mL Total Protein 7.1 g/dL Albumin 3.1 g/dL Globulin 4.0 Helicobacter pylori Screen NEGATIVE Blood Gas Sample Site LEFT BRACHIAL ARTRY Blood Gas pH 7.467 Blood Gas PCO2 40.0 mmHg Blood Gas PO2 55.2 mmHg Blood Gas HCO3 28.3 mmol/L Blood Gas Base Excess 4.3 mmol/L Tim Test N/A Arterial Blood Oxygen Saturation 90.3 % Deoxyhemoglobin 9.6 % Carboxyhemoglobin 0.9 % Methemoglobin 0.4 % Total Hemoglobin 14.2 % Total Oxygen Concentration 17.8 % Lactic Acid (Blood Gas) 2.0 mmol/1 Blood Gas Temperature 37 FiO2 21 % Bicarbonate 29.5 mmol/L Current Medications Medications (Trade) Dose Ordered Sig/Fani PRN Reason Start Time Stop Time Status Last Admin Albuterol/ Ipratropium (Duoneb 0.5 Mg-3 Mg/3 ml Soln) 3 ml STAT STAT 02/05/19 11:13 02/05/19 11:14 UNV 02/05/19 11:30 Dexamethasone Sodium Phosphate (Decadron) 4 mg STAT STAT 02/05/19 11:13 02/05/19 11:14 UNV 02/05/19 11:30 Sepsis Infection Criteria Pres: None LEVEL 1 SEPSIS INFECTION CRITE: Cough/Shortness of Breath LEVEL 2-SIRS (LIST ALL THAT AP: None/Not assessed Cardiovascular Evidence: Not Assessed or None Hematologic Evidence: None/Not assessed Hepatic Evidence: None/Not assessed Metabolic Evidence: None/Not assessed Neurological Evidence: None/Not assessed Respiratory Evidence: O2 SAT<90room air Renal Evidence: None/Not assessed O2 Sat by Pulse Oximetry: 94 Oxygen Flow Rate: 2.00 Plan Discharge Date: Feb 06, 2019 Dicharge DX: Asthma exacerbation Discharge Disposition: Stable Plan Ok to d/c to home self care on Home O2 medications: per med rec list Diet: Cardiac Activity: as tolerated, use Home O2 for ambulation/exertion F/U with PCP/Bobbin Disker/[employer] Salesperson within 1-2 weeks Return to care for any worsening/concerning symptoms GUDELIA SIMMONS MD Feb 06, 2019 15:30
[2019-02-06 16:54] VITALS: BP 134/71
[2019-02-06 16:57] VITALS: BP 134/71
--- NOTE | 2019-02-06 17:10 | NUR ---
DISCHARGE PT DISCHARGED AT THIS TIME. EDUCATED PT ON HOME O2, NEW PRESCRIPTION FOR LOSARTAN, AND FOLLOW UP APPOINTMENTS. PT STATES UNDERSTANDING. NO QUESTIONS VOICED. PT AMBULATED OFF UNIT WITH HOME O2 IN STABLE CONDITION.
[2019-02-06] MEDS ORDERED: LIPITOR PO SCH (21:00)
== END 2019-02-06 16:45 | disposition home or self-care (01) ==
LOC: ER 10:10 → ICU 11:43 → INTOOBSV 11:43 → MS 02-06 05:20
PROVIDERS: ADMIT Internal Medicine; ATTEND Internal Medicine
DX: J45.901 Unspecified asthma with (acute) exacerbation (principal); I16.0 Hypertensive urgency; F41.1 Generalized anxiety disorder; F41.0 Panic disorder [episodic paroxysmal anxiety]; Z90.710 Acquired absence of both cervix and uterus; Z90.49 Acquired absence of other specified parts of digestive tract
CPT/HCPCS: 36415 ×2; 36600; 71046; 80053 ×2; 82550; 82803; 83880; 84484; 85025 ×2; 85379; 85610; 85730; 86677; 93005; 94640 ×7; 96365; 96372; 96375; 96376 ×2; 99284; C9113; G0378 ×27; J0360; J1100; J1650; J1720; J2405 ×3; J2550; J2920 ×4; J3490; J7050; J7613; J7620 ×6; 99285; J0456

== ENCOUNTER 2020-09-14 10:35 | Emergency (ER) | payer MEDICARE ==
[~2020-09-14] VITALS: Ht 149.9 cm; Wt 88.0 kg
[~2020-09-14 10:35] MED LIST changes: +ASCO100016 PO; -ASCO10002 PO; +LOSA25TA12 PO; -PANT40TA5 PO; +PANT40TA6 PO
[2020-09-14 10:49] VITALS: BP 194/73
[2020-09-14 10:53] VITALS: BP 194/73
--- NOTE | 2020-09-14 10:55 | NUR ---
ARRIVAL PATIENT ARRIVED TO ED6 VIA W/C WITH FAMILY, C/O OF LEFT UPPER THIGH PAIN FOR THE PAST 2 DAYS, DENIES ANY INJURY AT THIS TIME, PAIN CONTINUES TODAY, PATIENT DECIDED TO COME TO THE ED FOR EVAL, DOCTOR SLOAN NOTIFIED OF PATIENT'S ARRIVAL.
[2020-09-14] MEDS ORDERED: SENSORCAINE 0.5% VIAL ONE (11:13)
[2020-09-14] MEDS ORDERED: DEPO-MEDROL ONE (11:14)
[2020-09-14 11:29] VITALS: BP 153/79
[2020-09-14] MEDS ORDERED: DEPO-MEDROL IM STA (11:33)
--- NOTE | 2020-09-14 11:36 | ER.PDOC ---
General Chief Complaint: Extremities Stated Complaint: LEFT LEG PAIN Time seen by MD: 10:10 Source: patient Exam Limitations: no limitations History of Present Illness Initial Comments This 69-year-old female comes in with complaint of left hip pain that is been bothering her for the last 4 to 5 days. Patient thinks she strained it getting up off the floor after giving her granddaughter a bath. Her pain is right over the greater trochanter area. The pain seems to radiate down to her knee. 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 She was concerned that maybe she did something to her knee. There is no swelling or inflammation in the knee itself. Noted in the knee is completely nontender. On quick exam, all of her pain was up in her trochanter area of the left hip. Onset: last week Recent Injury: Yes (possible strain from getting up) Where: home Severity: severe Exacerbated By: walking movement Relieved By: nothing Allergies: Coded Allergies: Penicillins (Unverified Allergy, Severe, CAN'T BREATH, SWELLS THROAT SHUT, SEVERE HEADACHE,RASH, 12/05/18) Latex, Natural Rubber (Verified Adverse Reaction, Severe, PELLS SKIN OFF, 12/05/18) Home Meds Active Scripts Losartan Potassium (LOSARTAN POTASSIUM) 25 Mg Tablet, 25 MG PO DAILY for 30 Days, #30 TAB 0 Refills Prov:GUDELIA SIMMONS MD 02/06/19 Prednisone (PREDNISONE) 10 Mg Tablet, 40 MG PO DAILY24 for 5 Days, TAB Prov:SAUL YUEN MD 02/04/19 Azithromycin (AZITHROMYCIN) 250 Mg Tablet, 250 MG PO DAILY24 for 5 Days Prov:SAUL YUEN MD 02/04/19 Lorazepam (ATIVAN) 1 Mg Tablet, 1 MG PO Q6 PRN for AGITATION for 14 Days, #14 TAB Prov:SAUL YUEN MD 02/04/19 Reported Medications Ascorbic Acid (VITAMIN C) 1,000 Mg Tablet, 1000 MG PO DAILY24, TABLET 12/05/18 Atorvastatin 20MG (LIPITOR 20MG) 20 Mg Tablet, 1 TAB PO HS, #90 TAB 1 Refill 12/05/18 Bupropion Hcl (WELLBUTRIN XL) 150 Mg Tab.er.24h, 1 TAB PO DAILY, #30 TAB 12/05/18 Verapamil Hcl (VERAPAMIL ER) 240 Mg Cap24h.pel, 1 CAP PO DAILY, #30 CAP 5 Refills 12/05/18 Pantoprazole Sodium (PANTOPRAZOLE SODIUM) 40 Mg Tablet.dr, 1 TAB PO DAILY, #30 TAB 3 Refills 12/05/18 Fluticasone/Umeclidin/Vilanter (Trelegy Ellipta 100-62.5-25) 100-62.5 Blst.w.dev, 1 PUFF PO DAILY24 12/05/18 [Allergy Shots] No Conflict Check, 1 VIAL SQ Q7D ON Sundays12/05/18 Albuterol Sulfate (ALBUTEROL SULFATE) 2.5 Mg/3 Ml Vial.neb, 2.5 MG IH TID PRN for WHEEZING 09/13/13 Past Medical History Medical History: asthma, hypertension Surgical History: cholecystectomy, hysterectomy, knee, shoulder Social History Smoking: non-smoker Alcohol Use: none Drug Use: none Review of Systems Respiratory: cough, wheezing (Patient states that she is always wheezing from her asthma. She states that this is basically her baseline) Musculoskeletal: see HPI All Other Systems: Reviewed and Negative Physical Exam General Appearance: Alert, No Apparent Distress Lower Extremity: nml inspection, non-tender, no pedal edema Joint Exam: painful weight bearing (Patient's pain is isolated to her left hip. On physical exam, she has pain in her greater trochanter bursa. She does not have any pain at all in her knee with good range of motion in the knee. Patient has no pain on passive flexion of the hip. She has pain with external rotation and inroads to internal rotation of the hip.) Vascular: no vascular compromise, pulses full/equal Neuro/Psych: sensation nml, motor nml, oriented x3, CN's nml as tested, mood/af fect nml Skin: color nml, warm/dry, no rash Back/Neck: nml inspection EENT: eyes inspection nml, ENT inspection nml, pharynx nml Respiratory: no resp distress, breath sounds nml CVS: reg rate & rhythm, heart sounds nml Abdomen: non-tender, no organomegaly, no bruit/mass Results/Orders Results/Orders Vital Signs Date Time Temp Pulse Resp B/P (MAP) Pulse Ox O2 Delivery O2 Flow Rate FiO2 09/14/20 10:53 97.7 96 22 194/73 (113) 94 Room Air 09/14/20 10:49 97.7 96 22 194/73 (113) 94 Room Air 09/14/20 10:49 97.7 96 22 94 09/14/20 10:49 97.7 96 22 Progress Progress I did a trochanter bursa injection in the left hip. Used 9 cc of 0.5% bupivacaine. And I used 40 mg of Depo-Medrol. The inferior bursa was the most painful and I used 7 cc in it and I used 2 cc in the superior bursa. Patient had complete relief of her pain post the injection. ER DEPART Departure Time of Disposition: 11:35 Disposition: 01 HOME, SELF-CARE Impression: Primary Impression: Bursitis Condition: Improved Referrals: MARCIE COYNE MD (PCP) PRIMARY CARE PROVIDER Duration or Time Spent with Pa: SHARMAINE Biggs MD September 14, 2020 11:36
[2020-09-14] MEDS ORDERED: EXPAREL 133 MG/10 ML VIAL IJ ONE (12:00)
== END 2020-09-14 11:38 | disposition home or self-care (01) ==
LOC: ER 10:35
DX: M71.9 Bursopathy, unspecified (principal); I10 Essential (primary) hypertension; J45.909 Unspecified asthma, uncomplicated; Z79.52 Long term (current) use of systemic steroids; Z79.899 Other long term (current) drug therapy; Z88.0 Allergy status to penicillin; Z90.49 Acquired absence of other specified parts of digestive tract; Z90.710 Acquired absence of both cervix and uterus; Z91.040 Latex allergy status
CPT/HCPCS: 20610; 99283; J3490; J1030

== ENCOUNTER → 2020-09-22 | Outpatient (CLI) | payer MEDICARE ==
[~2020-09-22] MED LIST changes: +KENALOG-40 IJ ONE; +LIDOCAINE 1% VIAL IJ ONE
--- NOTE | 2020-09-22 15:04 | DIREP ---
PROCEDURE:FLUOROSCOPIC GUIDANCE NEEDLE PLACEMENT COMPARISON:None. INDICATIONS:OA LEFT HIP,1 image,21.11 mGy,0.5 minute fluoro time,2cc Omni 240 used TECHNIQUE:After explaining the risks, benefits, and alternatives, both oral and written informed consent was obtained from the patient for fluoroscopically-guided hip steroid injection. The patient's left hip area was sterilely prepped and draped. The proposed needle tract was anesthetized with 1% lidocaine solution. Under fluoroscopic guidance, a 22 gauge spinal needle was advanced into the left hip joint. A small amount of contrast was injected confirm positioning. A mixture of 6 cc 2% lidocaine, and 1 cc of Kenalog 40 was injected into the hip joint. The needle was then removed. The patient experienced no postprocedural complication. Total fluoroscopy time 0.5 minutes FINDINGS:Imaging documents needle placement and injection of the left femoral head and anatomic neck. CONCLUSION:Fluoroscopic-guided left hip joint injection. Dictated by: Jairo Bianchi M.D. on 09/22/2020 at 03:00 PM
== END | disposition home or self-care (01) ==
LOC: RAD 13:10
PROVIDERS: ATTEND Orthopaedic Surgery
DX: M16.12 Unilateral primary osteoarthritis, left hip (principal)
CPT/HCPCS: 20610; 77002; J2001; J3301; Q9965